=== PATIENT | male | born 1955 | race American Indian/Alaskan Native ===

== ENCOUNTER 2016-10-28 12:21 | Emergency (ER) | payer MEDICAID ==
[2016-10-28] MEDS ORDERED: NORCO 5/325 PO ONE (16:34)
--- NOTE | 2016-10-28 18:00 | XRay Report ---
FINAL REPORT EXAM: XR WRIST 2V RT HISTORY: pain and swelling TECHNIQUE: 2 views of the right wrist PRIORS: None. FINDINGS: Multifocal degenerative articular surface irregularity. Small ossicles adjacent to the scaphoid may be from prior trauma or degenerative change. There is no acute fracture or dislocation. No evidence of osseous lesion. IMPRESSION: No acute skeletal pathology
--- NOTE | 2016-10-28 18:24 | Emergency Department Report ---
ED Extremity Problem HPI - General Chief complaint: Extremity Injury, Upper Stated complaint: RT HAND/WRIST PAIN Time Seen by Provider: 10/28/16 16:17 Source: patient Mode of arrival: Ambulatory Limitations: No Limitations - History of Present Illness Initial comments: PT c/o R wrist pain x 1 week. PT states he noticed the pain after he was cutting the grass. PT states he has had pain like this before and he thought the pain would go away, but it has not. 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 PT has elevated rheumotoid factor on previous admission. MD Complaint: extremity pain, extremity swelling Onset/Timin -: Gradual, week(s) Location: right, upper extremity -: Yes arthralgia, No fever Severity scale (0 -10): 9 Quality: aching Consistency: constant Improves with: medication (motrin ) Worsens with: palpation Associated Symptoms: denies other symptoms - Related Data Home Medications Medication Instructions Recorded Confirmed Last Taken Albuterol Sulfate [Proventil HFA] 2 puff INHALATION PRN PRN 08/30/13 08/04/15 05:00 Diltiazem HCl [Diltiazem ER] 120 mg PO BID 08/30/13 08/04/15 10/19/14 05:00 Hydrochlorothiazide 25 mg PO DAILY 08/30/13 08/04/15 10/04/14 08:00 cloNIDine [Catapres] 0.2 mg PO QHS 05/29/14 08/04/15 10/18/14 21:00 Fluticasone/Salmeterol [Advair 1 puff INHALATION BID 06/29/14 08/04/15 10/19/14 05:00 Diskus 250-50 mcg] Ibuprofen [Motrin 800 MG tab] 1 tab PO Q6HR PRN 10/19/14 08/04/15 10/18/14 08:00 Previous Rx's Medication Instructions Recorded Last Taken Type Acetaminophen/Codeine 1 tab PO Q6H PRN #10 tab 08/04/15 Unknown Rx [Acetaminophen-Codeine #3 TAB] Sulfamethoxazole/Trimethoprim 1 each PO BID #14 tablet 01/20/16 Unknown Rx [Bactrim DS TAB] Allergies Allergy/AdvReac Type Severity Reaction Status Date / Time No Known Allergies Allergy Verified 10/28/16 12:38 ED Review of Systems ROS: Stated complaint: RT HAND/WRIST PAIN Other details as noted in HPI Constitutional: denies: chills, fever Cardiovascular: denies: chest pain Musculoskeletal: as per HPI, joint swelling Skin: denies: rash, change in color ED Past Medical Hx - Past Medical History Hx Hypertension: Yes Hx Arthritis: Yes Hx Seizures: No Hx Asthma: Yes Hx COPD: Yes Additional medical history: "BACK PROBLEMS" - Surgical History Additional Surgical History: LEFT TIB / FIB FX. Patient states had to have hardware removed 1 week after placement due to infection. This was done at [facility] 2011 - Social History Smoking Status: Current Every Day Smoker Substance Use Type: Alcohol - Medications Home Medications: Home Medications Medication Instructions Recorded Confirmed Last Taken Type Albuterol Sulfate [Proventil HFA] 2 puff INHALATION PRN PRN 08/30/13 08/04/15 05:00 History Diltiazem HCl [Diltiazem ER] 120 mg PO BID 08/30/13 08/04/15 10/19/14 05:00 History Hydrochlorothiazide 25 mg PO DAILY 08/30/13 08/04/15 10/04/14 08:00 History cloNIDine [Catapres] 0.2 mg PO QHS 05/29/14 08/04/15 10/18/14 21:00 History Fluticasone/Salmeterol [Advair 1 puff INHALATION BID 06/29/14 08/04/15 10/19/14 05:00 History Diskus 250-50 mcg] Ibuprofen [Motrin 800 MG tab] 1 tab PO Q6HR PRN 10/19/14 08/04/15 10/18/14 08: 00 History Acetaminophen/Codeine 1 tab PO Q6H PRN #10 tab 08/04/15 Unknown Rx [Acetaminophen-Codeine #3 TAB] Sulfamethoxazole/Trimethoprim 1 each PO BID #14 tablet 01/20/16 Unknown Rx [Bactrim DS TAB] ED Physical Exam - General Limitations: No Limitations General appearance: alert, in no apparent distress - Head Head exam: Present: atraumatic, normocephalic - Eye Eye exam: Present: normal appearance, EOMI - Neck Neck exam: Present: normal inspection, full ROM. Absent: tenderness - Respiratory Respiratory exam: Present: normal lung sounds bilaterally. Absent: respiratory distress - Cardiovascular Cardiovascular Exam: Present: regular rate, normal rhythm, normal heart sounds - GI/Abdominal GI/Abdominal exam: Present: soft. Absent: tenderness - Extremities Exam Extremities exam: Present: normal capillary refill, joint swelling (R wrist ) - Expanded Upper Extremity Exam Right Upper Arm exam: Present: normal inspection Elbow exam: Present: normal inspection. Absent: tenderness, swelling Forearm Wrist exam: Present: tenderness, swelling. Absent: ecchymosis, deformity, crepidus, dislocation Hand Wrist exam: Present: full ROM, other (arthritic joints to Arsh hands ) Vascular: Present: normal capillary refill, radial pulse - Back Exam Back exam: Present: normal inspection, full ROM - Neurological Exam Neurological exam: Present: alert, oriented X3 - Psychiatric Psychiatric exam: Present: normal affect, normal mood - Skin Skin exam: Present: warm, dry, intact, normal color. Absent: rash, erythema ED Course Vital Signs 10/28/16 10/28/16 12:34 16:48 Temperature 98.2 F Pulse Rate 80 Respiratory 19 16 Rate Blood Pressure 97/66 O2 Sat by Pulse 95 Oximetry - Reevaluation(s) Reevaluation #1: 10/28/16 18:33 PT states pain decreased sp [place]. PT aware of XR result. PT has no questions regarding plan of care. - Pulse Oximetry Interpretation Digit-Finger Initial Pulse Oximetry Readin Actions Taken: none ED Medical Decision Making - Radiology Data Radiology results: report reviewed, image reviewed R wrist - Multifocal degenerative articular surface irregularity - Differential Diagnosis RA, OA, stress fracture Critical care attestation.: If time is entered above; I have spent that time in minutes in the direct care of this critically ill patient, excluding procedure time. ED Disposition Clinical Impression: Primary osteoarthritis, right wrist Disposition: DISCHARGED TO HOME OR SELFCARE Is pt being admited?: No Does the pt Need Aspirin: No Condition: Stable Instructions: Osteoarthritis (ED) Additional Instructions: No driving or ETOH after taking Tylenol #3 Referrals: PRIMARY CARE, [Primary Care Provider] - 3-5 Days Time of Disposition: 18:37
[2016-10-28 19:12] VITALS: BP 102/72
== END 2016-10-28 19:11 | disposition home or self-care (01) ==
LOC: ED 12:21
DX: M19.031 Primary osteoarthritis, right wrist (principal); I10 Essential (primary) hypertension; M19.90 Unspecified osteoarthritis, unspecified site; J45.909 Unspecified asthma, uncomplicated; J44.9 Chronic obstructive pulmonary disease, unspecified; F17.200 Nicotine dependence, unspecified, uncomplicated

== ENCOUNTER 2016-12-12 08:30 | Day surgery (SDC) | payer MEDICAID ==
[~2016-12-12 08:30] MED LIST: ANCEF/STERILE WATER 2 GM/20 ML 2 GM/20 ML SYRINGE IV NR
[2016-12-12] MEDS ORDERED: NACL BACTERIOSTATIC INFILTRATI ONE (09:07)
[2016-12-12] MEDS ORDERED: SUBLIMAZE IV ONE (09:36)
[2016-12-12] MEDS ORDERED: MORPHINE IV PRN (09:37)
[2016-12-12] MEDS ORDERED: ZOFRAN IV PRN (09:37)
--- NOTE | 2016-12-12 09:38 | Anesthesia Day of Surgery ---
Anesthesia Day of Surgery - Day of Surgery Patient Examined: Yes Patient H&P Reviewed: Yes Patient is NPO: Yes
--- NOTE | 2016-12-12 09:38 | Anesthesia Consultation ---
Anesthesia Consult and Med Hx Date of service: 12/12/16 - Airway Anesthetic Teeth Evaluation: Dentures ROM Head & Neck: Adequate Mental/Hyoid Distance: Adequate Mallampati Class: Class II Intubation Access Assessment: Probably Good - Pulmonary Exam CTA: Yes - Cardiac Exam Cardiac Exam: RRR - Pre-Operative Health Status ASA Pre-Surgery Classification: ASA3 Proposed Anesthetic Plan: General Nerve Block: supraclav - Pulmonary Hx Smoking: Yes (5 cigs/ day) Hx Asthma: Yes COPD: Yes Hx Pneumonia: No Hx Sleep Apnea: No - Cardiovascular System Hx Hypertension: Yes - Central Nervous System Hx Neuromuscular Disorder: No Hx Seizures: No CVA: No Hx Back Pain: Yes Hx Psychiatric Problems: No - Gastrointestinal Hx Gastroesophageal Reflux Disease: No - Endocrine Hx Non-Insulin Dependent Diabetes: No Hx Thyroid Disease: No - Other Systems Hx Alcohol Use: Yes (SOCIAL) Hx Cancer: No
[2016-12-12 09:39] LABS: Basophils % (Auto) 0.6 % (0.0-1.8); Eosinophils % (Auto) 0.9 % (0.0-4.3); Mean Corpuscular HGB Conc 32 % (32-34); Mean Corpuscular Hemoglobin 28 pg (28-32); Mean Corpuscular Volume 85 fl (84-94); Platelet Count 285 K/mm3 (140-440); Red Blood Count 4.35 M/mm3 (3.65-5.03); Red Cell Distribution Width 15.9 % (13.2-15.2); White Blood Count 9.3 K/mm3 (4.5-11.0)
[2016-12-12] MEDS ORDERED: MARCAINE-EPI 0.5%-1:200,000 INFILTRATI ONE (09:42)
[2016-12-12] MEDS ORDERED: DECADRON ONE ×2 (09:42→12:42)
[2016-12-12] MEDS ORDERED: XYLOCAINE 1% 20 mL ONE (09:43)
[2016-12-12] MEDS ORDERED: PROVENTIL IH NR (09:45)
--- NOTE | 2016-12-12 09:51 | Admit Criteria Form ---
Admission Criteria Documentation: AMBULATORY SURGERY EXCEPTION CRITERIA Ambulatory Surgery Exception Criteria ( Place 'X' for any and all applicable criteria): Surgery or procedure performed on ambulatory basis may require inpatient stay for[A] ANY ONE of the following(1)(2)(3)(4)(5)(6)(7)(8)(9): [X] I. A preoperative situation, condition, or finding that warrants inpatient stay as indicated by ANY ONE of the following: [] a) Inpatient care needed because of severity of a disease or condition rather than the surgery (eg, severe cardiac or respiratory disease, severe infection) (15) (16 ) (17) (18) [] b) Emergent procedure (eg, angioplasty for acute ischemia)(19) [] c) Complex surgical approach or situation as indicated by ANY ONE of the following(3): [] i) Open approach needed instead of usual endoscopic, transcatheter, or other less invasive procedure [] ii) Difficult approach because of previous operation [] iii) Airway monitoring required after open neck procedures(20)(21) [] iv) Large mass requiring unusually extensive dissection [] v) Additional complicating feature requiring inpatient care (eg, drain management)(22(23): [X] d) Major surgery in a pt with high anesthetic risk as indicated by ANY ONE of the following (2)(3)(5)(7)(8): [X] i) ASA risk class III or higher (severe systemic disease impairing function) [D] [] ii) Advanced age (eg, older than 85 years)(14)(24) [] iii) Symptomatic heart failure(25) [] iv) Symptomatic asthma or COPD(8)(21) [] v) Morbid obesity with hemodynamic or respiratory problems(20)( 21)(26)(27) [] vi) Obstructive sleep apnea(20)(21) [] vii) Former premature infants who are younger than 60 weeks [] viii) High risk for severe postoperative abnormalities (eg, severe postoperative hypocalcemia after parathyroidectomy for severe hyperparathyroidism)(27)( 28) [] ix) Unstable angina(25) [] e) Drug-related risk requiring inpatient stay as indicated by ANY ONE of the following(5)(10)(14)(32)(33) [] i) Procedure requires discontinuing drugs or other therapy (eg , antiarrhythmic medication, antiseizure medication), which necessitates inpatient observation or treatment.(18)(31) [] ii) Major surgery and high risk drug use as indicated by ANY ONE of the following: [] 1) Active abuse of cocaine or similar drug [] 2) Monoamine oxidase inhibitor use [] 3) Other drug identified as posing risk [] f) Inadequate outpatient care situation as indicated by ANY ONE of the following(5)(10)(14)(32)(33) [] i) Patient lives remote from medical facility and procedure has urgent complication potential, and temporary nearby residence cannot be arranged [] ii) Patient will have postprocedure incapacitation and inadequate assistance at home, or alternative level of care cannot be arranged. [] iii) Patient will have long general anesthesia or procedure side effect resolution time, and competent person to stay with patient on first postoperative night at home or alternative level of care cannot be arranged. []iv) Other inadequate outpatient situation that cannot be handled by other means [] II. A perioperative event, condition, or finding that warrants inpatient stay as indicated by ANY ONE of the following (1)(2)(3): [] a) Inadequate physiologic recovery: cardiovascular, respiratory, or hemodynamic status not normal or near preoperative baseline(18) [] b) Hemodynamic instability [] c) Patient not alert with near normal or baseline mental status [] d) Temperature not normal or as expected and not appropriate for outpatient treatment of condition [] e) Ambulatory or appropriate activity level status not yet achieved post procedure [E](34)(35)(36) [] f) Operative site not appropriate (eg, unexpected or excessive drainage or bleeding) [] g) Postoperative effects not resolved or adequately managed (eg, significant pain or vomiting not appropriate for outpatient or next level of care)(10)(12) [] h) Complicating features requiring inpatient care as indicated by ANY ONE of the following(37): [] i) Severe complications of procedure (eg, bowel injury, airway compromise, vascular injury,severe hemorrhage) [] ii) Extensive (eg, dissection far beyond usual scope of procedure ) or prolonged (eg, 120 minutes beyond usual) surgery needed requiring inpatient postoperative care [] iii) Conversion to an open or complex procedure that requires inpatient care (eg, open vs laparoscopic cholecystectomy, abdominal vs vaginal hysterectomy)(38) [] iv) Comorbid condition or test result identified during or post procedure that requires inpatient care (7) [] v) Malignant hyperthermia(30) [] vi) Other complicating feature requiring inpatient care(22)(23) Inpatient stay may be needed until ALL of the following are present (1)(2)(3)(4) (5)(6)(10)(14)(33)(40): []a) Physiologic recovery: cardiovascular, respiratory, and hemodynamic status normal or near preoperative baseline []b) Hemodynamic stability []c) Patient alert, with near normal or baseline mental status []d) Temperature appropriate: patient afebrile or temperature appropriate for outpt treatment of condition []e) Activity level appropriate: ambulatory or appropriate activity level post procedure []f) Operative site appropriate as indicated by ALL of the following: []i) Site dry or with expected drainage []ii) Any blood noted is as expected for procedure. []g) Postoperative effects resolved or managed as indicated by ALL of the following: []i) Pain management appropriate for outpatient (or next level of) care(10) []ii) Minimal nausea and vomiting: if present, successfully treated with oral medication(12) []iii) Headache, dizziness, or drowsiness (if present) are mild. []h) Voiding status acceptable as indicated by ANY ONE of the following: []i) Voiding spontaneously []ii) No voiding but instructions given for follow-up in 6 to 8 hours []iii) Urinary catheter in place, and instructions given for follow-up []i) Complicating features requiring inpatient care manageable at a lower level of care(37) []j) Comorbid conditions manageable at a lower level of care(37) The original [employer] content created by [employer] has been revised. The portions of the content which have been revised are identified through the use of italic text or in bold, and [employer] has neither reviewed nor approved the modified material. All other unmodified content is copyright [employer]. Please see references footnoted in the original [employer] edition 2016 Admission Criteria Met: Yes
[2016-12-12] MEDS ORDERED: SUBLIMAZE ONE (09:57)
[2016-12-12] MEDS ORDERED: DIPRIVAN 10 MG/ML IV ONE (09:57)
[2016-12-12] MEDS ORDERED: XYLOCAINE MPF 2% ONE (09:59)
[2016-12-12] MEDS ORDERED: VERSED IV NR (10:00)
[2016-12-12] MEDS ORDERED: NACL 0.9% 1000 ML 1,000 ML IV SCH (10:00)
[2016-12-12] MEDS ORDERED: PEPCID PO NR (10:00)
[2016-12-12] MEDS ORDERED: MARCAINE 0.5% INFILTRATI ONE (12:13)
[2016-12-12] MEDS ORDERED: ZOFRAN ONE (12:42)
[2016-12-12] MEDS ORDERED: ePHEDrine SULFATE ONE (12:46)
[2016-12-12] MEDS ORDERED: NACL 0.9% 100 ML ONE (13:07)
[2016-12-12] MEDS ORDERED: NEO SYNEPHRINE ONE (13:07)
--- NOTE | 2016-12-12 13:39 | Short Stay Summary ---
Short Stay Documentation Date of service: 12/12/16 - History H&P: obtained from office - Allergies and Medications Current Medications: Allergies No Known Allergies Allergy (Verified 10/28/16 12:38) Home Medications Medication Instructions Recorded Confirmed Last Taken Type Albuterol Sulfate [Proventil HFA] 2 puff INHALATION PRN PRN 08/30/13 12/12/16 History Diltiazem HCl [Diltiazem ER] 120 mg PO BID 08/30/13 12/12/16 12/12/16 07:00 History Hydrochlorothiazide 25 mg PO DAILY 08/30/13 12/12/16 12/12/16 07:00 History cloNIDine [Catapres] 0.2 mg PO QHS 05/29/14 12/06/16 09/26/16 History Fluticasone/Salmeterol [Advair 1 puff INHALATION BID 06/29/14 12/12/16 12/12/16 07:00 History Diskus 250-50 mcg] Acetaminophen/Codeine [Tylenol #3] 1 tab PO Q6H PRN #12 tab 10/28/16 12/12/16 Rx Active Medications Albuterol (Proventil) 2.5 mg IH PREOP NR Stop: 12/12/16 23:59 Last Admin: 12/12/16 10:20 Dose: 2.5 mg Famotidine (Pepcid) 20 mg PO PREOP NR Stop: 12/12/16 23:59 Last Admin: 12/12/16 09:56 Dose: 20 mg Cefazolin Sodium (Ancef/Sterile Water 2 Gm/20 Ml) 2 gm in 20 mls @ 80 mls/hr IV PREOP NR PRN Reason: Protocol Stop: 12/12/16 23:59 Sodium Chloride (Nacl 0.9% 1000 Ml) 1,000 mls @ 75 mls/hr IV DIRECT DEJA Last Admin: 12/12/16 09:55 Dose: 75 mls/hr Midazolam HCl (Versed) 2 mg IV PREOP NR Stop: 12/12/16 23:59 Last Admin: 12/12/16 10:01 Dose: 2 mg Morphine Sulfate (Morphine) 2 mg IV Q10MIN PRN PRN Reason: Pain, Moderate (4-6) Stop: 12/15/16 09:38 - Brief post op/procedure progress note Date of procedure: 12/12/16 Pre-op diagnosis: 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 Post-op diagnosis: same Procedure: Arthrodesis MP left thumb; Radial styleidectomy left Anesthesia: GETA Surgeon: VINCENT MCADAMS Estimated blood loss: minimal Pathology: none - Disposition Condition at discharge: Stable Disposition: DISCHARGED TO HOME OR SELFCARE Short Stay Discharge Plan Follow up with: MAXWELL SNYDER MD [Primary Care Provider] - 7 Days
--- NOTE | 2016-12-12 13:47 | Post Anesthesia Evaluation ---
- Post Anesthesia Evaluation Patient Participated: Yes Airway Patent: Yes Stable Respiratory Function: Yes Nausea/Vomiting: No Temp > 96.8F: Yes Pain Manageable: Yes Adequeate Hydration: Yes Anesthesia Complications: No Block Receding Appropriately: Not Applicable Patient on Ventilator: No
[2016-12-12 14:03] VITALS: BP 135/78
--- NOTE | 2016-12-12 15:02 | XRay Report ---
RIGHT FINGERS, 2 VIEWS History: Right thumb dislocation, osteoarthritis, pain. Findings: Fluoroscopic images of the right fingers were obtained during surgery. Arthrodesis at the first metacarpophalangeal joint is noted. The hardware appears well applied. No acute fracture is demonstrated. Please correlate with the procedural report by Dr. Emery. Impression: Right thumb arthrodesis as described.
--- NOTE | 2016-12-15 20:43 | Operative Report ---
PREOPERATIVE DIAGNOSIS: Arthritis and dislocation of the MP joint of the right thumb, and arthritis of the carpal radial joint. PROCEDURE: Arthrodesis of the MP joint of the right thumb, and radial styloid ostectomy. SURGEON: Mickey Emery M.D. SUPERINTENDENT PRODUCTION: Johnson Barlow M.D. ANESTHESIA: Local block. COMPLICATIONS: None. DESCRIPTION OF THE PROCEDURE: Once the patient was in the surgical room, a time-out was carried out to identify the patient and procedure. Once this was done, the procedure was carried out by making an incision over the dorsum of the MP joints of the thumb. The tendon at ulnar border retracted radially, exposing the joint. Once this was carried out the joint was found to be degenerative and distal phalanx dislocated volarly. At this point cleaning out of the was carried out with a small hand chisel. Once this was done, using fluoroscopy a guidewire was inserted into the central position of the metacarpal. This allowed for the reaming of the area. The insertion was followed by intramedullary locking screw. Once the screw was inserted, using rasp, rasping of the surface of the metacarpal was carried out to the level of the joint. This allowed for the angle of the 30 degrees for the arthrodesis. A second K-wire was then passed from the proximal metacarpal through the screw into the proximal phalanx. Again, these were checked with fluoroscopy. Once this was done, a measurement of the area was done and a compression screw was inserted into the area. The screw was used to tighten up and compress the arthrodesis site. Once this was done, the procedure was then terminated. X-rays demonstrated good position of the surfaces and compression. Using Vicryl suture the tendon was repaired and closure of the joint was done and subcutaneous tissue. The skin was closed with a running nylon suture. Once this was done, the attention was carried down to the wrist. An incision was carried out for distal radius in the volar surface and dissection was carried down to the subcutaneous tissues was dissected and perfected. This was in the radial styloid and the styloid with scaphoid joints. About 0.5 cm of the distal styloid was then resected using malletted chisel and rongeur. Once the prominences of bone were removed and irrigated, the procedure was then terminated. The wound was irrigated by closing the subcutaneous tissues with Vicryl and skin with a running nylon suture. Once this was done a compression bandage was applied. The patient tolerated the procedure well. There were no complications. JOB# [id number] RONNELL/LALI DUDLEY
== END 2016-12-12 08:31 | disposition home or self-care (01) ==
LOC: OR 08:30
DX: S63.114A Dislocation of metacarpophalangeal joint of right thumb, initial encounter (principal); M19.031 Primary osteoarthritis, right wrist; I10 Essential (primary) hypertension; J43.9 Emphysema, unspecified; J45.909 Unspecified asthma, uncomplicated; F17.210 Nicotine dependence, cigarettes, uncomplicated; Z79.899 Other long term (current) drug therapy; Z72.89 Other problems related to lifestyle; Z83.3 Family history of diabetes mellitus; Z82.49 Family history of ischemic heart disease and other diseases of the circulatory system; Z80.9 Family history of malignant neoplasm, unspecified; Z82.3 Family history of stroke; X58.XXXA Exposure to other specified factors, initial encounter
CPT/HCPCS: 25151; 26850; 36415; 64450; 73140; 84132; 85025; 88304; 88311; C1713; J0690; J1100; J2250; J2370; J2405; J2704; J3010; J7030; 88305

== ENCOUNTER 2017-01-26 14:43 | Emergency (ER) | payer MEDICAID ==
--- NOTE | 2017-01-26 16:25 | XRay Report ---
Right ankle 3 views. History: Pain and swelling. Findings: There are no fractures or other acute findings. Mild soft tissue swelling is noted medially. There are no other significant findings.
[2017-01-26] MEDS ORDERED: PERCOCET 5/325 PO ONE (18:34)
--- NOTE | 2017-01-26 18:34 | Emergency Department Report ---
ED Extremity Problem HPI - General Chief complaint: Extremity Injury, Lower Stated complaint: R FOOT PAIN Time Seen by Provider: 01/26/17 17:19 Source: patient Mode of arrival: Ambulatory Limitations: No Limitations - History of Present Illness Initial comments: PT c/o R ankle pain and swelling. PT sates he woke up yesterday with the pain. PT denies known injury but states he has a lot of joint problems, previous work up for RA negative. PT states he had R thumb surgery 12-12-16 after he fell. PT states at that time, his knees gave out on him. PT states his knees did not recently give out but he could have twisted his ankle on Sun. PT states he walked a lot on Sun. MD Complaint: joint swelling, joint paint Onset/Timin -: days(s) Location: right, lower extremity (ankle ) Severity scale (0 -10): 9 Quality: constant Consistency: constant Improves with: nothing Worsens with: weight bearing, walking Associated Symptoms: denies other symptoms. denies: chest pain, shortness of breath, fever - Related Data Home Medications Medication Instructions Recorded Confirmed Last Taken Albuterol Sulfate [Proventil HFA] 2 puff INHALATION PRN PRN 08/30/13 12/12/16 Diltiazem HCl [Diltiazem ER] 120 mg PO BID 08/30/13 12/12/16 12/12/16 07:00 Hydrochlorothiazide 25 mg PO DAILY 08/30/13 12/12/16 12/12/16 07:00 cloNIDine [Catapres] 0.2 mg PO QHS 05/29/14 12/06/16 09/26/16 Fluticasone/Salmeterol [Advair 1 puff INHALATION BID 06/29/14 12/12/16 12/12/16 07:00 Diskus 250-50 mcg] Previous Rx's Medication Instructions Recorded Last Taken Type Acetaminophen/Codeine [Tylenol #3] 1 tab PO Q6H PRN #7 tab 01/26/17 Unknown Rx Ibuprofen [Motrin] 400 mg PO Q8H PRN #14 tablet 01/26/17 Unknown Rx Allergies Allergy/AdvReac Type Severity Reaction Status Date / Time No Known Allergies Allergy Verified 10/28/16 12:38 ED Review of Systems ROS: Stated complaint: R FOOT PAIN Other details as noted in HPI Comment: All other systems reviewed and negative Constitutional: denies: chills, fever Respiratory: other (pt states he has a hx of COPD but denies being SOB ). denies: shortness of breath Cardiovascular: denies: chest pain Gastrointestinal: denies: abdominal pain, nausea, vomiting Musculoskeletal: joint swelling, other (pt in RUE velcro splint) Skin: denies: rash, change in color ED Past Medical Hx - Past Medical History Hx Hypertension: Yes Hx Arthritis: Yes Hx Seizures: No Hx Asthma: Yes Hx COPD: Yes Hx Tuberculosis: No Hx HIV: No Additional medical history: "BACK PROBLEMS" - Surgical History Additional Surgical History: LEFT TIB / FIB FX. Patient states had to have hardware removed 1 week after placement due to infection. This was done at [facility] 2011 - Social History Smoking Status: Current Every Day Smoker Substance Use Type: None - Medications Home Medications: Home Medications Medication Instructions Recorded Confirmed Last Taken Type Albuterol Sulfate [Proventil HFA] 2 puff INHALATION PRN PRN 08/30/13 12/12/16 History Diltiazem HCl [Diltiazem ER] 120 mg PO BID 08/30/13 12/12/16 12/12/16 07:00 History Hydrochlorothiazide 25 mg PO DAILY 08/30/13 12/12/16 12/12/16 07:00 History cloNIDine [Catapres] 0.2 mg PO QHS 05/29/14 12/06/16 09/26/16 History Fluticasone/Salmeterol [Advair 1 puff INHALATION BID 06/29/14 12/12/16 12/12/16 07:00 History Diskus 250-50 mcg] Acetaminophen/Codeine [Tylenol #3] 1 tab PO Q6H PRN #7 tab 01/26/17 Unknown Rx Ibuprofen [Motrin] 400 mg PO Q8H PRN #14 tablet 01/26/17 Unknown Rx ED Physical Exam - General Limitations: No Limitations General appearance: alert, in no apparent distress - Head Head exam: Present: atraumatic, normocephalic, normal inspection - Eye Eye exam: Present: normal appearance. Absent: conjunctival injection - ENT ENT exam: Present: normal exam, normal external ear exam - Neck Neck exam: Present: normal inspection, full ROM - Respiratory Respiratory exam: Present: wheezes (ext wheeze chloé). Absent: respiratory distress, rhonchi, stridor, accessory muscle use, decreased breath sounds - Cardiovascular Cardiovascular Exam: Present: regular rate, normal rhythm, normal heart sounds - GI/Abdominal GI/Abdominal exam: Present: soft. Absent: tenderness - Extremities Exam Extremities exam: Absent: calf tenderness - Expanded Upper Extremity Exam Right Hand Wrist exam: Absent: normal inspection (surgical scar to R thumb base ), erythema Vascular: Absent: vascular compromise - Expanded Lower Extremity Exam Right Knee exam: Present: normal inspection. Absent: tenderness Lower Leg exam: Present: normal inspection, full ROM. Absent: tenderness, swelling, Sherry's sign Ankle exam: Present: tenderness (to the medial aspect ), swelling. Absent: full ROM (due to pain ), abrasion, ecchymosis, dislocation, erythema Foot/Toe exam: Present: normal inspection. Absent: tenderness, laceration, puncture wound, calcaneal tenderness, tenderness at base of 5th metatarsal Neuro vascular tendon exam: Absent: no vascular compromise Gait: Positive: observed and limited by pain - Back Exam Back exam: Present: normal inspection, full ROM - Neurological Exam Neurological exam: Present: alert, oriented X3 - Psychiatric Psychiatric exam: Present: normal affect, normal mood - Skin Skin exam: Present: warm, dry, intact, normal color ED Course Vital Signs 01/26/17 01/26/17 01/26/17 15:05 18:56 19:30 Temperature 98.5 F Pulse Rate 99 H Respiratory 17 18 18 Rate Blood Pressure 111/75 Blood Pressure [Left] O2 Sat by Pulse 99 Oximetry 01/26/17 19:50 Temperature Pulse Rate 90 Respiratory 18 Rate Blood Pressure Blood Pressure 136/66 [Left] O2 Sat by Pulse 96 Oximetry - Reevaluation(s) Reevaluation #1: 01/26/17 19:25 PT placed in Velcro stirrup splint by nursing. pt nvi. pt aware of need to follow up with ortho ED Medical Decision Making - Radiology Data Radiology results: report reviewed xr R ankle - no fx, mild soft tissue swelling noted medially - Medical Decision Making low risk for DVT due to Well's criteria, negative Sherry's - Differential Diagnosis strain, ra, oa, fx Critical Care Time: No Critical care attestation.: If time is entered above; I have spent that time in minutes in the direct care of this critically ill patient, excluding procedure time. ED Disposition Clinical Impression: Acute right ankle pain Disposition: TO HOME OR SELFCARE Is pt being admited?: No Does the pt Need Aspirin: No Condition: Stable Instructions: Ankle Sprain (ED), Ankle Stirrup Splint (ED), Arthralgia (ED), RICE Therapy (ED) Additional Instructions: follow up with Ortho in 3-5 days No driving or alcohol after taking Tylenol #3 return to ED if worsening or concerns Prescriptions: Acetaminophen/Codeine [Tylenol #3] 1 tab PO Q6H PRN #7 tab PRN Reason: Pain , Severe (7-10) Ibuprofen [Motrin] 400 mg PO Q8H PRN #14 tablet PRN Reason: Pain Referrals: PRIMARY CARE, [Primary Care Provider] - 3-5 Days DELFINO MOJICA MD [Staff Physician] - 3-5 Days ATUL BERNAL MD [Staff Physician] - 3-5 Days Time of Disposition: 19:31
[2017-01-26 21:03] VITALS: BP 136/66
== END 2017-01-26 19:50 | disposition home or self-care (01) ==
LOC: ED 14:43
DX: M25.571 Pain in right ankle and joints of right foot (principal); F17.200 Nicotine dependence, unspecified, uncomplicated; M19.90 Unspecified osteoarthritis, unspecified site; J44.9 Chronic obstructive pulmonary disease, unspecified; J45.909 Unspecified asthma, uncomplicated; X58.XXXA Exposure to other specified factors, initial encounter; Y93.89 Activity, other specified; Y99.8 Other external cause status; Y92.89 Other specified places as the place of occurrence of the external cause

== ENCOUNTER 2017-06-26 09:36 | Emergency (ER) | payer MEDICAID ==
--- NOTE | 2017-06-26 10:27 | Emergency Department Report ---
- General Chief Complaint: Skin/Abscess/Foreign Body Stated Complaint: NECK PAIN Time Seen by Provider: 06/26/17 10:23 Source: patient Mode of arrival: Ambulatory Limitations: No Limitations - History of Present Illness Initial Comments: Patient reports an abscess on his neck that started one week ago, however he attempted to squeezed the abscess which has resulted in an infective rash Onset/Timin -: week(s) Location: neck Place: home Associated Symptoms: pain Treatments Prior to Arrival: bandage - Related Data Home Medications Medication Instructions Recorded Confirmed Last Taken Albuterol Sulfate [Proventil HFA] 2 puff INHALATION PRN PRN 08/30/13 12/12/16 Diltiazem HCl [Diltiazem 24Hr ER] 120 mg PO BID 08/30/13 12/12/16 12/12/16 07:00 Hydrochlorothiazide 25 mg PO DAILY 08/30/13 12/12/16 12/12/16 07:00 cloNIDine [Catapres] 0.2 mg PO QHS 05/29/14 12/06/16 09/26/16 Fluticasone/Salmeterol [Advair 1 puff INHALATION BID 06/29/14 12/12/16 12/12/16 07:00 Diskus 250-50 mcg] Previous Rx's Medication Instructions Recorded Last Taken Type Acetaminophen/Codeine [Tylenol #3] 1 tab PO Q6H PRN #7 tab 01/26/17 Unknown Rx Ibuprofen [Motrin] 400 mg PO Q8H PRN #14 tablet 01/26/17 Unknown Rx Acetaminophen [Tylenol Extra 500 mg PO Q6HRT #30 tablet 06/26/17 Unknown Rx Strength] Clindamycin [Clindamycin CAP] 300 mg PO Q8H #30 cap 06/26/17 Unknown Rx Allergies Allergy/AdvReac Type Severity Reaction Status Date / Time No Known Allergies Allergy Verified 06/26/17 09:58 ED Review of Systems ROS: Stated complaint: NECK PAIN Other details as noted in HPI Constitutional: denies: chills, diaphoresis, fever, malaise, weakness Eyes: denies: eye pain, eye discharge, vision change ENT: denies: ear pain, throat pain, dental pain, hearing loss Respiratory: denies: cough, orthopnea, shortness of breath, SOB with exertion, SOB at rest, stridor, wheezing Cardiovascular: denies: chest pain, palpitations, dyspnea on exertion, orthopnea Gastrointestinal: denies: abdominal pain, nausea, vomiting, diarrhea, constipation Musculoskeletal: denies: back pain, joint swelling, arthralgia Skin: rash (anterior neck), change in color (anterior neck). denies: lesions, change in hair/nails, pruritus Neurological: denies: headache, weakness, numbness, paresthesias, confusion Psychiatric: denies: anxiety, depression Hematological/Lymphatic: denies: easy bleeding, easy bruising, swollen glands ED Past Medical Hx - Past Medical History Previous Medical History?: Yes Hx Hypertension: Yes Hx Arthritis: Yes Hx Seizures: No Hx Asthma: Yes Hx COPD: Yes Hx Tuberculosis: No Hx HIV: No Additional medical history: "BACK PROBLEMS" - Surgical History Additional Surgical History: LEFT TIB / FIB FX. Patient states had to have hardware removed 1 week after placement due to infection. This was done at [facility] 2011. Thumb dislocation with reduction - Social History Smoking Status: Current Every Day Smoker Substance Use Type: None - Medications Home Medications: Home Medications Medication Instructions Recorded Confirmed Last Taken Type Albuterol Sulfate [Proventil HFA] 2 puff INHALATION PRN PRN 08/30/13 12/12/16 History Diltiazem HCl [Diltiazem 24Hr ER] 120 mg PO BID 08/30/13 12/12/16 12/12/16 07: 00 History Hydrochlorothiazide 25 mg PO DAILY 08/30/13 12/12/16 12/12/16 07:00 History cloNIDine [Catapres] 0.2 mg PO QHS 05/29/14 12/06/16 09/26/16 History Fluticasone/Salmeterol [Advair 1 puff INHALATION BID 06/29/14 12/12/16 12/12/16 07:00 History Diskus 250-50 mcg] Acetaminophen/Codeine [Tylenol #3] 1 tab PO Q6H PRN #7 tab 01/26/17 Unknown Rx Ibuprofen [Motrin] 400 mg PO Q8H PRN #14 tablet 01/26/17 Unknown Rx Acetaminophen [Tylenol Extra 500 mg PO Q6HRT #30 tablet 06/26/17 Unknown Rx Strength] Clindamycin [Clindamycin CAP] 300 mg PO Q8H #30 cap 06/26/17 Unknown Rx ED Physical Exam - General Limitations: No Limitations General appearance: alert, in no apparent distress - Head Head exam: Present: atraumatic, normocephalic, normal inspection - Eye Eye exam: Present: normal appearance, PERRL, EOMI - ENT ENT exam: Present: normal exam, normal orophraynx, mucous membranes moist. Absent: mucous membranes dry - Neck Neck exam: Present: tenderness, full ROM, other (2 cm lesion with erythema and induration, no fluctuance). Absent: meningismus, lymphadenopathy, thyromegaly - Respiratory Respiratory exam: Present: normal lung sounds bilaterally. Absent: respiratory distress, wheezes, rales, rhonchi, stridor, chest wall tenderness, accessory muscle use, decreased breath sounds, prolonged expiratory - Cardiovascular Cardiovascular Exam: Present: regular rate, normal rhythm, normal heart sounds. Absent: systolic murmur, diastolic murmur, rubs, gallop - Extremities Exam Extremities exam: Present: normal inspection, full ROM, normal capillary refill. Absent: tenderness, pedal edema, joint swelling - Back Exam Back exam: Present: normal inspection, full ROM. Absent: tenderness, CVA tenderness (R), CVA tenderness (L) - Neurological Exam Neurological exam: Present: alert, oriented X3, CN II-XII intact, normal gait, reflexes normal. Absent: motor sensory deficit - Psychiatric Psychiatric exam: Present: normal affect, normal mood. Absent: depressed, agitated - Skin Skin exam: Present: warm, dry, intact, normal color ED Course Vital Signs 06/26/17 06/26/17 09:58 10:41 Temperature 98 F 98.7 F Pulse Rate 79 75 Respiratory 18 16 Rate Blood Pressure 137/88 Blood Pressure 116/74 [Left] O2 Sat by Pulse 97 96 Oximetry ED Medical Decision Making - Lab Data Vital Signs 06/26/17 06/26/17 09:58 10:41 Temperature 98 F 98.7 F Pulse Rate 79 75 Respiratory 18 16 Rate Blood Pressure 137/88 Blood Pressure 116/74 [Left] O2 Sat by Pulse 97 96 Oximetry - Medical Decision Making During the course of ED, all other systems are unremarkable except for documentation in HPI. Patient was instructed to apply a warm compress to the area three times a day, prescribed Clindamycin and Tylenol ES, instructed to follow up with PCP this week. He verbalized understanding - Differential Diagnosis Cellulitis, Abscess Critical care attestation.: If time is entered above; I have spent that time in minutes in the direct care of this critically ill patient, excluding procedure time. ED Disposition Clinical Impression: Cellulitis Qualifiers: Site of cellulitis: neck Qualified Code(s): L03.221 - Cellulitis of neck Disposition: DC- TO HOME OR SELFCARE Is pt being admited?: No Does the pt Need Aspirin: No Condition: Stable Additional Instructions: Take medication as directed. Apply a warm compress to the area three times a day. Follow up with your PCP Prescriptions: Acetaminophen [Tylenol Extra Strength] 500 mg PO Q6HRT #30 tablet Clindamycin [Clindamycin CAP] 300 mg PO Q8H #30 cap Referrals: MAXWELL SNYDER MD [Primary Care Provider] - 3-5 Days Time of Disposition: 10:33
[2017-06-26 10:42] VITALS: BP 116/74
== END 2017-06-26 10:42 | disposition home or self-care (01) ==
LOC: ED 09:36
DX: L03.221 Cellulitis of neck (principal); I10 Essential (primary) hypertension; M19.90 Unspecified osteoarthritis, unspecified site; J45.909 Unspecified asthma, uncomplicated; J44.9 Chronic obstructive pulmonary disease, unspecified; F17.200 Nicotine dependence, unspecified, uncomplicated
CPT/HCPCS: 99282

== ENCOUNTER 2017-07-31 12:17 | Emergency (ER) | payer MEDICAID ==
[2017-07-31 14:08] VITALS: BP 97/62
== END 2017-07-31 22:39 | disposition left against medical advice (07) ==
LOC: ED 12:17
DX: J11.1 Influenza due to unidentified influenza virus with other respiratory manifestations (principal); Z53.21 Procedure and treatment not carried out due to patient leaving prior to being seen by health care provider
CPT/HCPCS: 87116; 87400; 87430

== ENCOUNTER 2019-01-24 17:29 | Outpatient (CLI) | payer MEDICAID | END 2019-01-24 17:30 | disposition home or self-care (01) | LOC: LAB 17:29 | PROVIDERS: ATTEND Internal Medicine Nephrology | DX: I12.9 Hypertensive chronic kidney disease with stage 1 through stage 4 chronic kidney disease, or unspecified chronic kidney disease (principal); N18.3 Chronic kidney disease, stage 3 (moderate); E83.42 Hypomagnesemia; N40.0 Benign prostatic hyperplasia without lower urinary tract symptoms; E87.5 Hyperkalemia | CPT/HCPCS: 36415; 80048 ==

== ENCOUNTER 2019-09-21 15:57 | Emergency (ER) | payer MEDICAID ==
--- NOTE | 2019-09-21 16:23 | Event Note ---
ED Screening Note Date of service: 09/21/19 Time: 16:21 ED Screening Note: c/o bilateral lower leg swelling and pain x 2 weeks and chronic right knee pain hx of arthritis denies hx of CHF This initial assessment/diagnostic orders/clinical plan/treatment(s) is/are subject to change based on patients health status, clinical progression and re- assessment by fellow clinical providers in the ED. Further treatment and workup at subsequent clinical providers discretion. Patient/guardian urged not to elope from the ED as their condition may be serious if not clinically assessed and managed. Initial orders include: labs
[2019-09-21 16:25] VITALS: BP 132/76
[2019-09-21 16:48] LABS: Basophils % (Auto) 0.7 % (0.0-1.8); Eosinophils # (Auto) 0.2 K/mm3 (0.0-0.4); Eosinophils % (Auto) 4.9 % (0.0-4.3); Hematocrit 27.4 % (35.5-45.6); Hemoglobin 8.4 gm/dl (11.8-15.2); Lymphocytes # (Auto) 0.8 K/mm3 (1.2-5.4); Lymphocytes % (Auto) 19.5 % (13.4-35.0); Mean Corpuscular HGB Conc 31 % (32-34); Mean Corpuscular Volume 72 fl (84-94); Monocytes # (Auto) 0.6 K/mm3 (0.0-0.8); Platelet Count 237 K/mm3 (140-440); Red Blood Count 3.79 M/mm3 (3.65-5.03); Red Cell Distribution Width 18.8 % (13.2-15.2)
[2019-09-21 17:04] LABS: Albumin 3.2 g/dL (3.9-5); Bilirubin,Direct 0.2 mg/dL (0-0.2); Calcium 9.1 mg/dL (8.4-10.2)
--- NOTE | 2019-09-21 17:41 | Emergency Department Report ---
ED Extremity Problem HPI - General Chief complaint: Extremity Problem,Nontraumatic Stated complaint: RT KNEE AND RT AND LT ANKLE PAIN Time Seen by Provider: 09/21/19 16:21 Source: patient, old records reviewed Mode of arrival: Ambulatory Limitations: No Limitations - History of Present Illness Initial comments: 64-year-old man e with a past medical history of osteoarthritis with chronic joint, COPD, asthma, hypertension, chronic joint pain presents to the hospital with complaints of progressive worsening lower extremity edema for the last 1 month. Patient presents with significant bilateral ankle edema. Patient has chronic shortness of breath due to COPD and has slept in a recliner since his hip replacement in June. Patient states he has been elevating his legs intermittently. He denies history of CHF in the past. Patient does see Dr. Patel high pressure cleaner and has labs ordered in January [address] Dejesus on record. Patient states that he was on Lasix however, they were discontinued at that time due to worsening renal function. Patient is not currently on any diuretics and takes Lokelma for his kidneys. Patient has a secondary complaint of right knee pain which is chronic with no reports of acute injury. PMD: Not affiliated - Related Data Home Medications Medication Instructions Recorded Confirmed Last Taken Albuterol Sulfate [Proventil HFA] 2 puff INHALATION PRN PRN 08/30/13 12/12/16 12/11/16 Diltiazem HCl [Diltiazem 24Hr ER] 120 mg PO BID 08/30/13 12/12/16 12/12/16 07:00 hydroCHLOROthiazide 25 mg PO DAILY 08/30/13 12/12/16 12/12/16 07:00 [Hydrochlorothiazide] cloNIDine [Catapres] 0.2 mg PO QHS 05/29/14 12/06/16 09/26/16 Fluticasone/Salmeterol [Advair 1 puff INHALATION BID 06/29/14 12/12/16 12/12/16 07:00 Diskus 250-50 mcg] Previous Rx's Medication Instructions Recorded Last Taken Type Acetaminophen/Codeine [Tylenol #3] 1 tab PO Q6H PRN #7 tab 01/26/17 Unknown Rx Ibuprofen [Motrin] 400 mg PO Q8H PRN #14 tablet 01/26/17 Unknown Rx Acetaminophen [Tylenol Extra 500 mg PO Q6HRT #30 tablet 06/26/17 Unknown Rx Strength] Clindamycin [Clindamycin CAP] 300 mg PO Q8H #30 cap 06/26/17 Unknown Rx Prednisone [predniSONE 5 mg (6-Day 5 mg PO .TAPER #1 tab.ds.pk 07/05/18 Unknown Rx Pack, 21 Tabs)] Sulfamethoxazole/Trimethoprim 2 each PO BID #28 tablet 07/05/18 Unknown Rx [Bactrim DS TAB] traMADoL [Ultram] 50 mg PO Q6HR PRN #20 tablet 07/05/18 Unknown Rx Furosemide [Lasix TAB] 20 mg PO BID #60 tablet 09/21/19 Unknown Rx Allergies Allergy/AdvReac Type Severity Reaction Status Date / Time No Known Allergies Allergy Verified 07/05/18 11:28 ED Review of Systems ROS: Stated complaint: RT KNEE AND RT AND LT ANKLE PAIN Other details as noted in HPI Comment: All other systems reviewed and negative ED Past Medical Hx - Past Medical History Previous Medical History?: Yes Hx Hypertension: Yes Hx Renal Disease: Yes Hx Arthritis: Yes (OA right hip) Hx Seizures: No Hx Asthma: Yes Hx COPD: Yes Hx Tuberculosis: No Hx HIV: No Additional medical history: "BACK PROBLEMS" - Surgical History Past Surgical History?: Yes Additional Surgical History: LEFT TIB / FIB FX/right hip 06/2019. Patient states had to have hardware removed 1 week after placement due to infection. This was done at [facility] 2011. Thumb dislocation with reduction - Social History Smoking Status: Former Smoker Substance Use Type: None - Medications Home Medications: Home Medications Medication Instructions Recorded Confirmed Last Taken Type Albuterol Sulfate [Proventil HFA] 2 puff INHALATION PRN PRN 08/30/13 12/12/16 12/11/16 History Diltiazem HCl [Diltiazem 24Hr ER] 120 mg PO BID 08/30/13 12/12/16 12/12/16 07:00 History hydroCHLOROthiazide 25 mg PO DAILY 08/30/13 12/12/16 12/12/16 07:00 History [Hydrochlorothiazide] cloNIDine [Catapres] 0.2 mg PO QHS 05/29/14 12/06/16 09/26/16 History Fluticasone/Salmeterol [Advair 1 puff INHALATION BID 06/29/14 12/12/16 12/12/16 07:00 History Diskus 250-50 mcg] Acetaminophen/Codeine [Tylenol #3] 1 tab PO Q6H PRN #7 tab 01/26/17 Unknown Rx Ibuprofen [Motrin] 400 mg PO Q8H PRN #14 tablet 01/26/17 Unknown Rx Acetaminophen [Tylenol Extra 500 mg PO Q6HRT #30 tablet 06/26/17 Unknown Rx Strength] Clindamycin [Clindamycin CAP] 300 mg PO Q8H #30 cap 06/26/17 Unknown Rx Prednisone [predniSONE 5 mg (6-Day 5 mg PO .TAPER #1 tab.ds.pk 07/05/18 Unknown Rx Pack, 21 Tabs)] Sulfamethoxazole/Trimethoprim 2 each PO BID #28 tablet 07/05/18 Unknown Rx [Bactrim DS TAB] traMADoL [Ultram] 50 mg PO Q6HR PRN #20 tablet 07/05/18 Unknown Rx Furosemide [Lasix TAB] 20 mg PO BID #60 tablet 09/21/19 Unknown Rx ED Physical Exam - General Limitations: No Limitations - Other Other exam information: General: No acute distress Head: Atraumatic Eyes: normal appearance, nonicteric sclera ENT: Moist mucous membranes Neck: Normal appearance, no midline tenderness Chest: Mild crackles at the right base, no tachypnea or accessory muscle use CV: Regular rate and rhythm Abdomen: Soft, normal bowel sounds, nontender, nondistended, no rebound or guard ing Back: Normal inspection Extremity: No gross abnormality to right knee with full range of motion. No warmth or erythema. No edema. Bilateral significant pitting ankle edema with swelling extending up to the distal leg. Bilateral 2+ DP pulses. No warmth, erythema, or tenderness. Full range of motion of ankles Neuro: Alert O x 3, no facial asymmetry, speech clear, no gross motor sensory deficit Psych: Appropriate behavior Skin: No rash ED Course Vital Signs 09/21/19 16:18 Temperature 98.2 F Pulse Rate 90 Respiratory 18 Rate Blood Pressure 132/76 O2 Sat by Pulse 93 Oximetry - Consultations Consultation #1: 09/21/19 18:28 Case discussed with on-call high pressure cleaner for Dr. Patel. Case discussed with Dr. Magaña. He suggested to start Lasix 20 mg twice daily with a one-month prescri ption. Recommends to continue Lokelma and to follow-up with Dr. Patel within 1 week. ED Medical Decision Making - Lab Data Result diagrams: 09/21/19 16:32 09/21/19 16:32 Lab Results 09/21/19 09/21/19 Range/Units 16:32 16:32 WBC 4.3 L (4.5-11.0) K/mm3 RBC 3.79 (3.65-5.03) M/mm3 Hgb 8.4 L (11.8-15.2) gm/dl Hct 27.4 L (35.5-45.6) % MCV 72 L (84-94) fl MCH 22 L (28-32) pg MCHC 31 L (32-34) % RDW 18.8 H (13.2-15.2) % Plt Count 237 (140-440) K/mm3 Lymph % (Auto) 19.5 (13.4-35.0) % [place] % (Auto) 13.0 H (0.0-7.3) % Eos % (Auto) 4.9 H (0.0-4.3) % Baso % (Auto) 0.7 (0.0-1.8) % Lymph # 0.8 L (1.2-5.4) K/mm3 [place] # 0.6 (0.0-0.8) K/mm3 Eos # 0.2 (0.0-0.4) K/mm3 Baso # 0.0 (0.0-0.1) K/mm3 Seg Neutrophils % 61.9 (40.0-70.0) % Seg Neutrophils # 2.7 (1.8-7.7) K/mm3 Sodium 139 (137-145) mmol/L Potassium 4.5 (3.6-5.0) mmol/L Chloride 99.5 (98-107) mmol/L Carbon Dioxide 26 (22-30) mmol/L Anion Gap 18 mmol/L BUN 25 H (9-20) mg/dL Creatinine 1.7 H (0.8-1.5) mg/dL Estimated GFR 50 ml/min BUN/Creatinine Ratio 15 % Glucose 116 H (75-100) mg/dL Calcium 9.1 (8.4-10.2) mg/dL Total Bilirubin 0.60 (0.1-1.2) mg/dL Direct Bilirubin 0.2 (0-0.2) mg/dL Indirect Bilirubin 0.4 mg/dL AST 18 (5-40) units/L ALT 9 (7-56) units/L Alkaline Phosphatase 191 H (35-129) units/L NT-Pro-B Natriuret Pep 9632 H (0-900) pg/mL Total Protein 7.3 (6.3-8.2) g/dL Albumin 3.2 L (3.9-5) g/dL Albumin/Globulin Ratio 0.8 % - Radiology Data Radiology results: report reviewed CHEST 2 VIEWS, 09/21/2019 5:45 PM INDICATION: Shortness of breath COMPARISON: None. Prior chest radiograph from 08/29/2012 was unable to be retrieved from the archives. FINDINGS: Support devices: None Heart: The heart is normal in size. Lungs/pleura: The lungs are clear of focal airspace disease or significant pleural effusion. Additional findings: No significant acute abnormality. IMPRESSION: 1. No evidence of acute cardiopulmonary process. - Medical Decision Making Patient presents with 1 month of progressively worsening ankle edema without any signs of pulmonary edema. Patient has chronic renal insufficiency and is follow ed by Dr. Patel. Case discussed with nephrology/Dr. Patel's partner who suggested Lasix 20 mg twice daily and to continue current medications. Follow- up within 1 week recommended. Patient will need close monitoring to ensure that his kidney function does not worsen while on Lasix. Patient also will be encouraged to elevate his legs. Patient provided 1 dose of Lasix 20 mg p.o. in the ED prior to discharge. - Differential Diagnosis Liver failure, kidney care failure, venous insufficiency Critical Care Time: No Critical care attestation.: If time is entered above; I have spent that time in minutes in the direct care of this critically ill patient, excluding procedure time. ED Disposition Clinical Impression: Bilateral lower extremity edema, Chronic renal insufficiency, Hypoalbuminemia Disposition: -01 TO HOME OR SELFCARE Is pt being admited?: No Does the pt Need Aspirin: No Condition: Stable Instructions: Leg Edema (ED), Chronic Kidney Disease (ED) Additional Instructions: Take the medication as prescribed. Follow-up with your doctor or doctor/clinic provided. Return if symptoms worsen as indicated by your discharge instructions. It is very important that you follow-up with the kidney specialist within 1 week to ensure that your kidney function is not worsening while you are on the Lasix. Continue to keep your legs elevated as much as possible to encourage improvement in swelling. Prescriptions: Furosemide [Lasix TAB] 20 mg PO BID #60 tablet Referrals: MARYSOL PATEL MD [Staff Physician] - 7-10 days (follow up within 1 week with your kidney doctor ) Time of Disposition: 18:34
--- NOTE | 2019-09-21 17:58 | XRay Report ---
CHEST 2 VIEWS, 09/21/2019 5:45 PM INDICATION: Shortness of breath COMPARISON: None. Prior chest radiograph from 08/29/2012 was unable to be retrieved from the archives. FINDINGS: Support devices: None Heart: The heart is normal in size. Lungs/pleura: The lungs are clear of focal airspace disease or significant pleural effusion. Additional findings: No significant acute abnormality. IMPRESSION: 1. No evidence of acute cardiopulmonary process. Signer Name: Sherrill Sage MD Signed: 09/21/2019 5:54 PM Workstation Name: [id number]
[2019-09-21] MEDS ORDERED: FUROSEMIDE 20 MG TAB PO ONE (18:27)
== END 2019-09-21 18:43 | disposition home or self-care (01) ==
LOC: ED 15:57
DX: R60.0 Localized edema (principal); E88.09 Other disorders of plasma-protein metabolism, not elsewhere classified; I12.9 Hypertensive chronic kidney disease with stage 1 through stage 4 chronic kidney disease, or unspecified chronic kidney disease; N18.9 Chronic kidney disease, unspecified; J44.9 Chronic obstructive pulmonary disease, unspecified; Z87.891 Personal history of nicotine dependence; M13.851 Other specified arthritis, right hip; Z79.899 Other long term (current) drug therapy
CPT/HCPCS: 36415; 71046; 80048; 80076; 83880; 85025

== ENCOUNTER 2019-09-29 14:59 | Outpatient (CLI) | payer MEDICAID ==
[2019-09-29 15:42] LABS: Calcium 9.6 mg/dL (8.4-10.2)
== END 2019-09-29 15:00 | disposition home or self-care (01) ==
LOC: LAB 14:59
PROVIDERS: ATTEND Internal Medicine Nephrology
DX: I12.9 Hypertensive chronic kidney disease with stage 1 through stage 4 chronic kidney disease, or unspecified chronic kidney disease (principal); N18.3 Chronic kidney disease, stage 3 (moderate)
CPT/HCPCS: 36415; 80048; 83735

== ENCOUNTER 2021-04-14 17:23 | Inpatient (IN) | payer MEDICARE ==
[2021-04-14 17:59] LABS: Hematocrit 38.8 % (35.5-45.6); Hemoglobin 12.2 gm/dl (11.8-15.2); Mean Corpuscular HGB Conc 32 % (32-34); Mean Corpuscular Volume 86 fl (84-94); Platelet Count 202 K/mm3 (140-440); Red Blood Count 4.52 M/mm3 (3.65-5.03)
[2021-04-14 18:11] LABS: Calcium 9.9 mg/dL (8.4-10.2); Red Cell Distribution Width 24.2 % (13.2-15.2)
--- NOTE | 2021-04-14 18:21 | XRay Report ---
Chest 2 views INDICATION: Dyspnea. Possible pneumothorax. IMPRESSION: There is hyperlucency identified involving the right lung base. It is unclear if this rep resents a bleb or a small right basilar pneumothorax. The lungs are otherwise well expanded. Emphysem a noted bilaterally. Signer Name: Alberto De Paz MD Signed: 04/14/2021 6:17 PM Workstation Name: [id number]
--- NOTE | 2021-04-14 18:29 | Emergency Department Report ---
ED Shortness of Breath HPI - General Chief Complaint: Dyspnea/Respdistress Stated Complaint: COLAPSE LUNG Time Seen by Provider: 04/14/21 17:38 Source: patient Mode of arrival: Ambulatory Limitations: No Limitations - History of Present Illness Initial Comments: Patient is a 65-year-old F Burmese male who has a past medical history of lung cancer who is oxygen dependent as well as end-stage renal disease who is presenting with a possible pneumothorax. Patient had a routine PET scan done today. That was ordered by his oncologist. He was called by home after the PET scan told he could return to the emergency department because he had a possible pneumothorax seen on PET scan. Patient states he feels at his baseline. States with his oxygen he is at his baseline level of breathing. Denies any additional cough shortness of breath. Denies any fevers chills. Patient has not missed any appointments with his dialysis. Patient has a port for his chemotherapy as well as a permacatheter for dialysis. Neither of the have been placed in the mt st 30 days - Related Data Home Medications Medication Instructions Recorded Confirmed Last Taken Albuterol Sulfate [Proventil HFA] 2 puff INHALATION PRN PRN 08/30/13 04/14/21 12/11/16 hydroCHLOROthiazide 25 mg PO DAILY 08/30/13 04/14/21 12/12/16 07:00 [Hydrochlorothiazide] cloNIDine [Catapres] 0.2 mg PO QHS 05/29/14 04/14/21 09/26/16 Fluticasone/Salmeterol [Advair 1 puff INHALATION BID 06/29/14 04/14/21 12/12/16 07:00 Diskus 250-50 mcg] Previous Rx's Medication Instructions Recorded Last Taken Type Acetaminophen/Codeine [Tylenol #3] 1 tab PO Q6H PRN #7 tab 01/26/17 Unknown Rx traMADoL [Ultram] 50 mg PO Q6HR PRN #20 tablet 07/05/18 Unknown Rx Furosemide [Lasix TAB] 20 mg PO BID #60 tablet 09/21/19 Unknown Rx Allergies Allergy/AdvReac Type Severity Reaction Status Date / Time No Known Allergies Allergy Verified 04/14/21 17:38 ED Review of Systems ROS: Stated complaint: COLAPSE LUNG Other details as noted in HPI Comment: All other systems reviewed and negative ED Past Medical Hx - Past Medical History Hx Hypertension: Yes Hx Renal Disease: Yes Hx Arthritis: Yes (OA right hip) Hx Seizures: No Hx Asthma: Yes Hx COPD: Yes Hx Tuberculosis: No Hx HIV: No Additional medical history: "BACK PROBLEMS" - Surgical History Additional Surgical History: LEFT TIB / FIB FX/right hip 06/2019. Patient states had to have hardware removed 1 week after placement due to infection. This was done at [facility] 2011. Thumb dislocation with reduction - Social History Smoking Status: Former Smoker Substance Use Type: None - Medications Home Medications: Home Medications Medication Instructions Recorded Confirmed Last Taken Type Albuterol Sulfate [Proventil HFA] 2 puff INHALATION PRN PRN 08/30/13 04/14/21 12/11/16 History hydroCHLOROthiazide 25 mg PO DAILY 08/30/13 04/14/21 12/12/16 07:00 History [Hydrochlorothiazide] cloNIDine [Catapres] 0.2 mg PO QHS 05/29/14 04/14/21 09/26/16 History Fluticasone/Salmeterol [Advair 1 puff INHALATION BID 06/29/14 04/14/21 12/12/16 07:00 History Diskus 250-50 mcg] Acetaminophen/Codeine [Tylenol #3] 1 tab PO Q6H PRN #7 tab 01/26/17 04/14/21 Unknown Rx traMADoL [Ultram] 50 mg PO Q6HR PRN #20 tablet 07/05/18 04/14/21 Unknown Rx Furosemide [Lasix TAB] 20 mg PO BID #60 tablet 09/21/19 04/14/21 Unknown Rx ED Physical Exam - General Limitations: No Limitations General appearance: alert, in no apparent distress - Head Head exam: Present: atraumatic, normocephalic - Eye Eye exam: Present: normal appearance, PERRL, EOMI - ENT ENT exam: Present: mucous membranes moist - Neck Neck exam: Present: normal inspection - Respiratory Respiratory exam: Present: rhonchi. Absent: normal lung sounds bilaterally, respiratory distress, wheezes, rales - Cardiovascular Cardiovascular Exam: Present: regular rate, normal rhythm, normal heart sounds. Absent: systolic murmur, diastolic murmur, rubs, gallop - GI/Abdominal GI/Abdominal exam: Present: soft, normal bowel sounds. Absent: distended, tenderness, guarding, rebound - Rectal Rectal exam: Present: deferred - Extremities Exam Extremities exam: Present: normal inspection - Back Exam Back exam: Present: normal inspection - Neurological Exam Neurological exam: Present: alert, oriented X3 - Psychiatric Psychiatric exam: Present: normal affect, normal mood - Skin Skin exam: Present: warm, dry, intact, normal color. Absent: rash ED Course Vital Signs 04/14/21 04/14/21 04/14/21 17:28 17:43 17:46 Temperature 98.0 F 97.8 F Pulse Rate 89 107 H 124 H Respiratory 20 24 21 Rate Blood Pressure 121/67 Blood Pressure 101/75 [Right] O2 Sat by Pulse 89 96 98 Oximetry 04/14/21 04/14/21 04/14/21 18:05 18:31 18:37 Temperature Pulse Rate 107 H Respiratory 20 Rate Blood Pressure 121/79 117/76 Blood Pressure [Right] O2 Sat by Pulse 99 100 Oximetry 04/14/21 04/14/21 04/14/21 19:01 19:31 20:00 Temperature Pulse Rate 107 H 102 H 98 H Respiratory 21 22 18 Rate Blood Pressure 127/88 127/88 127/88 Blood Pressure [Right] O2 Sat by Pulse 100 100 100 Oximetry 04/14/21 20:31 Temperature Pulse Rate 103 H Respiratory 21 Rate Blood Pressure Blood Pressure [Right] O2 Sat by Pulse 100 Oximetry - Reevaluation(s) Reevaluation #1: 04/14/21 18:29 X-ray is consistent with a right basilar pneumothorax versus a bleb. Will CT the patient to get more detail. Pt placed in NRN mask 04/14/21 18:29 ED Medical Decision Making - Lab Data Result diagrams: 04/14/21 17:42 04/14/21 17:42 - Radiology Data [facility] [address] [place] [address] XRay Report Signed Patient: ROWENA RESENDEZ JR MR#: [id number] : 1955 Acct:[id number] Age/Sex: 65 / M ADM Date: 04/14/21 Loc: ED Attending Dr: Ordering Physician: ANNA KIM MD Date of Service: 04/14/21 Procedure(s): XR chest routine 2V Accession Number(s): [id number] cc: ANNA KIM MD Fluoro Time In Minutes: Chest 2 views INDICATION: Dyspnea. Possible pneumothorax. IMPRESSION: There is hyperlucency identified involving the right lung base. It is unclear if this represents a bleb or a small right basilar pneumothorax. The lungs are otherwise well expanded. Emphysema noted bilaterally. Signer Name: Alberto De Paz MD Signed: 04/14/2021 6:17 PM Workstation Name: [email or web address] Ordering Physician: ANNA KIM MD Date of Service: 04/14/21 Procedure(s): CT chest wo con Accession Number(s): [id number] cc: ANNA KIM MD CT OF THE CHEST WITHOUT CONTRAST INDICATION / CLINICAL INFORMATION: Right basilar lucency on CXR. Pneumothorax versus bleb. TECHNIQUE: All CT scans at this location are performed using CT dose reduction for ALARA by means of automated exposure control. COMPARISON: CXR earlier today. FINDINGS: There is a moderately large right pneumothorax anteriorly and medially. No left pneumothorax is seen. There are extensive bullous changes in both lungs, especially the apices. There are patchy parenchymal opacities in both lower lobes posteromedially, predominantly related to peribronchial thickening and bronchiectasis. There is more focal mild patchy consolidation in the left lower lobe. No pleural effusion. No adenopathy. The heart size is normal. There is marked coronary artery calcification. There are mild atherosclerotic calcifications involving aorta without acute abnormality. The visualized upper abdomen is unremarkable. No acute osseous abnormality is seen. IMPRESSION: 1. Moderately large right pneumothorax. 2. Severe bullous emphysema. 3. Mild bronchiectasis and peribronchial thickening in both lower lobes. There is mild associated pneumonia, predominantly in the left lower lobe. Signer Name: Bryon Gutierrez MD Signed: 04/14/2021 8:37 PM Workstation Name: [email or web address] - Medical Decision Making Patient is 65-year-old F Burmese male with a past medical history of lung cancer. Tumors on the left base. Patient was called stating that he had to come to the emergency department because there was pneumothorax seen on PET scan . Upright x-ray shows a small bleb versus basilar pneumothorax on the right. CT was ordered to confirm which showed that he potentially had a moderate sized pneumothorax with bullous emphysematous changes as well. Looked at the patient's CT myself and I believe that the patient's CT changes are likely secondary to just the bullous emphysematous changes. Is difficult to determine whether there is actually a pneumothorax given the clinical picture that the patient feels fine and is at his baseline. Patient states at no time did he have any increase in his shortness of breath or any pain on the right side. Discussed the case with Dr. Ramirez with general surgery we have decided to place the patient on a nonrebreather overnight and the patient will have reimaging done. We both agree that there is a large discrepancy between the x- ray and CT reports. Dr. Ramirez states that if he believes that the patient does indeed have a pneumothorax after 100% NRB overnight we will place a chest tube. Patient will be admitted to the hospital service. We will keep the patient on a nonrebreather overnight. Critical care attestation.: If time is entered above; I have spent that time in minutes in the direct care of this critically ill patient, excluding procedure time. ED Disposition Clinical Impression: Bullous emphysema with collapse, ESRD (end stage renal disease) Disposition: ADMITTED INPATIENT Is pt being admited?: Yes Does the pt Need Aspirin: No Condition: Stable Instructions: Chronic Obstructive Pulmonary Disease (ED) Time of Disposition: 21:51
--- NOTE | 2021-04-14 20:41 | Cat Scan Report ---
CT OF THE CHEST WITHOUT CONTRAST INDICATION / CLINICAL INFORMATION: Right basilar lucency on CXR. Pneumothorax versus bleb. TECHNIQUE: All CT scans at this location are performed using CT dose reduction for ALARA by means of automated exposure control. COMPARISON: CXR earlier today. FINDINGS: There is a moderately large right pneumothorax anteriorly and medially. No left pneumothorax is seen. There are extensive bullous changes in both lungs, especially the apices. There are patchy parenchymal opacities in both lower lobes posteromedially, predominantly related to peribronchial thickening and bronchiectasis. There is more focal mild patchy consolidation in the lef t lower lobe. No pleural effusion. No adenopathy. The heart size is normal. There is marked coronary artery calcification. There are mild atherosclerot ic calcifications involving aorta without acute abnormality. The visualized upper abdomen is unremark able. No acute osseous abnormality is seen. IMPRESSION: 1. Moderately large right pneumothorax. 2. Severe bullous emphysema. 3. Mild bronchiectasis and peribronchial thickening in both lower lobes. There is mild associated pne umonia, predominantly in the left lower lobe. Signer Name: Bryon Gutierrez MD Signed: 04/14/2021 8:37 PM Workstation Name: [id number]
[2021-04-14] MEDS ORDERED: ONDANSETRON 4 MG/2 ML INJ IV PRN (22:01)
[2021-04-14] MEDS ORDERED: ALBUTEROL 2.5 MG/3 ML NEBU IH PRN (22:01)
[2021-04-14] MEDS ORDERED: ACETAMINOPHEN 325 MG TAB PO PRN (22:01)
[2021-04-14] MEDS ORDERED: HYDROmorphone 1 MG/1 ML INJ IV PRN (22:01)
[2021-04-14] MEDS ORDERED: ALBUTEROL 8.5 GM MDI INHALATION IH PRN (22:04)
--- NOTE | 2021-04-14 22:11 | History and Physical Report ---
History of Present Illness Date of examination: 04/14/21 Date of admission: 04/14/21 Chief complaint: Shortness of breath Possible pneumothorax History of present illness: 65-year-old male with history of lung cancer and end-stage renal disease on hemodialysis was brought to the emergency room because of possible pneumothorax. Patient had a routine PET scan done today. That was ordered by his oncologist. He was called by home after the PET scan told he could return to the emergency department because he had a possible pneumothorax seen on PET scan. Patient states he feels at his baseline. States with his oxygen he is at his baseline level of breathing. Denies any additional cough shortness of breath. Denies any fevers chills. Patient has not missed any appointments with his dialysis. Patient has a port for his chemotherapy as well as a permacatheter for dialysis. Neither of the have been placed in the last [address] scan of the chest in the emergency room showed: 1. Moderately large right pneumothorax. 2. Severe bullous emphysema. 3. Mild bronchiectasis and peribronchial thickening in both lower lobes. There is mild associated pneumonia, predominantly in the left lower lobe. Looked at the patient's CT by Dr. Espinal believe that the patient's CT changes are likely secondary to just the bullous emphysematous changes. Is difficult to determine whether there is actually a pneumothorax given the clinical picture that the patient feels fine and is at his baseline. Patient states at no time did he have any increase in his shortness of breath or any pain on the right side. Discussed the case with Dr. Ramirez with general surgery we have decided to place the patient on a nonrebreather overnight and the patient will have reimaging done. Dr. Espinal and Dr. Ramirez agree that there is a large discrepancy between the x-ray and CT reports. Dr. Ramirez states that if he believes that the patient does indeed have a pneumothorax after 100% NRB overnight we will place a chest tube. We will admit the patient to the [facility] overnight. We will repeat the CT scan in the morning. Dr. Ramirez will reevaluate the CT scan in the morning. We also consult pulmonary for evaluation Past History Past Medical History: arthritis, COPD, ESRD, hypertension, other (Lung cancer, asthma, back problem) Medications and Allergies Allergies Allergy/AdvReac Type Severity Reaction Status Date / Time No Known Allergies Allergy Verified 04/14/21 17:38 Home Medications Medication Instructions Recorded Confirmed Last Taken Type Albuterol Sulfate [Proventil HFA] 2 puff INHALATION PRN PRN 08/30/13 04/14/21 12/11/16 History hydroCHLOROthiazide 25 mg PO DAILY 08/30/13 04/14/21 12/12/16 07:00 History [Hydrochlorothiazide] cloNIDine [Catapres] 0.2 mg PO QHS 05/29/14 04/14/21 09/26/16 History Fluticasone/Salmeterol [Advair 1 puff INHALATION BID 06/29/14 04/14/21 12/12/16 07:00 History Diskus 250-50 mcg] Acetaminophen/Codeine [Tylenol #3] 1 tab PO Q6H PRN #7 tab 01/26/17 04/14/21 Un known Rx traMADoL [Ultram] 50 mg PO Q6HR PRN #20 tablet 07/05/18 04/14/21 Unknown Rx Furosemide [Lasix TAB] 20 mg PO BID #60 tablet 09/21/19 04/14/21 Unknown Rx Active Meds: Active Medications Acetaminophen (Acetaminophen 325 Mg Tab) 650 mg PO Q4H PRN PRN Reason: Pain MILD(1-3)/Fever >100.5/[place] Albuterol (Albuterol 2.5 Mg/3 Ml Nebu) 2.5 mg IH Q4HRT PRN PRN Reason: Shortness Of Breath Albuterol (Albuterol 8.5 Gm Mdi Inhalation) 2 puff IH PRN PRN PRN Reason: Dyspnea Albuterol/Ipratropium (Ipratropium/Albuterol Sulfate 3 Ml Ampul.Neb) 1 ampul IH Q6HRT DEJA Clonidine HCl (Clonidine 0.2 Mg Tab) 0.2 mg PO QHS DEJA Famotidine (Famotidine 20 Mg Tab) 20 mg PO BID DEJA Furosemide (Furosemide 20 Mg Tab) 20 mg PO BID DEJA Heparin Sodium (Porcine) (Heparin 5,000 Unit/1 Ml Vial) 5,000 unit SUB-Q Q12HR DEJA Hydrochlorothiazide (Hydrochlorothiazide 25 Mg Tab) 25 mg PO DAILY DEJA Hydromorphone HCl (Hydromorphone 1 Mg/1 Ml Inj) 0.5 mg IV Q3H PRN PRN Reason: Pain , Severe (7-10) Miscellaneous Medication (Fluticasone/Salmeterol [Advair Diskus 250-50 Mcg]) 1 puff INHALATION BID DEJA Ondansetron HCl (Ondansetron 4 Mg/2 Ml Inj) 4 mg IV Q8H PRN PRN Reason: Nausea And Vomiting Oxycodone/Acetaminophen (Oxycodone /Acetaminophen 5-325mg Tab) 1 tab PO Q6H PRN PRN Reason: Pain, Moderate (4-6) Sodium Chloride (Sodium Chloride 0.9% 10 Ml Flush Syringe) 10 ml IV BID DEJA Sodium Chloride (Sodium Chloride 0.9% 10 Ml Flush Syringe) 10 ml IV PRN PRN PRN Reason: LINE FLUSH Review of Systems All systems: negative Respiratory: other (Collapsed lung) Exam - Constitutional Vitals: Temp Pulse Resp BP Pulse Ox 97.8 F 103 H 21 127/88 100 04/14/21 17:46 04/14/21 20:31 04/14/21 20:31 04/14/21 20:00 04/14/21 20:31 General appearance: Present: no acute distress, well-nourished - EENT Eyes: Present: PERRL ENT: hearing intact, clear oral mucosa - Neck Neck: Present: supple, normal ROM - Respiratory Respiratory effort: normal Respiratory: bilateral: diminished - Cardiovascular Heart Sounds: Present: S1 & S2. Absent: rub, click - Extremities Extremities: pulses symmetrical, No edema Peripheral Pulses: within normal limits - Abdominal General gastrointestinal: Present: soft, non-tender, non-distended, normal bowel sounds Male genitourinary: Present: normal - Integumentary Integumentary: Present: clear, warm, dry - Musculoskeletal Musculoskeletal: gait normal, strength equal bilaterally - Psychiatric Psychiatric: appropriate mood/affect, intact judgment & insight - Neurologic Neurologic: CNII-XII intact, moves all extremities Results - Labs CBC & Chem 7: 04/14/21 17:42 04/14/21 17:42 Labs: Laboratory Last Values WBC 1.9 K/mm3 (4.5-11.0) L* 04/14/21 17:42 RBC 4.52 M/mm3 (3.65-5.03) 04/14/21 17:42 Hgb 12.2 gm/dl (11.8-15.2) 04/14/21 17:42 Hct 38.8 % (35.5-45.6) 04/14/21 17:42 MCV 86 fl (84-94) 04/14/21 17:42 MCH 27 pg (28-32) L 04/14/21 17:42 MCHC 32 % (32-34) 04/14/21 17:42 RDW 24.2 % (13.2-15.2) H 04/14/21 17:42 Plt Count 202 K/mm3 (140-440) 04/14/21 17:42 Sodium 133 mmol/L (137-145) L 04/14/21 17:42 Potassium 4.2 mmol/L (3.6-5.0) 04/14/21 17:42 Chloride 87.8 mmol/L (98-107) L 04/14/21 17:42 Carbon Dioxide 29 mmol/L (22-30) 04/14/21 17:42 Anion Gap 20 mmol/L 04/14/21 17:42 BUN 45 mg/dL (9-20) H 04/14/21 17:42 Creatinine 5.4 mg/dL (0.8-1.3) H 04/14/21 17:42 Estimated GFR 13 ml/min 04/14/21 17:42 BUN/Creatinine Ratio 8 % 04/14/21 17:42 Glucose 115 mg/dL (75-100) H 04/14/21 17:42 Calcium 9.9 mg/dL (8.4-10.2) 04/14/21 17:42 - Imaging and Cardiology CT scan - chest: report reviewed Assessment and Plan VTE prophylaxis?: Chemical Plan of care discussed with patient/family: Yes - Patient Problems (1) Bullous emphysema with collapse Current Visit: Yes Status: Acute Plan to address problem: Admit the patient to the IMCU overnight. We will put the patient on 100% nonrebreather. DuoNeb by nebulizer every 4 hours. Albuterol via nebulizer every 4 hours as needed. We will repeat the CT scan of the chest in the morning. Will consult surgery Dr. James Vega as well as pulmonary evaluation. We will monitor the patient closely (2) Pneumothorax Current Visit: Yes Status: Acute Plan to address problem: We will put the patient on 100% nonrebreather. DuoNeb by nebulizer every 4 hours. Albuterol via nebulizer every 4 hours as needed. We will repeat the CT scan of the chest in the morning. Will consult surgery Dr. James Vega as well as pulmonary evaluation. We will monitor the patient closely (3) ESRD (end stage renal disease) Current Visit: Yes Status: Acute Plan to address problem: Avoid nephrotoxic drug. Renally dose medication. Will consult nephrology for dialysis in the morning. Recheck BMP in the morning (4) COPD (chronic obstructive pulmonary disease) Current Visit: Yes Status: Acute Plan to address problem: . Oxygen 100% nonrebreather. DuoNeb by nebulizer every 4 hours. Albuterol via nebulizer every 4 hours as needed. We continue the home medication (5) Hypertension Current Visit: Yes Status: Acute Plan to address problem: Clonidine 0.2 mg p.o. nightly. Hydrochlorothiazide 25 mg p.o. daily. We will continue the home medication. We will monitor the blood pressure closely (6) DVT prophylaxis Current Visit: Yes Status: Acute Plan to address problem: Heparin 5000 units subcu every 8 hours for DVT prophylaxis. Pepcid 20 mg p.o. twice daily for GI prophylaxis. Patient is a full code
[2021-04-14 23:53] LABS: Total Cells Counted 100
[2021-04-14 23:54] LABS: Anisocytosis 2+
[2021-04-14 23:55] LABS: Platelet Estimate Consistent w Auto; Schistocytes Rare; Tear Drop Cells Rare
[2021-04-15] MEDS: IPRATROPIUM/ALBUTEROL SULFATE 3 ML AMPUL.NEB IH SCH ×4 (01:51→19:00)
[2021-04-15 04:58] LABS: Calcium 9.6 mg/dL (8.4-10.2)
[2021-04-15] MEDS ORDERED: SODIUM CHLORIDE 0.9% 100 ML IV PRN (07:50)
--- NOTE | 2021-04-15 08:04 | Progress Note ---
Assessment and Plan Assessment and plan: --Bullous emphysema with collapse Current Visit: Yes Status: Acute Patient is on supplemental oxygen supportive care Patient uses 2 L of nasal cannula oxygen as needed at home repeat chest x-ray and CT scan of the chest this morning Surgery following and pulmonary consulted --Right pneumothorax Current Visit: Yes Status: Acute Currently patient has no symptoms , no shortness of breath or chest pain Dr. Ramirez surgeon and pulmonary critical Dr. Reddy evaluated the patient As patient is stable ,no intervention needed, advised closely monitor overnight Repeat chest x-ray in the morning and patient is Stable to be transferred out of [facility] to telemetry --History of lung cancer; Current Visit: Yes Status: Chronic Patient follows with his oncologist upon discharge --ESRD (end stage renal disease) Current Visit: Yes Status: Acute Hemodialysis per schedule, nephrology evaluated the patient HD per schedule -- History of COPD (chronic obstructive pulmonary disease) Current Visit: Yes Status: Acute With bullous emphysema, home oxygen dependent 2 L nasal cannula DuoNeb by nebulizer steroids supportive care -- Hypertension/moderate control Current Visit: Yes Status: Acute Continue current antihypertensives , clonidine and hydrochlorothiazide As needed hydralazine, closely monitor blood pressures --DVT prophylaxis Current Visit: Yes Status: Acute Heparin 5000 units subcu renal dose. 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 The aggregate critical care time was [60] minutes. This time is in addition to time spent performing reported procedures but includes the following: [x] Data Review and interpretation [x] Patient assessment and monitoring of vital signs [x] Documentation [x] Medication orders and management History Interval history: I have seen and examined the patient at the bedside in [facility] 65 yo male patient with past medical history of lung cancer had a PET scan as a follow-up visit which revealed possible right pneumothorax Patient was sent to emergency room for further evaluation and management, Patient is clinically and hemodynamically stable without shortness of breath or chest pain. Alert awake oriented x3 responding appropriately No new complaints Hospitalist Physical - Constitutional Vitals: Temp Pulse Resp BP Pulse Ox 97.6 F 90 15 150/87 97 04/15/21 04:00 04/15/21 06:00 04/15/21 06:00 04/15/21 06:00 04/15/21 06:00 General appearance: Present: no acute distress, well-nourished - EENT Eyes: Present: PERRL, EOM intact - Neck Neck: Present: supple, normal ROM - Respiratory Respiratory effort: normal Respiratory: bilateral: diminished, negative: rales, rhonchi, wheezing - Cardiovascular Rhythm: regular Heart Sounds: Present: S1 & S2 - Extremities Extremities: no ischemia, No edema - Abdominal General gastrointestinal: soft, non-tender, non-distended, normal bowel sounds - Integumentary Integumentary: Present: clear, warm - Psychiatric Psychiatric: appropriate mood/affect, cooperative - Neurologic Neurologic: no focal deficits, moves all extremities Results - Labs CBC & Chem 7: 04/14/21 17:42 04/15/21 04:13 Labs: Laboratory Last Values WBC 1.9 K/mm3 (4.5-11.0) L* 04/14/21 17:42 RBC 4.52 M/mm3 (3.65-5.03) 04/14/21 17:42 Hgb 12.2 gm/dl (11.8-15.2) 04/14/21 17:42 Hct 38.8 % (35.5-45.6) 04/14/21 17:42 MCV 86 fl (84-94) 04/14/21 17:42 MCH 27 pg (28-32) L 04/14/21 17:42 MCHC 32 % (32-34) 04/14/21 17:42 RDW 24.2 % (13.2-15.2) H 04/14/21 17:42 Plt Count 202 K/mm3 (140-440) 04/14/21 17:42 Add Manual Diff Complete 04/14/21 17:42 Total Counted 100 04/14/21 17:42 Seg Neuts % (Manual) 38.0 % (40.0-70.0) L 04/14/21 17:42 Lymphocytes % (Manual) 56.0 % (13.4-35.0) H 04/14/21 17:42 Monocytes % (Manual) 3.0 % (0.0-7.3) 04/14/21 17:42 Eosinophils % (Manual) 2.0 % (0.0-4.3) 04/14/21 17:42 Basophils % (Manual) 1.0 % (0.0-1.8) 04/14/21 17:42 Nucleated RBC % Not Reportable 04/14/21 17:42 Seg Neutrophils # Man 0.7 K/mm3 (1.8-7.7) L 04/14/21 17:42 Band Neutrophils # 0.0 K/mm3 04/14/21 17:42 Lymphocytes # (Manual) 1.1 K/mm3 (1.2-5.4) L 04/14/21 17:42 Abs React Lymphs (Man) 0.0 K/mm3 04/14/21 17:42 Monocytes # (Manual) 0.1 K/mm3 (0.0-0.8) 04/14/21 17:42 Eosinophils # (Manual) 0.0 K/mm3 (0.0-0.4) 04/14/21 17:42 Basophils # (Manual) 0.0 K/mm3 (0.0-0.1) 04/14/21 17:42 Metamyelocytes # 0.0 K/mm3 04/14/21 17:42 Myelocytes # 0.0 K/mm3 04/14/21 17:42 Promyelocytes # 0.0 K/mm3 04/14/21 17:42 Blast Cells # 0.0 K/mm3 04/14/21 17:42 WBC Morphology Not Reportable 04/14/21 17:42 Hypersegmented Neuts Not Reportable 04/14/21 17:42 Hyposegmented Neuts Not Reportable 04/14/21 17:42 Hypogranular Neuts Not Reportable 04/14/21 17:42 Smudge Cells Not Reportable 04/14/21 17:42 Toxic Granulation Not Reportable 04/14/21 17:42 Toxic Vacuolation Not Reportable 04/14/21 17:42 Dohle Bodies Not Reportable 04/14/21 17:42 Pelger-Huet Anomaly Not Reportable 04/14/21 17:42 Greg Rods Not Reportable 04/14/21 17:42 Platelet Estimate Consistent w auto 04/14/21 17:42 Clumped Platelets Not Reportable 04/14/21 17:42 Plt Clumps, EDTA Not Reportable 04/14/21 17:42 Large Platelets Not Reportable 04/14/21 17:42 Giant Platelets Not Reportable 04/14/21 17:42 Platelet Satelliting Not Reportable 04/14/21 17:42 Plt Morphology Comment Not Reportable 04/14/21 17:42 RBC Morphology Not Reportable 04/14/21 17:42 Dimorphic RBCs Not Reportable 04/14/21 17:42 Polychromasia Not Reportable 04/14/21 17:42 Hypochromasia Not Reportable 04/14/21 17:42 Poikilocytosis Not Reportable 04/14/21 17:42 Anisocytosis 2+ 04/14/21 17:42 Microcytosis Not Reportable 04/14/21 17:42 Macrocytosis Not Reportable 04/14/21 17:42 Spherocytes Not Reportable 04/14/21 17:42 Pappenheimer Bodies Not Reportable 04/14/21 17:42 Sickle Cells Not Reportable 04/14/21 17:42 Target Cells Not Reportable 04/14/21 17:42 Tear Drop Cells Rare 04/14/21 17:42 Ovalocytes Not Reportable 04/14/21 17:42 Helmet Cells Not Reportable 04/14/21 17:42 Oliver-Hawthorn Bodies Not Reportable 04/14/21 17:42 Phelan Rings Not Reportable 04/14/21 17:42 Isabelle Cells Not Reportable 04/14/21 17:42 Bite Cells Not Reportable 04/14/21 17:42 Crenated Cell Not Reportable 04/14/21 17:42 Elliptocytes Not Reportable 04/14/21 17:42 Acanthocytes (Spur) Not Reportable 04/14/21 17:42 Rouleaux Not Reportable 04/14/21 17:42 Hemoglobin C Crystals Not Reportable 04/14/21 17:42 Schistocytes Rare 04/14/21 17:42 Malaria parasites Not Reportable 04/14/21 17:42 Mio Bodies Not Reportable 04/14/21 17:42 Hem Pathologist Commnt No 04/14/21 17:42 Sodium 132 mmol/L (137-145) L 04/15/21 04:13 Potassium 4.2 mmol/L (3.6-5.0) 04/15/21 04:13 Chloride 90.2 mmol/L (98-107) L 04/15/21 04:13 Carbon Dioxide 29 mmol/L (22-30) 04/15/21 04:13 Anion Gap 17 mmol/L 04/15/21 04:13 BUN 51 mg/dL (9-20) H 04/15/21 04:13 Creatinine 5.8 mg/dL (0.8-1.3) H 04/15/21 04:13 Estimated GFR 12 ml/min 04/15/21 04:13 BUN/Creatinine Ratio 9 % 04/15/21 04:13 Glucose 102 mg/dL (75-100) H 04/15/21 04:13 Calcium 9.6 mg/dL (8.4-10.2) 04/15/21 04:13 Hammond/IV: Voiding Method Urinal Active Medications - Current Medications Current Medications: Generic Name Dose Route Start Last Admin Trade Name Freq PRN Reason Stop Dose Admin Acetaminophen 650 mg 04/14/21 22:01 Acetaminophen 325 Mg Tab PO Q4H PRN Pain MILD(1-3)/Fever >100.5/[place] Albuterol 2.5 mg 04/14/21 22:01 Albuterol 2.5 Mg/3 Ml Nebu IH Q4HRT PRN Shortness Of Breath Albuterol/Ipratropium 1 ampul 04/15/21 02:00 04/15/21 01:51 Ipratropium/Albuterol Sulfate 3 Ml Ampul.Neb IH 1 ampul Q6HRT ON LICENSE OF [facility] Administration Arformoterol Tartrate 15 mcg 04/15/21 08:00 Arformoterol 15 Mcg/2 Ml Nebu IH Q12HRT DEJA Budesonide 0.5 mg 04/15/21 08:00 Budesonide 0.5 Mg/2 Ml Nebu IH Q12HRT DEJA Clonidine HCl 0.2 mg 04/15/21 22:00 Clonidine 0.2 Mg Tab PO QHS DEJA Famotidine 10 mg 04/15/21 10:00 Famotidine 10 Mg Tab PO BID DEJA Furosemide 20 mg 04/15/21 10:00 Furosemide 20 Mg Tab PO BID ON LICENSE OF [facility] Heparin Sodium (Porcine) 5,000 unit 04/15/21 10:00 Heparin 5,000 Unit/1 Ml Vial SUB-Q Q12HR DEJA Hydrochlorothiazide 25 mg 04/15/21 10:00 Hydrochlorothiazide 25 Mg Tab PO DAILY DEJA Hydromorphone HCl 0.5 mg 04/14/21 22:01 Hydromorphone 1 Mg/1 Ml Inj IV Q3H PRN Pain , Severe (7-10) Sodium Chloride 100 mls @ 999 mls/hr 04/15/21 07:50 Nacl 0.9% IV TIFFANIE PRN Hypotension Ondansetron HCl 4 mg 04/14/21 22:01 Ondansetron 4 Mg/2 Ml Inj IV Q8H PRN Nausea And Vomiting Oxycodone/Acetaminophen 1 tab 04/14/21 22:01 Oxycodone /Acetaminophen 5-325mg Tab PO Q6H PRN Pain, Moderate (4-6) Sodium Chloride 10 ml 04/15/21 10:00 Sodium Chloride 0.9% 10 Ml Flush Syringe IV BID DEJA Sodium Chloride 10 ml 04/14/21 22:01 Sodium Chloride 0.9% 10 Ml Flush Syringe IV PRN PRN LINE FLUSH
--- NOTE | 2021-04-15 08:51 | XRay Report ---
CHEST - 2 VIEWS INDICATION: f/u Rt.Pneumothorax COMPARISON: Yesterday FINDINGS: SUPPORT DEVICES: Stable support device positioning. HEART: Stable cardiomediastinal silhouette. LUNGS/PLEURA: Extensive bullous disease again seen in the right greater than left lungs with no appr eciable pneumothorax identified. Streaky airspace disease versus scarring again seen in the right mid lung and there is persistent patchy left greater than right basilar airspace disease. ADDITIONAL FINDINGS: None. IMPRESSION: Unchanged exam. No appreciable pneumothorax identified. Signer Name: Dario Clement MD Signed: 04/15/2021 8:46 AM Workstation Name: [id number]
--- NOTE | 2021-04-15 09:30 | Cat Scan Report ---
CT CHEST WITH AND WITHOUT CONTRAST INDICATION / CLINICAL INFORMATION: Pneumothorax OMNI 300 100 ML. TECHNIQUE: Axial CT images were obtained through the chest before and after 100 cc IV contrast. All CT scans at this location are performed using CT dose reduction for ALARA by means of automated exposure control. COMPARISON: CT chest 04/14/2021 FINDINGS: HEART: No significant abnormality. THORACIC AORTA: No significant abnormality. MEDIASTINUM and MONA: No significant abnormality. LUNGS: Extensive bullous emphysema both upper lobes. Bilateral lower lobe bronchiectasis and dependen t atelectasis, unchanged PLEURA: No significant pleural effusion. Stable moderate sized right pneumothorax measuring 2.7 cm im age 84, previously measuring 2.6 cm image 46 ADDITIONAL FINDINGS: Right internal jugular Port-A-Cath and left internal jugular dialysis catheters again have tips in SVC UPPER ABDOMEN: No significant abnormality. SKELETAL SYSTEM: No significant abnormality. IMPRESSION: 1. Stable moderate right pneumothorax without chest tube 2. Bronchiectasis and dependent atelectasis both lower lobes, unchanged 3. Severe bullous emphysema, unchanged Signer Name: Newton Hernandes MD Signed: 04/15/2021 9:26 AM Workstation Name: [id number]
[2021-04-15] MEDS ORDERED: FAMOTIDINE 20 MG TAB PO SCH (10:00)
[2021-04-15] MEDS ORDERED: NON-FORMULARY EACH (Fluticasone/Salmeterol [Advair Diskus 250-50 Mcg] 1 EACH Disk.W.Dev) INHALATION SCH (10:00)
[2021-04-15 11:10] LABS: Hepatitis C Virus Antibody Non-Reactive (NonReactive)
[2021-04-15 11:14] LABS: Hepatitis B Surface Antigen Nonreactive (Negative)
[2021-04-15] MEDS: BUDESONIDE 0.5 MG/2 ML NEBU IH SCH ×3 (11:20→19:00)
[2021-04-15] MEDS: ARFORMOTEROL 15 MCG/2 ML NEBU IH SCH ×3 (11:20→19:00)
--- NOTE | 2021-04-15 13:51 | Consultation ---
History of Present Illness Consult date: 04/15/21 Requesting physician: CAROL OLSON Reason for consult: pneumothorax History of present illness: PULMONARY/CCM CONSULT NOTE (Full dictation # [id number]) Please see dictated notes for full details Past History Past Medical History: arthritis, COPD, ESRD, hypertension, other (Lung cancer, asthma, back problem) Medications and Allergies Allergies Allergy/AdvReac Type Severity Reaction Status Date / Time No Known Allergies Allergy Verified 04/14/21 17:38 Home Medications Medication Instructions Recorded Confirmed Last Taken Type Albuterol Sulfate [Proventil HFA] 2 puff INHALATION PRN PRN 08/30/13 04/14/21 12/11/16 History hydroCHLOROthiazide 25 mg PO DAILY 08/30/13 04/14/21 12/12/16 07:00 History [Hydrochlorothiazide] cloNIDine [Catapres] 0.2 mg PO QHS 05/29/14 04/14/21 09/26/16 History Fluticasone/Salmeterol [Advair 1 puff INHALATION BID 06/29/14 04/14/21 12/12/16 07:00 History Diskus 250-50 mcg] Acetaminophen/Codeine [Tylenol #3] 1 tab PO Q6H PRN #7 tab 01/26/17 04/14/21 Unknown Rx traMADoL [Ultram] 50 mg PO Q6HR PRN #20 tablet 07/05/18 04/14/21 Unknown Rx Furosemide [Lasix TAB] 20 mg PO BID #60 tablet 09/21/19 04/14/21 Unknown Rx Active Meds: Active Medications Acetaminophen (Acetaminophen 325 Mg Tab) 650 mg PO Q4H PRN PRN Reason: Pain MILD(1-3)/Fever >100.5/[place] Albuterol (Albuterol 2.5 Mg/3 Ml Nebu) 2.5 mg IH Q4HRT PRN PRN Reason: Shortness Of Breath Albuterol/Ipratropium (Ipratropium/Albuterol Sulfate 3 Ml Ampul.Neb) 1 ampul IH Q6HRT [facility] Last Admin: 04/15/21 13:27 Dose: Not Given Documented by: Arformoterol Tartrate (Arformoterol 15 Mcg/2 Ml Nebu) 15 mcg IH Q12HRT DEJA Last Admin: 04/15/21 13:02 Dose: 15 mcg Documented by: Budesonide (Budesonide 0.5 Mg/2 Ml Nebu) 0.5 mg IH Q12HRT DEJA Last Admin: 04/15/21 13:02 Dose: 0.5 mg Documented by: Clonidine HCl (Clonidine 0.2 Mg Tab) 0.2 mg PO QHS DEJA Famotidine (Famotidine 10 Mg Tab) 10 mg PO BID DEJA Furosemide (Furosemide 20 Mg Tab) 20 mg PO BID DEJA Heparin Sodium (Porcine) (Heparin 5,000 Unit/1 Ml Vial) 5,000 unit SUB-Q Q12HR DEJA Hydrochlorothiazide (Hydrochlorothiazide 25 Mg Tab) 25 mg PO DAILY DEJA Hydromorphone HCl (Hydromorphone 1 Mg/1 Ml Inj) 0.5 mg IV Q3H PRN PRN Reason: Pain , Severe (7-10) Sodium Chloride (Nacl 0.9%) 100 mls @ 999 mls/hr IV TIFFANIE PRN PRN Reason: Hypotension Ondansetron HCl (Ondansetron 4 Mg/2 Ml Inj) 4 mg IV Q8H PRN PRN Reason: Nausea And Vomiting Oxycodone/Acetaminophen (Oxycodone /Acetaminophen 5-325mg Tab) 1 tab PO Q6H PRN PRN Reason: Pain, Moderate (4-6) Sodium Chloride (Sodium Chloride 0.9% 10 Ml Flush Syringe) 10 ml IV BID DEJA Sodium Chloride (Sodium Chloride 0.9% 10 Ml Flush Syringe) 10 ml IV PRN PRN PRN Reason: LINE FLUSH Physical Examination Vital signs: Vital Signs Temp Pulse Resp BP Pulse Ox 98.0 F 89 20 121/67 89 04/14/21 17:28 04/14/21 17:28 04/14/21 17:28 04/14/21 17:28 04/14/21 17:28 Results - Laboratory Findings CBC and BMP: 04/16/21 06:28 04/16/21 06:28 Abnormal lab findings: Abnormal Labs 04/14/21 04/14/21 04/15/21 17:42 17:42 04:13 WBC 1.9 L* MCH 27 L RDW 24.2 H Seg Neuts % (Manual) 38.0 L Lymphocytes % (Manual) 56.0 H Seg Neutrophils # Man 0.7 L Lymphocytes # (Manual) 1.1 L Sodium 133 L 132 L Chloride 87.8 L 90.2 L BUN 45 H 51 H Creatinine 5.4 H 5.8 H Glucose 115 H 102 H
--- NOTE | 2021-04-15 14:20 | Consultation ---
History of Present Illness Consult date: 04/15/21 Chief complaint: Right PTX - History of present illness History of present illness: 65 yo male s/p PET scan yesterday for f/u of his lung ca. This revealed a right PTX and pt was told to report to report to the ED for further evaluation. He denies any new CP or SOB. Past History Past Medical History: arthritis, COPD, ESRD, hypertension, other (Lung cancer, asthma, back problem) Medications and Allergies Allergies Allergy/AdvReac Type Severity Reaction Status Date / Time No Known Allergies Allergy Verified 04/14/21 17:38 Home Medications Medication Instructions Recorded Confirmed Last Taken Type Albuterol Sulfate [Proventil HFA] 2 puff INHALATION PRN PRN 08/30/13 04/14/21 12/11/16 History hydroCHLOROthiazide 25 mg PO DAILY 08/30/13 04/14/21 12/12/16 07:00 History [Hydrochlorothiazide] cloNIDine [Catapres] 0.2 mg PO QHS 05/29/14 04/14/21 09/26/16 History Fluticasone/Salmeterol [Advair 1 puff INHALATION BID 06/29/14 04/14/21 12/12/16 07:00 History Diskus 250-50 mcg] Acetaminophen/Codeine [Tylenol #3] 1 tab PO Q6H PRN #7 tab 01/26/17 04/14/21 Unknown Rx traMADoL [Ultram] 50 mg PO Q6HR PRN #20 tablet 07/05/18 04/14/21 Unknown Rx Furosemide [Lasix TAB] 20 mg PO BID #60 tablet 09/21/19 04/14/21 Unknown Rx Active Meds: Active Medications Acetaminophen (Acetaminophen 325 Mg Tab) 650 mg PO Q4H PRN PRN Reason: Pain MILD(1-3)/Fever >100.5/[place] Albuterol (Albuterol 2.5 Mg/3 Ml Nebu) 2.5 mg IH Q4HRT PRN PRN Reason: Shortness Of Breath Albuterol/Ipratropium (Ipratropium/Albuterol Sulfate 3 Ml Ampul.Neb) 1 ampul IH Q6HRT [facility] Last Admin: 04/15/21 13:27 Dose: Not Given Documented by: Arformoterol Tartrate (Arformoterol 15 Mcg/2 Ml Nebu) 15 mcg IH Q12HRT [facility] Last Admin: 04/15/21 13:02 Dose: 15 mcg Documented by: Budesonide (Budesonide 0.5 Mg/2 Ml Nebu) 0.5 mg IH Q12HRT [facility] Last Admin: 04/15/21 13:02 Dose: 0.5 mg Documented by: Clonidine HCl (Clonidine 0.2 Mg Tab) 0.2 mg PO QHS [facility] Famotidine (Famotidine 10 Mg Tab) 10 mg PO BID [facility] Furosemide (Furosemide 20 Mg Tab) 20 mg PO BID [facility] Heparin Sodium (Porcine) (Heparin 5,000 Unit/1 Ml Vial) 5,000 unit SUB-Q Q12HR [facility] Hydrochlorothiazide (Hydrochlorothiazide 25 Mg Tab) 25 mg PO DAILY [facility] Hydromorphone HCl (Hydromorphone 1 Mg/1 Ml Inj) 0.5 mg IV Q3H PRN PRN Reason: Pain , Severe (7-10) Sodium Chloride (Nacl 0.9%) 100 mls @ 999 mls/hr IV TIFFANIE PRN PRN Reason: Hypotension Ondansetron HCl (Ondansetron 4 Mg/2 Ml Inj) 4 mg IV Q8H PRN PRN Reason: Nausea And Vomiting Oxycodone/Acetaminophen (Oxycodone /Acetaminophen 5-325mg Tab) 1 tab PO Q6H PRN PRN Reason: Pain, Moderate (4-6) Sodium Chloride (Sodium Chloride 0.9% 10 Ml Flush Syringe) 10 ml IV BID [facility] Sodium Chloride (Sodium Chloride 0.9% 10 Ml Flush Syringe) 10 ml IV PRN PRN PRN Reason: LINE FLUSH Review of Systems All systems: negative (none) Exam Vital Signs Temp Pulse Resp BP Pulse Ox 98.0 F 89 20 121/67 89 04/14/21 17:28 04/14/21 17:28 04/14/21 17:28 04/14/21 17:28 04/14/21 17:28 - General physical appearance Positive: well developed, well nourished, no distress - Eyes Positive: PERRL, normal occular movement - ENT Positive: normal pinna, normal nares, normal mucosa, no hearing loss, no congestion - Neck Positive: no masses, no bruits, trachea midline, no venous distension - Respiratory Positive: normal expansion, normal respiratory effort, clear to auscultation - Cardiovascular Rhythm: regular Heart Sounds: Present: S1 & S2. Absent: rub, click - Extremities Extremities: no ischemia, pulses symmetrical, No edema - Breasts Breasts: normal, no mass, no skin changes - Abdomen Abdomen: Present: soft, bowel sounds normal. Absent: tender, distended Hernia: none - Genitourinary Male Genitourinary: normal Female Genitourinary: normal - Integumentary no rash, no growths, no abnormal pigmentation - Neurologic Neurologic: alert and oriented to time, place and person, motor strength and sensation are grossly intact - Musculoskeletal normal gait, normal posture - Psychiatric Psychiatric: appropriate mood/affect, intact judgment & insight Results - Labs 04/14/21 17:42 04/15/21 04:13 Abnormal lab results 04/14/21 04/14/21 04/15/21 Range/Units 17:42 17:42 04:13 WBC 1.9 L* (4.5-11.0) K/mm3 MCH 27 L (28-32) pg RDW 24.2 H (13.2-15.2) % Seg Neuts % (Manual) 38.0 L (40.0-70.0) % Lymphocytes % (Manual) 56.0 H (13.4-35.0) % Seg Neutrophils # Man 0.7 L (1.8-7.7) K/mm3 Lymphocytes # (Manual) 1.1 L (1.2-5.4) K/mm3 Sodium 133 L 132 L (137-145) mmol/L Chloride 87.8 L 90.2 L (98-107) mmol/L BUN 45 H 51 H (9-20) mg/dL Creatinine 5.4 H 5.8 H (0.8-1.3) mg/dL Glucose 115 H 102 H (75-100) mg/dL Diabetes panel 04/14/21 04/15/21 Range/Units 17:42 04:13 Sodium 133 L 132 L (137-145) mmol/L Potassium 4.2 4.2 (3.6-5.0) mmol/L Chloride 87.8 L 90.2 L (98-107) mmol/L Carbon Dioxide 29 29 (22-30) mmol/L BUN 45 H 51 H (9-20) mg/dL Creatinine 5.4 H 5.8 H (0.8-1.3) mg/dL Glucose 115 H 102 H (75-100) mg/dL Calcium 9.9 9.6 (8.4-10.2) mg/dL Calcium panel 04/14/21 04/15/21 Range/Units 17:42 04:13 Calcium 9.9 9.6 (8.4-10.2) mg/dL Pituitary panel 04/14/21 04/15/21 Range/Units 17:42 04:13 Sodium 133 L 132 L (137-145) mmol/L Potassium 4.2 4.2 (3.6-5.0) mmol/L Chloride 87.8 L 90.2 L (98-107) mmol/L Carbon Dioxide 29 29 (22-30) mmol/L BUN 45 H 51 H (9-20) mg/dL Creatinine 5.4 H 5.8 H (0.8-1.3) mg/dL Glucose 115 H 102 H (75-100) mg/dL Calcium 9.9 9.6 (8.4-10.2) mg/dL Adrenal panel 04/14/21 04/15/21 Range/Units 17:42 04:13 Sodium 133 L 132 L (137-145) mmol/L Potassium 4.2 4.2 (3.6-5.0) mmol/L Chloride 87.8 L 90.2 L (98-107) mmol/L Carbon Dioxide 29 29 (22-30) mmol/L BUN 45 H 51 H (9-20) mg/dL Creatinine 5.4 H 5.8 H (0.8-1.3) mg/dL Glucose 115 H 102 H (75-100) mg/dL Calcium 9.9 9.6 (8.4-10.2) mg/dL - Imaging Chest x-ray: report reviewed, image reviewed CT scan - chest: report reviewed Assessment and Plan - Patient Problems (1) Pneumothorax Current Visit: Yes Status: Acute Plan to address problem: 1) Observation since the pt is stable. 2) CXR in the am
[2021-04-15] MEDS: FAMOTIDINE 10 MG TAB PO SCH ×2 (14:36→21:40)
[2021-04-15] MEDS: HEPARIN 5,000 UNIT/1 ML VIAL SUB-Q SCH ×2 (14:36→21:41)
[2021-04-15] MEDS: hydroCHLOROthiazide 25 MG TAB PO SCH (14:40)
[2021-04-15] MEDS: FUROSEMIDE 20 MG TAB PO SCH ×2 (15:22→21:40)
--- NOTE | 2021-04-15 17:07 | Consultation ---
History of Present Illness - Reason for Consult Consult date: 04/15/21 end stage renal disease - History of Present Illness This is a 65-year-old man with end-stage renal disease on hemodialysis and lung cancer who was told to present to the emergency department by his oncologist due to concerns for pneumothorax noted on PET CT scan obtained yesterday. He was subsequently admitted for further workup and nephrology was consulted for ESRD management. Patient denies chest pain, shortness of breath and syncope. Past History Past Medical History: arthritis, COPD, ESRD, hypertension, other (Lung cancer, asthma, back problem) Medications and Allergies Allergies Allergy/AdvReac Type Severity Reaction Status Date / Time No Known Allergies Allergy Verified 04/14/21 17:38 Home Medications Medication Instructions Recorded Confirmed Last Taken Type Albuterol Sulfate [Proventil HFA] 2 puff INHALATION PRN PRN 08/30/13 04/14/21 12/11/16 History hydroCHLOROthiazide 25 mg PO DAILY 08/30/13 04/14/21 12/12/16 07:00 History [Hydrochlorothiazide] cloNIDine [Catapres] 0.2 mg PO QHS 05/29/14 04/14/21 09/26/16 History Fluticasone/Salmeterol [Advair 1 puff INHALATION BID 06/29/14 04/14/21 12/12/16 07:00 History Diskus 250-50 mcg] Acetaminophen/Codeine [Tylenol #3] 1 tab PO Q6H PRN #7 tab 01/26/17 04/14/21 Unknown Rx traMADoL [Ultram] 50 mg PO Q6HR PRN #20 tablet 07/05/18 04/14/21 Unknown Rx Furosemide [Lasix TAB] 20 mg PO BID #60 tablet 09/21/19 04/14/21 Unknown Rx Active Meds: Active Medications Acetaminophen (Acetaminophen 325 Mg Tab) 650 mg PO Q4H PRN PRN Reason: Pain MILD(1-3)/Fever >100.5/[place] Albuterol (Albuterol 2.5 Mg/3 Ml Nebu) 2.5 mg IH Q4HRT PRN PRN Reason: Shortness Of Breath Albuterol/Ipratropium (Ipratropium/Albuterol Sulfate 3 Ml Ampul.Neb) 1 ampul IH Q6HRT [facility] Last Admin: 04/15/21 13:27 Dose: Not Given Documented by: Arformoterol Tartrate (Arformoterol 15 Mcg/2 Ml Nebu) 15 mcg IH Q12HRT [facility] Last Admin: 04/15/21 13:02 Dose: 15 mcg Documented by: Budesonide (Budesonide 0.5 Mg/2 Ml Nebu) 0.5 mg IH Q12HRT [facility] Last Admin: 04/15/21 13:02 Dose: 0.5 mg Documented by: Clonidine HCl (Clonidine 0.2 Mg Tab) 0.2 mg PO QHS [facility] Famotidine (Famotidine 10 Mg Tab) 10 mg PO BID [facility] Last Admin: 04/15/21 14:36 Dose: 10 mg Documented by: Furosemide (Furosemide 20 Mg Tab) 20 mg PO BID [facility] Last Admin: 04/15/21 15:22 Dose: 20 mg Documented by: Heparin Sodium (Porcine) (Heparin 5,000 Unit/1 Ml Vial) 5,000 unit SUB-Q Q12HR [facility] Last Admin: 04/15/21 14:36 Dose: 5,000 unit Documented by: Hydrochlorothiazide (Hydrochlorothiazide 25 Mg Tab) 25 mg PO DAILY [facility] Last Admin: 04/15/21 14:40 Dose: Not Given Documented by: Hydromorphone HCl (Hydromorphone 1 Mg/1 Ml Inj) 0.5 mg IV Q3H PRN PRN Reason: Pain , Severe (7-10) Sodium Chloride (Nacl 0.9%) 100 mls @ 999 mls/hr IV TIFFANIE PRN PRN Reason: Hypotension Ondansetron HCl (Ondansetron 4 Mg/2 Ml Inj) 4 mg IV Q8H PRN PRN Reason: Nausea And Vomiting Oxycodone/Acetaminophen (Oxycodone /Acetaminophen 5-325mg Tab) 1 tab PO Q6H PRN PRN Reason: Pain, Moderate (4-6) Sodium Chloride (Sodium Chloride 0.9% 10 Ml Flush Syringe) 10 ml IV BID [facility] Last Admin: 04/15/21 14:40 Dose: 10 ml Documented by: Sodium Chloride (Sodium Chloride 0.9% 10 Ml Flush Syringe) 10 ml IV PRN PRN PRN Reason: LINE FLUSH Review of Systems Constitutional: no fever Ears, nose, mouth and throat: no nasal congestion, no nasal discharge Cardiovascular: no chest pain, no orthopnea Respiratory: no cough, no shortness of breath Gastrointestinal: no vomiting, no diarrhea Musculoskeletal: no muscle weakness, no muscle cramps Integumentary: no rash, no pruritis Neurological: no seizures, no syncope Endocrine: no cold intolerance Hematologic/Lymphatic: no easy bruising, no easy bleeding Exam - Vital Signs Vital signs: Vital Signs Temp Pulse Resp BP Pulse Ox 98.0 F 89 20 121/67 89 04/14/21 17:28 04/14/21 17:28 04/14/21 17:28 04/14/21 17:28 04/14/21 17:28 - Physical Exam Narrative exam: General: No acute distress HEENT: Oral mucosa moist Neck: Supple, no JVD Chest: Clear to auscultation bilaterally Heart: RRR, S1 and S2, no pericardial rub Abdomen: Soft, nontender, no renal bruit Extremity: No peripheral cyanosis, edema Neurological: Alert, awake, no asterixis Dermatology: No skin rash Psych: No agitation Musculoskeletal: No joint effusion Results - Lab Results 04/14/21 17:42 04/15/21 04:13 Most recent lab results Calcium 9.6 mg/dL (8.4-10.2) 04/15/21 04:13 Assessment and Plan Assessment - End-stage renal disease on hemodialysis - Hypertension - Pneumothorax - Hyperparathyroidism - Hyperphosphatemia Recommendations - Continue HD MWF - Monitor labs and volume status daily and assess need for additional dialysis session - Continue home antihypertensives - Hold antihypertensives on hemodialysis days for systolics less than 160 - Continue phosphorus binders - ESRD diet with 1.4 g/kg per day protein - Renally dose medication for creatinine clearance less than 15 cc/min - PTX management per pulmonology
[2021-04-15] MEDS: oxyCODONE /ACETAMINOPHEN 5-325MG TAB PO PRN (21:39)
[2021-04-15] MEDS: cloNIDine 0.2 MG TAB PO SCH (21:40)
[2021-04-16] MEDS: IPRATROPIUM/ALBUTEROL SULFATE 3 ML AMPUL.NEB IH SCH ×4 (03:46→22:33)
[2021-04-16 07:16] LABS: Calcium 9.6 mg/dL (8.4-10.2)
--- NOTE | 2021-04-16 08:41 | XRay Report ---
CHEST 1 VIEW INDICATION / CLINICAL INFORMATION: right PTX. COMPARISON: One day prior FINDINGS: SUPPORT DEVICES: Unchanged. HEART / MEDIASTINUM: No significant abnormality. LUNGS / PLEURA: Since the bullous disease, most notable the right lung apex, unchanged. No definite p neumothorax. No focal airspace consolidation. No pneumothorax. ADDITIONAL FINDINGS: No significant additional findings. IMPRESSION: 1. No significant change. Signer Name: Eddie Tim MD Signed: 04/16/2021 8:37 AM Workstation Name: [id number]
[2021-04-16 08:44] LABS: Hematocrit 34.9 % (35.5-45.6); Hemoglobin 11.1 gm/dl (11.8-15.2); Mean Corpuscular HGB Conc 32 % (32-34); Mean Corpuscular Volume 85 fl (84-94); Platelet Count 178 K/mm3 (140-440); Red Blood Count 4.12 M/mm3 (3.65-5.03)
[2021-04-16] MEDS: HEPARIN 5,000 UNIT/1 ML VIAL SUB-Q SCH ×2 (10:47→21:44)
[2021-04-16] MEDS: FAMOTIDINE 10 MG TAB PO SCH ×2 (10:47→21:43)
[2021-04-16] MEDS: FUROSEMIDE 20 MG TAB PO SCH ×2 (10:47→21:43)
[2021-04-16] MEDS: oxyCODONE /ACETAMINOPHEN 5-325MG TAB PO PRN ×2 (10:47→21:47)
[2021-04-16] MEDS: hydroCHLOROthiazide 25 MG TAB PO SCH (10:47)
[2021-04-16 11:22] LABS: Total Cells Counted 100
[2021-04-16 11:24] LABS: Anisocytosis 2+; Poikilocytosis 1+
[2021-04-16 11:25] LABS: Ovalocytes Rare; Schistocytes Rare
--- NOTE | 2021-04-16 13:42 | Progress Note ---
Assessment and Plan - Patient Problems (1) Pneumothorax Current Visit: Yes Status: Acute Plan to address problem: 1) Pt can probably be discharged with close f/u from my perspective. I would obtain a CXR in the am if he is still in house. Subjective Date of service: 04/16/21 Patient Reports: Positive: no new complaints (Denies SOB.) Narrative: Pt is now on the floor. Objective Vital Signs - 12hr 04/16/21 04/16/21 04/16/21 03:46 07:34 08:30 Temperature 98.0 F 98.2 F Pulse Rate 96 H 95 H 96 H Respiratory 18 18 Rate Blood Pressure 116/77 121/71 O2 Sat by Pulse 95 98 100 Oximetry - Respiratory normal expansion, normal respiratory effort, clear to percussion, clear to auscultation - Abdomen [id number] 4, [id number]_[id number] 6, [id number]_[id number] 8 Hernia: none - Labs 04/16/21 06:28 04/16/21 06:28 Diabetes panel 04/16/21 Range/Units 06:28 Sodium 134 L (137-145) mmol/L Potassium 4.1 (3.6-5.0) mmol/L Chloride 93.6 L (98-107) mmol/L Carbon Dioxide 28 (22-30) mmol/L BUN 32 H (9-20) mg/dL Creatinine 4.7 H (0.8-1.3) mg/dL Glucose 98 (75-100) mg/dL Calcium 9.6 (8.4-10.2) mg/dL AST 21 (5-40) units/L ALT 14 (7-56) units/L Alkaline Phosphatase 127 (35-129) units/L Total Protein 7.7 (6.3-8.2) g/dL Albumin 4.0 (3.9-5) g/dL Calcium panel 04/16/21 Range/Units 06:28 Calcium 9.6 (8.4-10.2) mg/dL Albumin 4.0 (3.9-5) g/dL Pituitary panel 04/16/21 Range/Units 06:28 Sodium 134 L (137-145) mmol/L Potassium 4.1 (3.6-5.0) mmol/L Chloride 93.6 L (98-107) mmol/L Carbon Dioxide 28 (22-30) mmol/L BUN 32 H (9-20) mg/dL Creatinine 4.7 H (0.8-1.3) mg/dL Glucose 98 (75-100) mg/dL Calcium 9.6 (8.4-10.2) mg/dL Adrenal panel 04/16/21 Range/Units 06:28 Sodium 134 L (137-145) mmol/L Potassium 4.1 (3.6-5.0) mmol/L Chloride 93.6 L (98-107) mmol/L Carbon Dioxide 28 (22-30) mmol/L BUN 32 H (9-20) mg/dL Creatinine 4.7 H (0.8-1.3) mg/dL Glucose 98 (75-100) mg/dL Calcium 9.6 (8.4-10.2) mg/dL Total Bilirubin 0.30 (0.1-1.2) mg/dL AST 21 (5-40) units/L ALT 14 (7-56) units/L Alkaline Phosphatase 127 (35-129) units/L Total Protein 7.7 (6.3-8.2) g/dL Albumin 4.0 (3.9-5) g/dL - Imaging Chest x-ray: report reviewed
[2021-04-16] MEDS: BUDESONIDE 0.5 MG/2 ML NEBU IH SCH ×2 (13:56→22:33)
[2021-04-16] MEDS: ARFORMOTEROL 15 MCG/2 ML NEBU IH SCH ×2 (13:57→22:33)
--- NOTE | 2021-04-16 14:25 | Progress Note ---
Assessment and Plan Assessment and plan: --Leukopenia; 1.4K Current Visit: Yes Status: Acute Cancer patient, on chemotherapy, leukopenia Give subcu Neupogen one dose and closely monitor Neutropenia precautions --Bullous emphysema with collapse Current Visit: Yes Status: Acute Patient is on supplemental oxygen supportive care Patient uses 2 L of nasal cannula oxygen as needed at home repeat chest x-ray and CT scan of the chest this morning Surgery following and pulmonary consulted --Right pneumothorax Current Visit: Yes Status: Acute Currently patient has no symptoms , no shortness of breath or chest pain Dr. Ramirez surgeon and pulmonary critical Dr. Reddy evaluated the patient no intervention needed, advised closely monitor overnight Repeat chest x-ray 04/16/2021; no significant change, bullous disease most notable on the right lung apex unchanged no definite pneumothorax no focal airspace consolidation --History of lung cancer; Current Visit: Yes Status: Chronic Patient follows with his oncologist upon discharge --ESRD (end stage renal disease) Current Visit: Yes Status: Acute Hemodialysis per schedule, nephrology evaluated the patient HD per schedule -- History of COPD (chronic obstructive pulmonary disease) Current Visit: Yes Status: Acute With bullous emphysema, home oxygen dependent 2 L nasal cannula DuoNeb by nebulizer steroids supportive care -- Hypertension/moderate control Current Visit: Yes Status: Acute Continue current antihypertensives , clonidine and hydrochlorothiazide As needed hydralazine, closely monitor blood pressures --DVT prophylaxis Current Visit: Yes Status: Acute Heparin 5000 units subcu renal dose. --full CODE STATUS We will closely monitor the patient and adjust management as needed Surgery and pulmonary critical evaluation noted and appreciated Plan of care reviewed with the patient and his nurse I also discussed with stain remover [] Patient is stable to be transferred out of [facility] to telemetry floor 04/16/2021; Follow-up chest x-ray no evidence of pneumothorax Patient has severe leukopenia 1.4K Lung cancer patient on chemotherapy Will managed with filgrastim 300 micrograms subcu now And daily for 3 days Neutropenia precautions History Interval history: I have seen and examined the patient at the bedside Patient's chart and medications reviewed Repeat chest x-ray no pneumothorax Hospitalist Physical - Constitutional Vitals: Temp Pulse Resp BP Pulse Ox 98.2 F 96 H 18 121/71 100 04/16/21 07:34 04/16/21 08:30 04/16/21 07:34 04/16/21 07:34 04/16/21 08:30 General appearance: Present: no acute distress, well-nourished - EENT Eyes: Present: PERRL, EOM intact - Neck Neck: Present: supple, normal ROM - Respiratory Respiratory effort: normal Respiratory: bilateral: diminished, rhonchi, negative: rales, wheezing - Cardiovascular Rhythm: regular Heart Sounds: Present: S1 & S2 - Extremities Extremities: no ischemia, No edema - Abdominal General gastrointestinal: soft, non-tender, non-distended, normal bowel sounds - Integumentary Integumentary: Present: clear, warm - Psychiatric Psychiatric: appropriate mood/affect, cooperative - Neurologic Neurologic: CNII-XII intact, moves all extremities Results - Labs CBC & Chem 7: 04/16/21 06:28 04/16/21 06:28 Labs: Laboratory Last Values WBC 1.4 K/mm3 (4.5-11.0) L* 04/16/21 06:28 RBC 4.12 M/mm3 (3.65-5.03) 04/16/21 06:28 Hgb 11.1 gm/dl (11.8-15.2) L 04/16/21 06:28 Hct 34.9 % (35.5-45.6) L 04/16/21 06:28 MCV 85 fl (84-94) 04/16/21 06:28 MCH 27 pg (28-32) L 04/16/21 06:28 MCHC 32 % (32-34) 04/16/21 06:28 RDW 24.0 % (13.2-15.2) H 04/16/21 06:28 Plt Count 178 K/mm3 (140-440) 04/16/21 06:28 Add Manual Diff Complete 04/16/21 06:28 Total Counted 100 04/16/21 06:28 Seg Neuts % (Manual) 18.0 % (40.0-70.0) L 04/16/21 06:28 Lymphocytes % (Manual) 64.0 % (13.4-35.0) H 04/16/21 06:28 Monocytes % (Manual) 17.0 % (0.0-7.3) H 04/16/21 06:28 Eosinophils % (Manual) 1.0 % (0.0-4.3) 04/16/21 06:28 Basophils % (Manual) 1.0 % (0.0-1.8) 04/14/21 17:42 Nucleated RBC % Not Reportable 04/16/21 06:28 Seg Neutrophils # Man 0.3 K/mm3 (1.8-7.7) L 04/16/21 06:28 Band Neutrophils # 0.0 K/mm3 04/16/21 06:28 Lymphocytes # (Manual) 0.9 K/mm3 (1.2-5.4) L 04/16/21 06:28 Abs React Lymphs (Man) 0.0 K/mm3 04/16/21 06:28 Monocytes # (Manual) 0.2 K/mm3 (0.0-0.8) 04/16/21 06:28 Eosinophils # (Manual) 0.0 K/mm3 (0.0-0.4) 04/16/21 06:28 Basophils # (Manual) 0.0 K/mm3 (0.0-0.1) 04/16/21 06:28 Metamyelocytes # 0.0 K/mm3 04/16/21 06:28 Myelocytes # 0.0 K/mm3 04/16/21 06:28 Promyelocytes # 0.0 K/mm3 04/16/21 06:28 Blast Cells # 0.0 K/mm3 04/16/21 06:28 WBC Morphology Not Reportable 04/16/21 06:28 WBC Morphology TNR 04/16/21 06:28 Hypersegmented Neuts Not Reportable 04/16/21 06:28 Hyposegmented Neuts Not Reportable 04/16/21 06:28 Hypogranular Neuts Not Reportable 04/16/21 06:28 Smudge Cells Not Reportable 04/16/21 06:28 Toxic Granulation Not Reportable 04/16/21 06:28 Toxic Vacuolation Not Reportable 04/16/21 06:28 Dohle Bodies Not Reportable 04/16/21 06:28 Pelger-Huet Anomaly Not Reportable 04/16/21 06:28 Greg Rods Not Reportable 04/16/21 06:28 Platelet Estimate Not Reportable 04/16/21 06:28 Clumped Platelets Not Reportable 04/16/21 06:28 Plt Clumps, EDTA Not Reportable 04/16/21 06:28 Large Platelets Not Reportable 04/16/21 06:28 Giant Platelets Not Reportable 04/16/21 06:28 Platelet Satelliting Not Reportable 04/16/21 06:28 Plt Morphology Comment Not Reportable 04/16/21 06:28 RBC Morphology Not Reportable 04/16/21 06:28 Dimorphic RBCs Not Reportable 04/16/21 06:28 Polychromasia Not Reportable 04/16/21 06:28 Hypochromasia Not Reportable 04/16/21 06:28 Poikilocytosis 1+ 04/16/21 06:28 Anisocytosis 2+ 04/16/21 06:28 Microcytosis Not Reportable 04/16/21 06:28 Macrocytosis Not Reportable 04/16/21 06:28 Spherocytes Not Reportable 04/16/21 06:28 Pappenheimer Bodies Not Reportable 04/16/21 06:28 Sickle Cells Not Reportable 04/16/21 06:28 Target Cells Not Reportable 04/16/21 06:28 Tear Drop Cells Not Reportable 04/16/21 06:28 Ovalocytes Rare 04/16/21 06:28 Helmet Cells Not Reportable 04/16/21 06:28 Oliver-Lamoure Bodies Not Reportable 04/16/21 06:28 [place]lin Rings Not Reportable 04/16/21 06:28 Isabelle Cells Not Reportable 04/16/21 06:28 Bite Cells Not Reportable 04/16/21 06:28 Crenated Cell Not Reportable 04/16/21 06:28 Elliptocytes Not Reportable 04/16/21 06:28 Acanthocytes (Spur) Not Reportable 04/16/21 06:28 Rouleaux Not Reportable 04/16/21 06:28 Hemoglobin C Crystals Not Reportable 04/16/21 06:28 Schistocytes Rare 04/16/21 06:28 Malaria parasites Not Reportable 04/16/21 06:28 Mio Bodies Not Reportable 04/16/21 06:28 Hem Pathologist Commnt No 04/16/21 06:28 Sodium 134 mmol/L (137-145) L 04/16/21 06:28 Potassium 4.1 mmol/L (3.6-5.0) 04/16/21 06:28 Chloride 93.6 mmol/L (98-107) L 04/16/21 06:28 Carbon Dioxide 28 mmol/L (22-30) 04/16/21 06:28 Anion Gap 17 mmol/L 04/16/21 06:28 BUN 32 mg/dL (9-20) H 04/16/21 06:28 Creatinine 4.7 mg/dL (0.8-1.3) H 04/16/21 06:28 Estimated GFR 15 ml/min 04/16/21 06:28 BUN/Creatinine Ratio 7 % 04/16/21 06:28 Glucose 98 mg/dL (75-100) 04/16/21 06:28 Calcium 9.6 mg/dL (8.4-10.2) 04/16/21 06:28 Total Bilirubin 0.30 mg/dL (0.1-1.2) 04/16/21 06:28 AST 21 units/L (5-40) 04/16/21 06:28 ALT 14 units/L (7-56) 04/16/21 06:28 Alkaline Phosphatase 127 units/L (35-129) 04/16/21 06:28 Total Protein 7.7 g/dL (6.3-8.2) 04/16/21 06:28 Albumin 4.0 g/dL (3.9-5) 04/16/21 06:28 Albumin/Globulin Ratio 1.1 % 04/16/21 06:28 Hepatitis A IgM Ab Non-reactive (NonReactive) 04/15/21 09:30 Hep Bs Antigen Nonreactive (Negative) 04/15/21 09:30 Hep B Core IgM Ab Non-reactive (NonReactive) 04/15/21 09:30 Hepatitis C Antibody Non-reactive (NonReactive) 04/15/21 09:30 [place]/IV: Voiding Method Urinal Active Medications - Current Medications Current Medications: Generic Name Dose Route Start Last Admin Trade Name Freq PRN Reason Stop Dose Admin Acetaminophen 650 mg 04/14/21 22:01 Acetaminophen 325 Mg Tab PO Q4H PRN Pain MILD(1-3)/Fever >100.5/[place] Albuterol 2.5 mg 04/14/21 22:01 Albuterol 2.5 Mg/3 Ml Nebu IH Q4HRT PRN Shortness Of Breath Albuterol/Ipratropium 1 ampul 04/15/21 02:00 04/16/21 13:57 Ipratropium/Albuterol Sulfate 3 Ml Ampul.Neb IH 1 ampul Q6HRT DEJA Administration Arformoterol Tartrate 15 mcg 04/15/21 08:00 04/16/21 13:57 Arformoterol 15 Mcg/2 Ml Nebu IH 15 mcg Q12HRT DEJA Administration Budesonide 0.5 mg 04/15/21 08:00 04/16/21 13:56 Budesonide 0.5 Mg/2 Ml Nebu IH 0.5 mg Q12HRT DEJA Administration Clonidine HCl 0.2 mg 04/15/21 22:00 04/15/21 21:40 Clonidine 0.2 Mg Tab PO 0.2 mg QHS DEJA Administration Famotidine 10 mg 04/15/21 10:00 04/16/21 10:47 Famotidine 10 Mg Tab PO 10 mg BID DEJA Administration Furosemide 20 mg 04/15/21 10:00 04/16/21 10:47 Furosemide 20 Mg Tab PO 20 mg BID DEJA Administration Heparin Sodium (Porcine) 5,000 unit 04/15/21 10:00 04/16/21 10:47 Heparin 5,000 Unit/1 Ml Vial SUB-Q 5,000 unit Q12HR DEJA Administration Hydrochlorothiazide 25 mg 04/15/21 10:00 04/16/21 10:47 Hydrochlorothiazide 25 Mg Tab PO 25 mg DAILY DEJA Administration Hydromorphone HCl 0.5 mg 04/14/21 22:01 Hydromorphone 1 Mg/1 Ml Inj IV Q3H PRN Pain , Severe (7-10) Sodium Chloride 100 mls @ 999 mls/hr 04/15/21 07:50 Nacl 0.9% IV TIFFANIE PRN Hypotension Ondansetron HCl 4 mg 04/14/21 22:01 Ondansetron 4 Mg/2 Ml Inj IV Q8H PRN Nausea And Vomiting Oxycodone/Acetaminophen 1 tab 04/14/21 22:01 04/16/21 10:47 Oxycodone /Acetaminophen 5-325mg Tab PO 1 tab Q6H PRN Administration Pain, Moderate (4-6) Sodium Chloride 10 ml 04/15/21 10:00 04/16/21 10:47 Sodium Chloride 0.9% 10 Ml Flush Syringe IV 10 ml BID DEJA Administration Sodium Chloride 10 ml 04/14/21 22:01 Sodium Chloride 0.9% 10 Ml Flush Syringe IV PRN PRN LINE FLUSH Tbo-Filgrastim 300 mcg 04/16/21 14:19 Tbo-Filgrastim 300 Mcg/0.5 Ml SUB-Q 04/16/21 14:20 ONCE ONE Nutrition/Malnutrition Assess - Dietary Evaluation Nutrition/Malnutrition Findings: Nutrition Notes Start: 04/15/21 13:12 Freq: Status: Active Protocol: Document 04/15/21 13:12 [facility] (Rec: 04/15/21 13:20 [facility] [id number]) Nutrition Notes Need for Assessment generated from: housecleaner floor,MST Initial or Follow up Brief Note Current Diagnosis CKD (stage V CKD),COPD, Hypertension Other Pertinent Diagnosis LLL pneu, severe bullous emphysema, r/o (R) pneumothorax Current Diet Renal + Nepro daily Labs/Tests Na 132 BUN 51 Cr 5.8 Pertinent Medications Lasix Height 6 ft Weight 73.7 kg [place] Body Weight (kg) 80.90 BMI 22.0 Weight Status Appropriate Subjective/Other Information Pt screened for malnutrition risk. Pt not in room at time of visit (11:26); he is at HD. Pt with hx of lung CA. Burn Absent Trauma Absent Is patient on ventilator? No Is Patient Ambulatory and/or Out of Bed Yes REE-([facility]-ambulatory/OOB) [ 2040.000 [id number]] Calculation Used for Recommendations [facility] Additional Notes Pro needs >1.2g/kg: >88g/day Fluid needs 1-1.5L/day Nutrition Intervention Follow-Up By: 04/19/21 Additional Comments F/U: MST assessment, intakes ( meals/ONS)
[2021-04-16] MEDS ORDERED: TBO-FILGRASTIM 300 MCG/0.5 ML SUB-Q NR (15:00)
--- NOTE | 2021-04-16 16:56 | Progress Note ---
Assessment and Plan 65-year-old male with history of lung cancer and end-stage renal disease on hemodialysis was brought to the emergency room because of possible pneumothorax. Patient had a routine PET scan done today. That was ordered by his oncologist. He was called by home after the PET scan told he could return to the emergency department because he had a possible pneumothorax seen on PET scan. Patient states he feels at his baseline. States with his oxygen he is at his baseline level of breathing. Denies any additional cough shortness of breath. Denies any fevers chills. Patient has not missed any appointments with his dialysis. Patient has a port for his chemotherapy as well as a permacatheter for dialysis. Neither of the have been placed in the last [address] scan of the chest in the emergency room showed: 1. Moderately large right pneumothorax. 2. Severe bullous emphysema. 3. Mild bronchiectasis and peribronchial thickening in both lower lobes. There is mild associated pneumonia, predominantly in the left lower lobe. Past Medical History: arthritis, COPD, ESRD, hypertension, other (Lung cancer, asthma, back problem. Patient awake, Resting on 2 litres O2. Patient denies chest pain or shortness of breath. Coughing up yellow sputum. Patient diagnosed with stage !V lung cancer. Patient received chemotherapy. Patient has heavy history of smoking. Smoked 1 pack a day x 45 years. Stopped smoking 3 years ago. Denies alcohol or drug abuse. 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 Has children 1. Patient afebrile. Has Leukopenia. Blood pressure 108/67. Pulse 97. CT of chest with out contrast 04/14/21 reported Moderately large right pne umothorax. Severe bullous emphysema. Mild bronchiectasis and peribronchial thickening in both lower lobes. There is mild associated pneumonia, predominantly in the left lower lobe. Chest xray done 04/16/21 reported Since the bullous disease, most notable the right lung apex, unchanged. No definite pneumothorax. No focal airspace consolidation. No pneumothorax. Patient denies any chest pain or shortness of breath. Patient presently on Brovanna/Budesonide, Albuterol/atrovent aerosol treatments, S/C heparin and famotidine. I spent critical care time of 35 minutes obtaining history, review the chart, examine the patient, talking to respiratory therapy and nursing staff and work out plan of treatment in this patient with multiple medical problems. - Patient Problems (1) Bullous emphysema with collapse Current Visit: Yes Status: Acute Plan to address problem: Continue bronchodilators. Continue watch bullous disease with repeat chest xray and CAT scan of chest. (2) COPD (chronic obstructive pulmonary disease) Current Visit: Yes Status: Acute Qualifiers: Qualified Code(s): J43.0 - Unilateral pulmonary emphysema [MacLeod's syndrome] Plan to address problem: O2 2 litres via nasal canula. Brovanna/Budesonide aerosol treatments.q 12 hours. Albuterol/atrovent aerosol treatments as needed. Continue S/C Heparin Continue famotidine. (3) ESRD (end stage renal disease) Current Visit: Yes Status: Acute Plan to address problem: Management as per nephrology. (4) Hypertension Current Visit: Yes Status: Acute Plan to address problem: Management as per primary care. (5) Lung cancer Current Visit: Yes Status: Acute Plan to address problem: Stage 1V. Recommend to consult Oncology. Subjective Date of service: 04/16/21 Interval history: 65-year-old male with history of lung cancer and end-stage renal disease on hemodialysis was brought to the emergency room because of possible pneumothorax. Patient had a routine PET scan done today. That was ordered by his oncologist. He was called by home after the PET scan told he could return to the emergency department because he had a possible pneumothorax seen on PET scan. Patient states he feels at his baseline. States with his oxygen he is at his baseline level of breathing. Denies any additional cough shortness of breath. Denies any fevers chills. Patient has not missed any appointments with his dialysis. Patient has a port for his chemotherapy as well as a permacatheter for dialysis. Neither of the have been placed in the last [address] scan of the chest in the emergency room showed: 1. Moderately large right pneumothorax. 2. Severe bullous emphysema. 3. Mild bronchiectasis and peribronchial thickening in both lower lobes. There is mild associated pneumonia, predominantly in the left lower lobe. Past Medical History: arthritis, COPD, ESRD, hypertension, other (Lung cancer, a sthma, back problem. Patient awake, Resting on 2 litres O2. Patient denies chest pain or shortness of breath. Coughing up yellow sputum. Patient diagnosed with stage !V lung cancer. Patient received chemotherapy. Patient has heavy history of smoking. Smoked 1 pack a day x 45 years. Stopped smoking 3 years ago. Denies alcohol or drug abuse. 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 Has children 1. Patient afebrile. Has Leukopenia. Blood pressure 108/67. Pulse 97. CT of chest with out contrast 04/14/21 reported Moderately large right pneumothorax. Severe bullous emphysema. Mild bronchiectasis and peribronchial thickening in both lower lobes. There is mild associated pneumonia, predominantly in the left lower lobe. Chest xray done 04/16/21 reported Since the bullous disease, most notable the right lung apex, unchanged. No definite pneumothorax. No focal airspace consolidation. No pneumothorax. Patient denies any chest pain or shortness of breath. Patient presently on Brovanna/Budesonide, Albuterol/atrovent aerosol treatments, S/C heparin and famotidine. Objective Vital Signs - 12hr 04/16/21 04/16/21 04/16/21 07:34 08:30 11:30 Temperature 98.2 F 98.4 F Pulse Rate 95 H 96 H 94 H Respiratory 18 18 Rate Blood Pressure 121/71 114/75 O2 Sat by Pulse 98 100 96 Oximetry Constitutional: no acute distress, alert Eyes: non-icteric ENT: oropharynx moist Neck: supple, no lymphadenopathy Ascultation: Bilateral: rhonchi (on left side.), other (Prolonged expiratory phase.) Cardiovascular: regular rate and rhythm Gastrointestinal: normoactive bowel sounds, soft, non-tender Integumentary: normal Extremities: no cyanosis, no edema Neurologic: normal mental status, non-focal exam, pupils equal and round Psychiatric: mood appropriate, affect normal CBC and BMP: 04/16/21 06:28 04/16/21 06:28 Abnormal lab findings: Abnormal Labs 04/14/21 04/14/21 04/15/21 17:42 17:42 04:13 WBC 1.9 L* Hgb Hct MCH 27 L RDW 24.2 H Seg Neuts % (Manual) 38.0 L Lymphocytes % (Manual) 56.0 H Monocytes % (Manual) Seg Neutrophils # Man 0.7 L Lymphocytes # (Manual) 1.1 L Sodium 133 L 132 L Chloride 87.8 L 90.2 L BUN 45 H 51 H Creatinine 5.4 H 5.8 H Glucose 115 H 102 H 04/16/21 04/16/21 06:28 06:28 WBC 1.4 L* Hgb 11.1 L Hct 34.9 L MCH 27 L RDW 24.0 H Seg Neuts % (Manual) 18.0 L Lymphocytes % (Manual) 64.0 H Monocytes % (Manual) 17.0 H Seg Neutrophils # Man 0.3 L Lymphocytes # (Manual) 0.9 L Sodium 134 L Chloride 93.6 L BUN 32 H Creatinine 4.7 H Glucose Chest x-ray: report reviewed, image reviewed CT scan - chest: report reviewed, image reviewed Additional Studies: CT OF THE CHEST WITHOUT CONTRAST 04/14/21 INDICATION / CLINICAL INFORMATION: Right basilar lucency on CXR. Pneumothorax versus bleb. TECHNIQUE: All CT scans at this location are performed using CT dose reduction for ALARA by means of automated exposure control. COMPARISON: CXR earlier today. FINDINGS: There is a moderately large right pneumothorax anteriorly and medially. No left pneumothorax is seen. There are extensive bullous changes in both lungs, especially the apices. There are patchy parenchymal opacities in both lower lobes posteromedially, predominantly related to peribronchial thickening and bronchiectasis. There is more focal mild patchy consolidation in the left lower lobe. No pleural effusion. No adenopathy. The heart size is normal. There is marked coronary artery calcification. There are mild atherosclerotic calcifications involving aorta without acute abnormality. The visualized upper abdomen is unremarkable. No acute osseous abnormality is seen. IMPRESSION: 1. Moderately large right pneumothorax. 2. Severe bullous emphysema. 3. Mild bronchiectasis and peribronchial thickening in both lower lobes. There is mild associated pneumonia, predominantly in the left lower lobe. CHEST 1 VIEW 04/16/21 INDICATION / CLINICAL INFORMATION: right PTX. COMPARISON: One day prior FINDINGS: SUPPORT DEVICES: Unchanged. HEART / MEDIASTINUM: No significant abnormality. LUNGS / PLEURA: Since the bullous disease, most notable the right lung apex, unchanged. No definite pneumothorax. No focal airspace consolidation. No pneumothorax. ADDITIONAL FINDINGS: No significant additional findings. IMPRESSION: 1. No significant change.
--- NOTE | 2021-04-16 18:42 | Progress Note ---
Assessment and Plan Assessment - End-stage renal disease on hemodialysis - Hypertension - Pneumothorax - Hyperparathyroidism - Hyperphosphatemia Recommendations - Continue HD MWF - Monitor labs and volume status daily and assess need for additional dialysis session - Continue home antihypertensives - Hold antihypertensives on hemodialysis days for systolics less than 160 - Continue phosphorus binders - ESRD diet with 1.4 g/kg per day protein - Renally dose medication for creatinine clearance less than 15 cc/min - PTX management per pulmonology Subjective Date of service: 04/16/21 Principal diagnosis: Pneumothorax Interval history: Patient was seen for his renal issues Nursing, interdisciplinary and consult notes were reviewed Vitals, input and output, medications and labs were reviewed On room air Objective - Exam Narrative Exam: General: No acute distress HEENT: Oral mucosa moist Neck: Supple, no JVD Chest: Clear to auscultation bilaterally Heart: RRR, S1 and S2, no pericardial rub Abdomen: Soft, nontender, no renal bruit Extremity: No peripheral cyanosis, edema Neurological: Alert, awake, no asterixis Dermatology: No skin rash Psych: No agitation Musculoskeletal: No joint effusion - Vital Signs Vital signs: Vital Signs - 12hr 04/16/21 04/16/21 04/16/21 07:34 08:30 11:30 Temperature 98.2 F 98.4 F Pulse Rate 95 H 96 H 94 H Respiratory 18 18 Rate Blood Pressure 121/71 114/75 O2 Sat by Pulse 98 100 96 Oximetry - Lab 04/16/21 06:28 04/16/21 06:28 Most recent lab results Calcium 9.6 mg/dL (8.4-10.2) 04/16/21 06:28 Medications & Allergies - Medications Allergies/Adverse Reactions: Allergies No Known Allergies Allergy (Verified 04/14/21 17:38) Home Medications: Home Medications Medication Instructions Recorded Confirmed Last Taken Type Albuterol Sulfate [Proventil HFA] 2 puff INHALATION PRN PRN 08/30/13 04/14/21 12/11/16 History hydroCHLOROthiazide 25 mg PO DAILY 08/30/13 04/14/21 12/12/16 07:00 History [Hydrochlorothiazide] cloNIDine [Catapres] 0.2 mg PO QHS 05/29/14 04/14/21 09/26/16 History Fluticasone/Salmeterol [Advair 1 puff INHALATION BID 06/29/14 04/14/21 12/12/16 07:00 History Diskus 250-50 mcg] Acetaminophen/Codeine [Tylenol #3] 1 tab PO Q6H PRN #7 tab 01/26/17 04/14/21 Unknown Rx traMADoL [Ultram] 50 mg PO Q6HR PRN #20 tablet 07/05/18 04/14/21 Unknown Rx Furosemide [Lasix TAB] 20 mg PO BID #60 tablet 09/21/19 04/14/21 Unknown Rx Active Medications: Generic Name Dose Route Start Last Admin Trade Name Freq PRN Reason Stop Dose Admin Acetaminophen 650 mg 04/14/21 22:01 Acetaminophen 325 Mg Tab PO Q4H PRN Pain MILD(1-3)/Fever >100.5/[place] Albuterol 2.5 mg 04/14/21 22:01 Albuterol 2.5 Mg/3 Ml Nebu IH Q4HRT PRN Shortness Of Breath Albuterol/Ipratropium 1 ampul 04/15/21 02:00 04/16/21 13:57 Ipratropium/Albuterol Sulfate 3 Ml Ampul.Neb IH 1 ampul Q6HRT DEJA Administration Arformoterol Tartrate 15 mcg 04/15/21 08:00 04/16/21 13:57 Arformoterol 15 Mcg/2 Ml Nebu IH 15 mcg Q12HRT DEJA Administration Budesonide 0.5 mg 04/15/21 08:00 04/16/21 13:56 Budesonide 0.5 Mg/2 Ml Nebu IH 0.5 mg Q12HRT DEJA Administration Clonidine HCl 0.2 mg 04/15/21 22:00 04/15/21 21:40 Clonidine 0.2 Mg Tab PO 0.2 mg QHS DEJA Administration Famotidine 10 mg 04/15/21 10:00 04/16/21 10:47 Famotidine 10 Mg Tab PO 10 mg BID DEJA Administration Furosemide 20 mg 04/15/21 10:00 04/16/21 10:47 Furosemide 20 Mg Tab PO 20 mg BID DEJA Administration Heparin Sodium (Porcine) 5,000 unit 04/15/21 10:00 04/16/21 10:47 Heparin 5,000 Unit/1 Ml Vial SUB-Q 5,000 unit Q12HR DEJA Administration Hydrochlorothiazide 25 mg 04/15/21 10:00 04/16/21 10:47 Hydrochlorothiazide 25 Mg Tab PO 25 mg DAILY DEJA Administration Hydromorphone HCl 0.5 mg 04/14/21 22:01 Hydromorphone 1 Mg/1 Ml Inj IV Q3H PRN Pain , Severe (7-10) Sodium Chloride 100 mls @ 999 mls/hr 04/15/21 07:50 Nacl 0.9% IV TIFFANIE PRN Hypotension Ondansetron HCl 4 mg 04/14/21 22:01 Ondansetron 4 Mg/2 Ml Inj IV Q8H PRN Nausea And Vomiting Oxycodone/Acetaminophen 1 tab 04/14/21 22:01 04/16/21 10:47 Oxycodone /Acetaminophen 5-325mg Tab PO 1 tab Q6H PRN Administration Pain, Moderate (4-6) Sodium Chloride 10 ml 04/15/21 10:00 04/16/21 10:47 Sodium Chloride 0.9% 10 Ml Flush Syringe IV 10 ml BID DEJA Administration Sodium Chloride 10 ml 04/14/21 22:01 Sodium Chloride 0.9% 10 Ml Flush Syringe IV PRN PRN LINE FLUSH Tbo-Filgrastim 300 mcg 04/16/21 15:00 Tbo-Filgrastim 300 Mcg/0.5 Ml SUB-Q 04/16/21 19:00 ONCE@1500 NR
--- NOTE | 2021-04-16 19:43 | Progress Note ---
Assessment and Plan Assessment and plan: --?Right pneumothorax Current Visit: Yes Status: Acute Currently patient has no symptoms , no shortness of breath or chest pain Dr. Ramirez surgeon and pulmonary critical Dr. Reddy evaluated the patient no intervention needed, advised closely monitor overnight Multiple chest x-rays did not reveal pneumothorax And patient has no symptoms, pulmonary and surgery evaluated daily Cleared for discharge Repeat chest x-ray 04/16/2021; no significant change, bullous disease most notable on the right lung apex unchanged no definite pneumothorax no focal airspace consolidation Chest x-ray; 04/17/2021; stable small right apical pneumothorax Patient is asymptomatic --Leukopenia; 1.4K Current Visit: Yes Status: Acute Cancer patient, on chemotherapy, leukopenia Give subcu Neupogen one dose and closely monitor Neutropenia precautions --Bullous emphysema with collapse Current Visit: Yes Status: Acute Patient is on supplemental oxygen supportive care Patient uses 2 L of nasal cannula oxygen as needed at home repeat chest x-ray and CT scan of the chest this morning Surgery following and pulmonary consulted --History of lung cancer; Current Visit: Yes Status: Chronic Patient follows with his oncologist upon discharge --ESRD (end stage renal disease) Current Visit: Yes Status: Acute Hemodialysis per schedule, nephrology evaluated the patient HD per schedule -- History of COPD (chronic obstructive pulmonary disease) Current Visit: Yes Status: Acute With bullous emphysema, home oxygen dependent 2 L nasal cannula DuoNeb by nebulizer steroids supportive care -- Hypertension/moderate control Current Visit: Yes Status: Acute Continue current antihypertensives , clonidine and hydrochlorothiazide As needed hydralazine, closely monitor blood pressures --DVT prophylaxis Current Visit: Yes Status: Acute Heparin 5000 units subcu renal dose. 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 However patient is leukopenic with WBC of 1.4K Received 1 filgrastim yesterday, will recommend 1 more today Follow WBC, Possible discharge tomorrow if patient is stable History Interval history: I have seen and examined the patient at the bedside Patient's chart and medications reviewed Patient has severe leukopenia due to chemotherapy due to cancer Chest x-ray very small stable apical pneumothorax Surgery cleared for discharge and follow-up outpatient Hospitalist Physical - Constitutional Vitals: Temp Pulse Resp BP Pulse Ox 98.2 F 95 H 18 108/67 95 04/16/21 15:47 04/16/21 15:47 04/16/21 15:47 04/16/21 15:47 04/16/21 15:47 General appearance: Present: no acute distress, well-nourished - EENT Eyes: Present: PERRL, EOM intact - Neck Neck: Present: supple, normal ROM - Respiratory Respiratory effort: normal Respiratory: bilateral: diminished, negative: rales, rhonchi, wheezing - Cardiovascular Rhythm: regular Heart Sounds: Present: S1 & S2 - Extremities Extremities: no ischemia, No edema - Abdominal General gastrointestinal: tender, non-distended, normal bowel sounds - Integumentary Integumentary: Present: clear, warm - Psychiatric Psychiatric: appropriate mood/affect, cooperative - Neurologic Neurologic: CNII-XII intact, moves all extremities Results - Labs CBC & Chem 7: 04/16/21 06:28 04/16/21 06:28 Labs: Laboratory Last Values WBC 1.4 K/mm3 (4.5-11.0) L* 04/16/21 06:28 RBC 4.12 M/mm3 (3.65-5.03) 04/16/21 06:28 Hgb 11.1 gm/dl (11.8-15.2) L 04/16/21 06:28 Hct 34.9 % (35.5-45.6) L 04/16/21 06:28 MCV 85 fl (84-94) 04/16/21 06:28 MCH 27 pg (28-32) L 04/16/21 06:28 MCHC 32 % (32-34) 04/16/21 06:28 RDW 24.0 % (13.2-15.2) H 04/16/21 06:28 Plt Count 178 K/mm3 (140-440) 04/16/21 06:28 Add Manual Diff Complete 04/16/21 06:28 Total Counted 100 04/16/21 06:28 Seg Neuts % (Manual) 18.0 % (40.0-70.0) L 04/16/21 06:28 Lymphocytes % (Manual) 64.0 % (13.4-35.0) H 04/16/21 06:28 Monocytes % (Manual) 17.0 % (0.0-7.3) H 04/16/21 06:28 Eosinophils % (Manual) 1.0 % (0.0-4.3) 04/16/21 06:28 Basophils % (Manual) 1.0 % (0.0-1.8) 04/14/21 17:42 Nucleated RBC % Not Reportable 04/16/21 06:28 Seg Neutrophils # Man 0.3 K/mm3 (1.8-7.7) L 04/16/21 06:28 Band Neutrophils # 0.0 K/mm3 04/16/21 06:28 Lymphocytes # (Manual) 0.9 K/mm3 (1.2-5.4) L 04/16/21 06:28 Abs React Lymphs (Man) 0.0 K/mm3 04/16/21 06:28 Monocytes # (Manual) 0.2 K/mm3 (0.0-0.8) 04/16/21 06:28 Eosinophils # (Manual) 0.0 K/mm3 (0.0-0.4) 04/16/21 06:28 Basophils # (Manual) 0.0 K/mm3 (0.0-0.1) 04/16/21 06:28 Metamyelocytes # 0.0 K/mm3 04/16/21 06:28 Myelocytes # 0.0 K/mm3 04/16/21 06:28 Promyelocytes # 0.0 K/mm3 04/16/21 06:28 Blast Cells # 0.0 K/mm3 04/16/21 06:28 WBC Morphology Not Reportable 04/16/21 06:28 WBC Morphology TNR 04/16/21 06:28 Hypersegmented Neuts Not Reportable 04/16/21 06:28 Hyposegmented Neuts Not Reportable 04/16/21 06:28 Hypogranular Neuts Not Reportable 04/16/21 06:28 Smudge Cells Not Reportable 04/16/21 06:28 Toxic Granulation Not Reportable 04/16/21 06:28 Toxic Vacuolation Not Reportable 04/16/21 06:28 Dohle Bodies Not Reportable 04/16/21 06:28 Pelger-Huet Anomaly Not Reportable 04/16/21 06:28 Greg Rods Not Reportable 04/16/21 06:28 Platelet Estimate Not Reportable 04/16/21 06:28 Clumped Platelets Not Reportable 04/16/21 06:28 Plt Clumps, EDTA Not Reportable 04/16/21 06:28 Large Platelets Not Reportable 04/16/21 06:28 Giant Platelets Not Reportable 04/16/21 06:28 Platelet Satelliting Not Reportable 04/16/21 06:28 Plt Morphology Comment Not Reportable 04/16/21 06:28 RBC Morphology Not Reportable 04/16/21 06:28 Dimorphic RBCs Not Reportable 04/16/21 06:28 Polychromasia Not Reportable 04/16/21 06:28 Hypochromasia Not Reportable 04/16/21 06:28 Poikilocytosis 1+ 04/16/21 06:28 Anisocytosis 2+ 04/16/21 06:28 Microcytosis Not Reportable 04/16/21 06:28 Macrocytosis Not Reportable 04/16/21 06:28 Spherocytes Not Reportable 04/16/21 06:28 Pappenheimer Bodies Not Reportable 04/16/21 06:28 Sickle Cells Not Reportable 04/16/21 06:28 Target Cells Not Reportable 04/16/21 06:28 Tear Drop Cells Not Reportable 04/16/21 06:28 Ovalocytes Rare 04/16/21 06:28 Helmet Cells Not Reportable 04/16/21 06:28 Oliver-Sunray Bodies Not Reportable 04/16/21 06:28 [place] Rings Not Reportable 04/16/21 06:28 Isabelle Cells Not Reportable 04/16/21 06:28 Bite Cells Not Reportable 04/16/21 06:28 Crenated Cell Not Reportable 04/16/21 06:28 Elliptocytes Not Reportable 04/16/21 06:28 Acanthocytes (Spur) Not Reportable 04/16/21 06:28 Rouleaux Not Reportable 04/16/21 06:28 Hemoglobin C Crystals Not Reportable 04/16/21 06:28 Schistocytes Rare 04/16/21 06:28 Malaria parasites Not Reportable 04/16/21 06:28 Mio Bodies Not Reportable 04/16/21 06:28 Hem Pathologist Commnt No 04/16/21 06:28 Sodium 134 mmol/L (137-145) L 04/16/21 06:28 Potassium 4.1 mmol/L (3.6-5.0) 04/16/21 06:28 Chloride 93.6 mmol/L (98-107) L 04/16/21 06:28 Carbon Dioxide 28 mmol/L (22-30) 04/16/21 06:28 Anion Gap 17 mmol/L 04/16/21 06:28 BUN 32 mg/dL (9-20) H 04/16/21 06:28 Creatinine 4.7 mg/dL (0.8-1.3) H 04/16/21 06:28 Estimated GFR 15 ml/min 04/16/21 06:28 BUN/Creatinine Ratio 7 % 04/16/21 06:28 Glucose 98 mg/dL (75-100) 04/16/21 06:28 Calcium 9.6 mg/dL (8.4-10.2) 04/16/21 06:28 Total Bilirubin 0.30 mg/dL (0.1-1.2) 04/16/21 06:28 AST 21 units/L (5-40) 04/16/21 06:28 ALT 14 units/L (7-56) 04/16/21 06:28 Alkaline Phosphatase 127 units/L (35-129) 04/16/21 06:28 Total Protein 7.7 g/dL (6.3-8.2) 04/16/21 06:28 Albumin 4.0 g/dL (3.9-5) 04/16/21 06:28 Albumin/Globulin Ratio 1.1 % 04/16/21 06:28 Hepatitis A IgM Ab Non-reactive (NonReactive) 04/15/21 09:30 Hep Bs Antigen Nonreactive (Negative) 04/15/21 09: Hep B Core IgM Ab Non-reactive (NonReactive) 04/15/21 09:30 Hepatitis C Antibody Non-reactive (NonReactive) 04/15/21 09:30 [place]/IV: Voiding Method Urinal Active Medications - Current Medications Current Medications: Generic Name Dose Route Start Last Admin Trade Name Freq PRN Reason Stop Dose Admin Acetaminophen 650 mg 04/14/21 22:01 Acetaminophen 325 Mg Tab PO Q4H PRN Pain MILD(1-3)/Fever >100.5/[place] Albuterol 2.5 mg 04/14/21 22:01 Albuterol 2.5 Mg/3 Ml Nebu IH Q4HRT PRN Shortness Of Breath Albuterol/Ipratropium 1 ampul 04/15/21 02:00 04/16/21 13:57 Ipratropium/Albuterol Sulfate 3 Ml Ampul.Neb IH 1 ampul Q6HRT DEJA Administration Arformoterol Tartrate 15 mcg 04/15/21 08:00 04/16/21 13:57 Arformoterol 15 Mcg/2 Ml Nebu IH 15 mcg Q12HRT DEJA Administration Budesonide 0.5 mg 04/15/21 08:00 04/16/21 13:56 Budesonide 0.5 Mg/2 Ml Nebu IH 0.5 mg Q12HRT DEJA Administration Clonidine HCl 0.2 mg 04/15/21 22:00 04/15/21 21:40 Clonidine 0.2 Mg Tab PO 0.2 mg QHS DEJA Administration Famotidine 10 mg 04/15/21 10:00 04/16/21 10:47 Famotidine 10 Mg Tab PO 10 mg BID DEJA Administration Furosemide 20 mg 04/15/21 10:00 04/16/21 10:47 Furosemide 20 Mg Tab PO 20 mg BID DEJA Administration Heparin Sodium (Porcine) 5,000 unit 04/15/21 10:00 04/16/21 10:47 Heparin 5,000 Unit/1 Ml Vial SUB-Q 5,000 unit Q12HR DEJA Administration Hydrochlorothiazide 25 mg 04/15/21 10:00 04/16/21 10:47 Hydrochlorothiazide 25 Mg Tab PO 25 mg DAILY DEJA Administration Hydromorphone HCl 0.5 mg 04/14/21 22:01 Hydromorphone 1 Mg/1 Ml Inj IV Q3H PRN Pain , Severe (7-10) Sodium Chloride 100 mls @ 999 mls/hr 04/15/21 07:50 Nacl 0.9% IV TIFFANIE PRN Hypotension Ondansetron HCl 4 mg 04/14/21 22:01 Ondansetron 4 Mg/2 Ml Inj IV Q8H PRN Nausea And Vomiting Oxycodone/Acetaminophen 1 tab 04/14/21 22:01 04/16/21 10:47 Oxycodone /Acetaminophen 5-325mg Tab PO 1 tab Q6H PRN Administration Pain, Moderate (4-6) Sodium Chloride 10 ml 04/15/21 10:00 04/16/21 10:47 Sodium Chloride 0.9% 10 Ml Flush Syringe IV 10 ml BID DEJA Administration Sodium Chloride 10 ml 04/14/21 22:01 Sodium Chloride 0.9% 10 Ml Flush Syringe IV PRN PRN LINE FLUSH Nutrition/Malnutrition Assess - Dietary Evaluation Nutrition/Malnutrition Findings: Nutrition Notes Start: 04/15/21 1 3:12 Freq: Status: Active Protocol: Document 04/15/21 13:12 VALERIA (Rec: 04/15/21 13:20 [facility] [id number]) Nutrition Notes Need for Assessment 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 Pt not in room at time of visit (11:26); he is at HD. Pt with hx of lung CA. Burn Absent Trauma Absent Is patient on ventilator? No Is Patient Ambulatory and/or Out of Bed Yes REE-([facility]-ambulatory/OOB) [ 2040.000 [id number]] Calculation Used for Recommendations [facility] Additional Notes Pro needs >1.2g/kg: >88g/day Fluid needs 1-1.5L/day Nutrition Intervention Follow-Up By: 04/19/21 Additional Comments F/U: MST assessment, intakes ( meals/ONS)
[2021-04-16] MEDS: cloNIDine 0.2 MG TAB PO SCH (21:43)
[2021-04-17] MEDS: IPRATROPIUM/ALBUTEROL SULFATE 3 ML AMPUL.NEB IH SCH ×4 (03:57→21:02)
--- NOTE | 2021-04-17 08:32 | XRay Report ---
CHEST 1 VIEW 04/17/2021 7:15 AM INDICATION / CLINICAL INFORMATION: f/u right pneumothorax. COMPARISON: 04/16/21 8:03 AM FINDINGS: SUPPORT DEVICES: Unchanged. HEART / MEDIASTINUM: Stable. LUNGS / PLEURA: Bilateral parenchymal scarring is unchanged. Biapical pulmonary blebs, right greater than left, are unchanged. Small right apical pneumothorax is stable. ADDITIONAL FINDINGS: No significant additional findings. IMPRESSION: 1. Stable right apical pneumothorax. Signer Name: Ly Dewitt MD Signed: 04/17/2021 8:28 AM Workstation Name: [id number]
[2021-04-17] MEDS: FAMOTIDINE 10 MG TAB PO SCH ×2 (10:12→23:10)
[2021-04-17] MEDS: HEPARIN 5,000 UNIT/1 ML VIAL SUB-Q SCH ×2 (10:13→23:11)
[2021-04-17] MEDS: FUROSEMIDE 20 MG TAB PO SCH ×2 (10:13→23:10)
[2021-04-17] MEDS: hydroCHLOROthiazide 25 MG TAB PO SCH (10:13)
[2021-04-17] MEDS: oxyCODONE /ACETAMINOPHEN 5-325MG TAB PO PRN ×2 (10:13→17:55)
[2021-04-17] MEDS: ARFORMOTEROL 15 MCG/2 ML NEBU IH SCH ×2 (10:14→21:02)
[2021-04-17] MEDS: BUDESONIDE 0.5 MG/2 ML NEBU IH SCH ×2 (10:15→21:02)
--- NOTE | 2021-04-17 10:47 | Progress Note ---
Assessment and Plan - Patient Problems (1) Pneumothorax Current Visit: Yes Status: Acute Plan to address problem: 1) Okay for discharge from my perspective. Pt can f/u in my office in one week. Subjective Date of service: 04/17/21 Patient Reports: Positive: no new complaints Objective Vital Signs - 12hr 04/16/21 04/17/21 04/17/21 23:52 05:55 08:05 Temperature 97.9 F 98.0 F Pulse Rate 96 H 111 H 111 H Respiratory 20 20 Rate Blood Pressure 102/67 107/69 O2 Sat by Pulse 98 96 100 Oximetry - Respiratory normal expansion, normal respiratory effort, clear to percussion, clear to auscultation - Labs 04/16/21 06:28 04/16/21 06:28 - Imaging Chest x-ray: report reviewed
[2021-04-17] MEDS ORDERED: TBO-FILGRASTIM 480 MCG/0.8 ML SUB-Q NR (15:00)
[2021-04-17 15:18] LABS: Hematocrit 34.3 % (35.5-45.6); Hemoglobin 10.9 gm/dl (11.8-15.2); Mean Corpuscular HGB Conc 32 % (32-34); Mean Corpuscular Volume 85 fl (84-94); Platelet Count 166 K/mm3 (140-440); Red Blood Count 4.04 M/mm3 (3.65-5.03)
[2021-04-17 15:31] LABS: Red Cell Distribution Width 23.3 % (13.2-15.2)
--- NOTE | 2021-04-17 15:40 | Consultation ---
DATE OF CONSULTATION: 04/15/2021 PULMONARY CONSULTATION NOTE CONSULTING PHYSICIAN: Dr. Whittington. REASON FOR CONSULTATION: Pneumothorax. CHIEF COMPLAINT AND HISTORY OF PRESENT ILLNESS: The patient is a 65-year-old male with history of metastatic lung cancer as well as end-stage renal disease, on dialysis, was brought into the Emergency Room because of a possible pneumothorax. He reportedly had a routine PET scan done; this had been ordered by his oncologist. He was told to then come to the Emergency Room because he had a possible pneumothorax on PET scan and he denies any new interventions. He does have a Port-A-Cath, but none of those procedures were done acutely. The patient also denied any symptoms whatsoever, felt like his breathing was the same. Denied any chest pain. He was evaluated in the Emergency Room and CT scan did confirm pneumothorax. We are asked to assist with management. The patient being clinically stable, no immediate chest tube was placed. When I stopped by to see him this morning, he was resting in bed on 3 liters nasal cannula, which he says is close to his home baseline therapy. He denied any chest pain. Denied any gross or streaky hemoptysis. Denied any chest wall trauma. This really is as much of the history of presentation as I have. PAST MEDICAL HISTORY: Arthritis; COPD; end-stage renal disease, on dialysis; hypertension; lung cancer and history of back pain. PAST SURGICAL HISTORY: He has vascular catheter and I believe a Port-A-Cath in place. MEDICATIONS: He was on at the time I stopped by to see him, according to the medication administration record included the following: Tylenol 650 mg p.o. q.4 hours p.r.n. mild pain or fevers, albuterol 2.5 mg nebulized q.4 hours p.r.n. shortness of breath, DuoNeb nebulizer treatments scheduled q.6 hours, Brovana 15 mcg nebulized q.12 hours, Pulmicort 0.5 mg nebulized q.12 hours, Pepcid 10 mg p.o. b.i.d., Lasix 20 mg p.o. b.i.d., heparin 5000 units subQ q.8 hours, hydrochlorothiazide 25 mg p.o. daily, Dilaudid 0.5 mg IV q.3 hours p.r.n. severe pain, Zofran 4 mg IV q.8 hours p.r.n. nausea and vomiting, and p.r.n. Percocet. ALLERGIES: No known drug allergies. DIET: Thin gentleman. Denies acute weight loss or gain in the preceding few weeks to months. SOCIAL HISTORY: Lives in the community. He does have a remote tobacco smoking history. Denies current alcohol, tobacco or illicit drug use or abuse. FAMILY HISTORY: Otherwise, noncontributory. REVIEW OF SYSTEMS: No loss of consciousness. No new onset seizures. No new onset focal weakness. Denies gross hematochezia or melena. Denies gross hematuria or dysuria. No hematemesis, no hemoptysis. Denies polydipsia, polyuria. Complete 13-system review of system was obtained. Pertinent positives and/or negatives as in body of history above, otherwise they are noncontributory. PHYSICAL EXAMINATION: VITAL SIGNS: At presentation and since he was afebrile, temperature was 98.0 degrees Fahrenheit, pulse of 89, respiratory rate of 20, blood pressure 121/67, O2 sats were 89% initially, he is now 98% on 3 liters nasal cannula. GENERAL: He is an elderly, thin, chronically-ill looking . Normocephalic, atraumatic, resting in bed with mildly increased respiratory effort at rest, but without accessory muscle use. HEAD, EYES, EARS, NOSE, AND THROAT: Anicteric. No conjunctival erythema. Oropharynx was moist. No gross jugular venous distention, no thyromegaly. Grossly, there were no palpable lymph nodes in the supraclavicular or submandibular lymph node chains. LUNGS: Auscultation of both lung alford significant for diminished bilateral breath sounds, prolonged expiratory phase. No active wheezing. HEART: Sounds 1 and 2 are heard at the time of my evaluation, regular rate and rhythm without overt rubs or murmurs. He did have an implanted Port-A-Cath in the right upper anterior chest wall and he had a Vas-Cath in the left subclavian/IJ position. ABDOMEN: Soft, flat, bowel sounds are positive, nontender, no palpable hepatosplenomegaly. EXTREMITIES: Without overt digital clubbing or cyanosis, no pedal edema. Pedal pulses are 2+ bilaterally. NEUROLOGIC: Pupils are equal, round, about 4 mm, reactive to light. Extraocular muscle movements are intact. He moves all 4 extremities spontaneously. SKIN: Normal turgor in the areas examined without overt cellulitis or rash. Please see the wound care nurses' notes for full description of his skin. PSYCHIATRIC: Mood was normal. Affect was a little bit anxious/annoyed. He did have intact judgment and insight. LABORATORY DATA: From my review are as follows: Admission white cell count 1900, hemoglobin 12.2, hematocrit 38.8, platelet count 202. No band forms on the manual differential. Serum sodium 133, potassium 4.2, chloride 88, bicarbonate 29, BUN 45, creatinine 5.4, glucose 115. Liver function test within normal limits. Hepatitis screen within normal limits. No microbiology culture. I have looked at the chest x-ray. I have looked at the CT scans as well as the repeat one this morning. I do agree he has pneumothorax involving the lungs with collapse around really the periphery of the apex. He does have severe bullous disease that has actually been present since 2019, at least on my evaluation, but there is definitely a new pneumothorax. ASSESSMENT: 1. Acute pneumothorax, possibly spontaneous. 2. Lung cancer, advanced. 3. Chronic obstructive lung disease. 4. Chronic hypoxemic respiratory failure. 5. End-stage renal disease, on dialysis. 6. Arthritis. 7. Hypertension. 8. History of back pain. PLAN: The patient is clinically stable. I have discussed the options with him. Placement of a small bore chest tube connected to suction may be an option as well as just a small bore chest tube with connection to a Heimlich valve and watchful waiting is another option. I have told him that if the leak is persistent, he most likely will develop symptoms down the line, how soon that will happen, however, cannot be predicted. He could also have a spontaneous acute decompensation that could lead to a tension pneumothorax. Nonetheless, he remains very stable. This could be just progression of his disease and rupture of a bleb. I will defer to the surgeon for determination for placement of chest tube, especially in terms of watchful waiting. In the meantime, we should keep him on high dose oxygen therapy to try and aid resumption of pneumothorax and continued tobacco abstinence has been counseled. He is appropriately on GI and DVT prophylaxis. Flu and pneumonia vaccination will be addressed per protocol. Thank you very much for the consult. We will follow along and make further recommendations as picture progresses/becomes clearer. He will also certainly be seen in followup in the clinic. Certainly, repeat chest x-ray in the morning will be of benefit. TID: [id number] RECEIPT: [id number] ADELINE/FABIENNE/DONAVON
[2021-04-17 16:21] LABS: Total Cells Counted 100
[2021-04-17 16:22] LABS: Giant Platelets Few; Platelet Estimate Consistent w Auto; Target Cells 1+
--- NOTE | 2021-04-17 17:23 | Progress Note ---
Assessment and Plan Assessment - End-stage renal disease on hemodialysis - Hypertension - Pneumothorax - Hyperparathyroidism - Hyperphosphatemia - Neutropenia - History of lung Cancer Recommendations - Continue HD MWF - Monitor labs and volume status daily and assess need for additional dialysis session - Continue home antihypertensives - Hold antihypertensives on hemodialysis days for systolics less than 160 - Continue phosphorus binders - ESRD diet with 1.4 g/kg per day protein - Renally dose medication for creatinine clearance less than 15 cc/min - PTX management per pulmonology - Neutropenic precautions Subjective Date of service: 04/17/21 Principal diagnosis: Pneumothorax Interval history: Patient was seen for his renal issues Nursing, interdisciplinary and consult notes were reviewed Vitals, input and output, medications and labs were reviewed No complications with HD Objective - Exam Narrative Exam: General: No acute distress HEENT: Oral mucosa moist Neck: Supple, no JVD Chest: Clear to auscultation bilaterally Heart: RRR, S1 and S2, no pericardial rub Abdomen: Soft, nontender, no renal bruit Extremity: No peripheral cyanosis, edema Neurological: Alert, awake, no asterixis Dermatology: No skin rash Psych: No agitation Musculoskeletal: No joint effusion - Vital Signs Vital signs: Vital Signs - 12hr 04/17/21 04/17/21 05:55 08:05 Temperature 98.0 F Pulse Rate 111 H 111 H Respiratory 20 Rate Blood Pressure 107/69 O2 Sat by Pulse 96 100 Oximetry - Lab 04/17/21 15:09 04/16/21 06:28 Most recent lab results Calcium 9.6 mg/dL (8.4-10.2) 04/16/21 06:28 Medications & Allergies - Medications Allergies/Adverse Reactions: Allergies No Known Allergies Allergy (Verified 04/14/21 17:38) Home Medications: Home Medications Medication Instructions Recorded Confirmed Last Taken Type Albuterol Sulfate [Proventil HFA] 2 puff INHALATION PRN PRN 08/30/13 04/14/21 12/11/16 History hydroCHLOROthiazide 25 mg PO DAILY 08/30/13 04/14/21 12/12/16 07:00 History [Hydrochlorothiazide] cloNIDine [Catapres] 0.2 mg PO QHS 05/29/14 04/14/21 09/26/16 History Fluticasone/Salmeterol [Advair 1 puff INHALATION BID 06/29/14 04/14/21 12/12/16 07:00 History Diskus 250-50 mcg] Acetaminophen/Codeine [Tylenol #3] 1 tab PO Q6H PRN #7 tab 01/26/17 04/14/21 Unknown Rx traMADoL [Ultram] 50 mg PO Q6HR PRN #20 tablet 07/05/18 04/14/21 Unknown Rx Furosemide [Lasix TAB] 20 mg PO BID #60 tablet 09/21/19 04/14/21 Unknown Rx Active Medications: Generic Name Dose Route Start Last Admin Trade Name Freq PRN Reason Stop Dose Admin Acetaminophen 650 mg 04/14/21 22:01 Acetaminophen 325 Mg Tab PO Q4H PRN Pain MILD(1-3)/Fever >100.5/[place] Albuterol 2.5 mg 04/14/21 22:01 Albuterol 2.5 Mg/3 Ml Nebu IH Q4HRT PRN Shortness Of Breath Albuterol/Ipratropium 1 ampul 04/15/21 02:00 04/17/21 15:59 Ipratropium/Albuterol Sulfate 3 Ml Ampul.Neb IH Not Given Q6HRT DEJA Arformoterol Tartrate 15 mcg 04/15/21 08:00 04/17/21 10:14 Arformoterol 15 Mcg/2 Ml Nebu IH Not Given Q12HRT DEJA Budesonide 0.5 mg 04/15/21 08:00 04/17/21 10:15 Budesonide 0.5 Mg/2 Ml Nebu IH Not Given Q12HRT DEJA Clonidine HCl 0.2 mg 04/15/21 22:00 04/16/21 21:43 Clonidine 0.2 Mg Tab PO 0.2 mg QHS DEJA Administration Famotidine 10 mg 04/15/21 10:00 04/17/21 10:12 Famotidine 10 Mg Tab PO 10 mg BID DEJA Administration Furosemide 20 mg 04/15/21 10:00 04/17/21 10:13 Furosemide 20 Mg Tab PO 20 mg BID DEJA Administration Heparin Sodium (Porcine) 5,000 unit 04/15/21 10:00 04/17/21 10:13 Heparin 5,000 Unit/1 Ml Vial SUB-Q 5,000 unit Q12HR DEJA Administration Hydrochlorothiazide 25 mg 04/15/21 10:00 04/17/21 10:13 Hydrochlorothiazide 25 Mg Tab PO 25 mg DAILY DEJA Administration Hydromorphone HCl 0.5 mg 04/14/21 22:01 Hydromorphone 1 Mg/1 Ml Inj IV Q3H PRN Pain , Severe (7-10) Sodium Chloride 100 mls @ 999 mls/hr 04/15/21 07:50 Nacl 0.9% IV TIFFANIE PRN Hypotension Ondansetron HCl 4 mg 04/14/21 22:01 Ondansetron 4 Mg/2 Ml Inj IV Q8H PRN Nausea And Vomiting Oxycodone/Acetaminophen 1 tab 04/14/21 22:01 04/17/21 10:13 Oxycodone /Acetaminophen 5-325mg Tab PO 1 tab Q6H PRN Administration Pain, Moderate (4-6) Sodium Chloride 10 ml 04/15/21 10:00 04/17/21 10:13 Sodium Chloride 0.9% 10 Ml Flush Syringe IV 10 ml BID DEJA Administration Sodium Chloride 10 ml 04/14/21 22:01 Sodium Chloride 0.9% 10 Ml Flush Syringe IV PRN PRN LINE FLUSH Tbo-Filgrastim 480 mcg 04/17/21 15:00 Tbo-Filgrastim 480 Mcg/0.8 Ml SUB-Q 04/17/21 20:00 ONCE@1500 NR
--- NOTE | 2021-04-17 19:47 | Progress Note ---
Assessment and Plan 65-year-old male with history of lung cancer and end-stage renal disease on hemodialysis was brought to the emergency room because of possible pneumothorax. Patient had a routine PET scan done today. That was ordered by his oncologist. He was called by home after the PET scan told he could return to the emergency department because he had a possible pneumothorax seen on PET scan. Patient states he feels at his baseline. States with his oxygen he is at his baseline level of breathing. Denies any additional cough shortness of breath. Denies any fevers chills. Patient has not missed any appointments with his dialysis. Patient has a port for his chemotherapy as well as a permacatheter for dialysis. Neither of the have been placed in the last [address] scan of the chest in the emergency room showed: 1. Moderately large right pneumothorax. 2. Severe bullous emphysema. 3. Mild bronchiectasis and peribronchial thickening in both lower lobes. There is mild associated pneumonia, predominantly in the left lower lobe. Past Medical History: arthritis, COPD, ESRD, hypertension, other (Lung cancer, asthma, back problem. Patient awake, Resting on 2 litres O2. O2 saturation 98%. Patient denies chest pain or shortness of breath or cough. Patient diagnosed with stage !V lung cancer. Patient received chemotherapy. Patient has heavy history of smoking. Smoked 1 pack a day x 45 years. Stopped smoking 3 years ago. Denies alcohol or drug abuse. 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 Has children 1. Patient afebrile. Has Leukopenia. Blood pressure 134/76. Pulse 99. CT of chest with out contrast 04/14/21 reported Moderately large right pn eumothorax. Severe bullous emphysema. Mild bronchiectasis and peribronchial thickening in both lower lobes. There is mild associated pneumonia, predominantly in the left lower lobe. Chest xray done 04/16/21 reported Since the bullous disease, most notable the right lung apex, unchanged. No definite pneumothorax. No focal airspace consolidation. No pneumothorax. Chest xray done 04/17/21 reported Stable right apical pneumothorax. Patient denies any chest pain or shortness of breath. Patient presently on Brovanna/Budesonide, Albuterol/atrovent aerosol treatments, S/C heparin and famotidine. I - Patient Problems (1) Bullous emphysema with collapse Current Visit: Yes Status: Acute Plan to address problem: Continue bronchodilators. Continue watch bullous disease with repeat chest xray and CAT scan of chest. (2) COPD (chronic obstructive pulmonary disease) Current Visit: Yes Status: Acute Qualifiers: Qualified Code(s): J43.0 - Unilateral pulmonary emphysema [MacLeod's synd josette] Plan to address problem: O2 2 litres via nasal canula. Brovanna/Budesonide aerosol treatments.q 12 hours. Albuterol/atrovent aerosol treatments as needed. Continue S/C Heparin Continue famotidine. (3) ESRD (end stage renal disease) Current Visit: Yes Status: Acute Plan to address problem: Management as per nephrology. (4) Hypertension Current Visit: Yes Status: Acute Plan to address problem: Management as per primary care. (5) Lung cancer Current Visit: Yes Status: Acute Plan to address problem: Stage 1V. Recommend to consult Oncology. Subjective Date of service: 04/17/21 Principal diagnosis: Pneumothorax Interval history: 65-year-old male with history of lung cancer and end-stage renal disease on hemodialysis was brought to the emergency room because of possible pneumothorax. Patient had a routine PET scan done today. That was ordered by his oncologist. He was called by home after the PET scan told he could return to the emergency department because he had a possible pneumothorax seen on PET scan. Patient states he feels at his baseline. States with his oxygen he is at his baseline level of breathing. Denies any additional cough shortness of breath. Denies any fevers chills. Patient has not missed any appointments with his dialysis. Patient has a port for his chemotherapy as well as a permacatheter for dialysis. Neither of the have been placed in the last [address] scan of the chest in the emergency room showed: 1. Moderately large right pneumothorax. 2. Severe bullous emphysema. 3. Mild bronchiectasis and peribronchial thickening in both lower lobes. There is mild associated pneumonia, predominantly in the left lower lobe. Patient has history of arthritis, COPD, ESRD, hypertension, other (Lung cancer, asthma, back problem. Patient awake, Resting on 2 litres O2. O2 saturation 98%. Patient denies chest pain or shortness of breath. Patient diagnosed with stage !V lung cancer. Patient received chemotherapy. Patient has heavy history of smoking. Smoked 1 pack a day x 45 years. Stopped smoking 3 years ago. Denies alcohol or drug abuse. 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 Has children 1. Patient afebrile. Has Leukopenia. Blood pressure 134/76. Pulse 99. CT of chest with out contrast 04/14/21 reported Moderately large right pneumothorax. Severe bullous emphysema. Mild bronchiectasis and peribronchial thickening in both lower lobes. There is mild associated pneumonia, predominantly in the left lower lobe. Chest xray done 04/16/21 reported Since the bullous disease, most notable the right lung apex, unchanged. No definite pneumothorax. No focal airspace consolidation. No pneumothorax. Chest xray done 04/17/21 reported Stable right apical pneumothorax. Patient denies any chest pain or shortness of breath or cough. Patient presently on Brovanna/Budesonide, Albuterol/atrovent aerosol treatments, S/C heparin and famotidine. Objective Vital Signs - 12hr 04/17/21 08:05 Pulse Rate 111 H O2 Sat by Pulse 100 Oximetry Constitutional: no acute distress, alert Eyes: non-icteric ENT: oropharynx moist Neck: supple, no lymphadenopathy Ascultation: Bilateral: rhonchi (on left side.), other (Prolonged expiratory phase.) Cardiovascular: regular rate and rhythm Gastrointestinal: normoactive bowel sounds, soft, non-tender Integumentary: normal Extremities: no cyanosis, no edema Neurologic: normal mental status, non-focal exam, pupils equal and round Psychiatric: mood appropriate, affect normal CBC and BMP: 04/17/21 15:09 04/16/21 06:28 Abnormal lab findings: Abnormal Labs 04/14/21 04/14/21 04/15/21 17:42 17:42 04:13 WBC 1.9 L* Hgb Hct MCH 27 L RDW 24.2 H Seg Neuts % (Manual) 38.0 L Lymphocytes % (Manual) 56.0 H Monocytes % (Manual) Seg Neutrophils # Man 0.7 L Lymphocytes # (Manual) 1.1 L Sodium 133 L 132 L Chloride 87.8 L 90.2 L BUN 45 H 51 H Creatinine 5.4 H 5.8 H Glucose 115 H 102 H 04/16/21 04/16/21 04/17/21 06:28 06:28 15:09 WBC 1.4 L* 1.8 L* Hgb 11.1 L 10.9 L Hct 34.9 L 34.3 L MCH 27 L 27 L RDW 24.0 H 23.3 H Seg Neuts % (Manual) 18.0 L 28.0 L Lymphocytes % (Manual) 64.0 H 45.0 H Monocytes % (Manual) 17.0 H 20.0 H Seg Neutrophils # Man 0.3 L 0.5 L Lymphocytes # (Manual) 0.9 L 0.8 L Sodium 134 L Chloride 93.6 L BUN 32 H Creatinine 4.7 H Glucose Chest x-ray: report reviewed, image reviewed Additional Studies: CHEST 1 VIEW 04/17/2021 7:15 AM INDICATION / CLINICAL INFORMATION: f/u right pneumothorax. COMPARISON: 04/16/21 8:03 AM FINDINGS: SUPPORT DEVICES: Unchanged. HEART / MEDIASTINUM: Stable. LUNGS / PLEURA: Bilateral parenchymal scarring is unchanged. Biapical pulmonary blebs, right greater than left, are unchanged. Small right apical pneumothorax is stable. ADDITIONAL FINDINGS: No significant additional findings. IMPRESSION: 1. Stable right apical pneumothorax.
[2021-04-17] MEDS: cloNIDine 0.2 MG TAB PO SCH (23:10)
[2021-04-18] MEDS: oxyCODONE /ACETAMINOPHEN 5-325MG TAB PO PRN (00:07)
[2021-04-18 06:35] LABS: Calcium 9.3 mg/dL (8.4-10.2)
[2021-04-18 06:36] LABS: Hematocrit 32.5 % (35.5-45.6); Hemoglobin 10.3 gm/dl (11.8-15.2); Mean Corpuscular HGB Conc 32 % (32-34); Mean Corpuscular Volume 85 fl (84-94); Platelet Count 169 K/mm3 (140-440); Red Blood Count 3.81 M/mm3 (3.65-5.03)
[2021-04-18 06:43] LABS: Red Cell Distribution Width 23.5 % (13.2-15.2)
--- NOTE | 2021-04-18 07:22 | Discharge Summary ---
Providers - Providers Date of Admission: 04/15/21 13:12 Date of discharge: 04/18/21 Attending physician: JERARDO CASTRO 04/14/21 22:01 Consult to Physician [CONS] Routine Comment: frannie spoke with dr. byrd/ kishore Consulting Provider: EDDIE BYRD Physician Instructions: Reason For Exam: Pneumothorax 04/14/21 22:05 Consult to Physician [CONS] Routine Comment: Consulting Provider: BHARGAVI GODDARD Physician Instructions: Reason For Exam: esrd 04/14/21 22:16 Consult to Physician [CONS] Routine Comment: dr. magallon is aware/ kishore Consulting Provider: TANG MERCADO Physician Instructions: Reason For Exam: Pneumothorax 04/15/21 13:29 Consult to Physician [CONS] Routine Comment: dr. romero is aware/ kishore Consulting Provider: EMANUEL ARROYO Physician Instructions: Reason For Exam: Pneumothorax Primary care physician: MAXWELL SNYDER Hospitalization Reason for admission: Worsening shortness of breath/questionable pneumothorax Condition: Stable Pertinent studies: CT head without contrast Multiple chest x-rays CTA chest; x2 Repeat chest x-ray 04/16/2021; no significant change, bullous disease most notable on the right lung apex unchanged no definite pneumothorax no focal airspace consolidation Chest x-ray; 04/17/2021; stable small right apical pneumothorax Patient is asymptomatic Hospital course: 65-year-old male patient with significant past medical history of lung cancer, end-stage renal disease, on dialysis was admitted through emergency room with worsening shortness of breath and possible pneumothorax. Patient had a routine PET scan done today on the day of admission ordered by oncologist and initial evaluation findings consistent with possible right pneumothorax Patient did not have any respiratory distress or chest pain and no new complaints patient was evaluated by surgeon as well as pulmonary, they did multiple chest x-rays and a repeat CT scan, and patient is stable asymptomatic did not think it was,Right pneumothorax. Patient did not have any symptoms And surgery and pulmonary cleared for discharge Nephrology evaluated patient and patient received dialysis per schedule Patient has severe leukopenia/neutropenia,And received filgrastim 2 doses with significant improvement of WBC from 1.4-2.3 Today patient is comfortable no new complaints vital signs stable, received his scheduled dialysis today Physical examination prior to discharge no drainage new changes stable at discharge Discharge diagnosis: --Suspicion of right pneumothorax Current Visit: Yes Status: Acute Patient did not have any respiratory symptoms Multiple follow-up chest x-rays and CT scans did not reveal definitive pneumothorax Surgery and pulmonary rule out pneumothorax --Leukopenia; 1.4K Current Visit: Yes Status: Acute Cancer patient, on chemotherapy, leukopenia Received 2 doses of filgrastim during hospital stay WBC improved to 2.3 --Bullous emphysema with collapse Current Visit: Yes Status: Acute Stable continue home oxygen 2 L NC as before --History of lung cancer; Current Visit: Yes Status: Chronic Patient follows with his oncologist upon discharge --ESRD (end stage renal disease) Current Visit: Yes Status: Acute Hemodialysis per schedule, nephrology evaluated the patient HD per schedule -- History of COPD (chronic obstructive pulmonary disease) Current Visit: Yes Status: Acute With bullous emphysema, home oxygen dependent 2 L nasal cannula DuoNeb by nebulizer steroids supportive care -- Hypertension/moderate control Current Visit: Yes Status: Acute Continue current antihypertensives , clonidine and hydrochlorothiazide As needed hydralazine, closely monitor blood pressures --DVT prophylaxis Current Visit: Yes Status: Acute Heparin 5000 units subcu renal dose. Patient is hemodynamically and clinically stable at discharge Disposition: 01 HOME / SELF CARE / HOMELESS Final Discharge Diagnosis (Prints w/discharge instructions): Questionable right pneumothorax. Work-up negative no right pneumothorax. Bullous emphysema with collapse improved. History of lung cancer. ESRD on hemodialysis. History of COPD hypertension. Leukopenia Time spent for discharge: 35 min Core Measure Documentation - Palliative Care Palliative Care/ Comfort Measures: Not Applicable - Core Measures Any of the following diagnoses?: none Exam - Constitutional Vitals: Temp Pulse Resp BP Pulse Ox 97.4 F L 98 H 20 133/85 96 04/18/21 03:59 04/18/21 03:59 04/18/21 03:59 04/18/21 03:59 04/18/21 03:59 General appearance: Present: no acute distress, well-nourished - EENT Eyes: Present: EOM intact - Neck Neck: Present: supple, normal ROM - Respiratory Respiratory effort: normal Respiratory: bilateral: diminished, negative: rales, rhonchi, wheezing - Cardiovascular Rhythm: regular Heart Sounds: Present: S1 & S2 - Extremities Extremities: no ischemia, No edema - Abdominal General gastrointestinal: Present: soft, non-tender, non-distended, normal bowel sounds - Integumentary Integumentary: Present: clear, warm - Musculoskeletal Musculoskeletal: strength equal bilaterally, generalized weakness - Psychiatric Psychiatric: appropriate mood/affect, cooperative - Neurologic Neurologic: CNII-XII intact, moves all extremities Plan Activity: advance as tolerated Diet: renal Additional Instructions: Follow nephrology , HD per schedule. advised to comply with medications diet follow-up visits in hemodialysis per schedule. If you have worsening symptoms contact MD or go to the nearest emergency room as needed. Advised to follow-up with his private oncologist per schedule. Patient advised to continue all his home medications. No new prescriptions needed Follow up with: MAXWELL SNYDER MD [Primary Care Provider] - 3-5 Days EDDIE BYRD MD [Staff Physician] - 14 Days RODGER MATTHEWS MD [Staff Physician] - 7 Days EMANUEL ARROYO MD [Staff Physician] - 7 Days
[2021-04-18] MEDS: ARFORMOTEROL 15 MCG/2 ML NEBU IH SCH (09:00)
[2021-04-18] MEDS: IPRATROPIUM/ALBUTEROL SULFATE 3 ML AMPUL.NEB IH SCH ×2 (09:00→18:00)
[2021-04-18] MEDS: BUDESONIDE 0.5 MG/2 ML NEBU IH SCH (09:00)
[2021-04-18] MEDS ORDERED: SODIUM CHLORIDE 0.9% 100 ML IV PRN (10:00)
[2021-04-18 10:39] LABS: ABG Base Excess 2.1 mmol/L (-2.0-3.0); ABG HCO3 27.8 mmol/L (20.0-26.0); ABG Methemoglobin 0.5 % (0.0-1.5); ABG Oxygen Saturation 83.9 % (95.0-99.0); ABG PH 7.381 pH Units (7.350-7.450)
--- NOTE | 2021-04-18 10:51 | Progress Note ---
Subjective Date of service: 04/18/21 Principal diagnosis: Pneumothorax Interval history: Assessment - End-stage renal disease on hemodialysis - Hypertension - Pneumothorax - Hyperparathyroidism - Hyperphosphatemia - Neutropenia - History of lung Cancer Recommendations - Continue HD MWF - Monitor labs and volume status daily and assess need for additional dialysis session - Continue home antihypertensives - Hold antihypertensives on hemodialysis days for systolics less than 160 - Continue phosphorus binders - ESRD diet with 1.4 g/kg per day protein - Renally dose medication for creatinine clearance less than 15 cc/min - PTX management per pulmonology - Neutropenic precautions Subjective Principal diagnosis: Pneumothorax Interval history: Patient was seen for his renal issues Nursing, interdisciplinary and consult notes were reviewed Vitals, input and output, medications and labs were reviewed No complications with HD Objective - Exam Narrative Exam: General: No acute distress HEENT: Oral mucosa moist Neck: Supple, no JVD Chest: Clear to auscultation bilaterally Heart: RRR, S1 and S2, no pericardial rub Abdomen: Soft, nontender, no renal bruit Extremity: No peripheral cyanosis, edema Neurological: Alert, awake, no asterixis Dermatology: No skin rash Psych: No agitation Musculoskeletal: No joint effusion Objective - Vital Signs Vital signs: Vital Signs - 12hr 04/17/21 04/18/21 04/18/21 23:10 00:07 01:53 Temperature Pulse Rate 99 H Respiratory 20 Rate Blood Pressure 137/76 O2 Sat by Pulse 98 Oximetry O2 Sat by Pulse Oximetry [ Posterior Bilateral Throughout] 04/18/21 04/18/21 04/18/21 03:59 08:20 10:00 Temperature 97.4 F L 97.7 F 98.8 F Pulse Rate 98 H 92 H 90 Respiratory 20 18 16 Rate Blood Pressure 133/85 115/74 121/61 O2 Sat by Pulse 96 97 Oximetry O2 Sat by Pulse 100 Oximetry [ Posterior Bilateral Throughout] 04/18/21 04/18/21 10:15 10:29 Temperature Pulse Rate 90 91 H Respiratory Rate Blood Pressure 121/61 123/67 O2 Sat by Pulse Oximetry O2 Sat by Pulse Oximetry [ Posterior Bilateral Throughout] - Lab 04/18/21 04:50 04/18/21 04:50 Most recent lab results ABG pH 7.381 pH Units (7.350-7.450) 04/18/21 09:27 ABG pCO2 48.0 mm Hg 04/18/21 09:27 ABG pO2 50.0 mm Hg (80.0-90.0) L 04/18/21 09:27 ABG HCO3 27.8 mmol/L (20.0-26.0) H 04/18/21 09:27 ABG O2 Saturation 83.9 % (95.0-99.0) L 04/18/21 09:27 Calcium 9.3 mg/dL (8.4-10.2) 04/18/21 04:50 Medications & Allergies - Medications Allergies/Adverse Reactions: Allergies No Known Allergies Allergy (Verified 04/14/21 17:38) Home Medications: Home Medications Medication Instructions Recorded Confirmed Last Taken Type Albuterol Sulfate [Proventil HFA] 2 puff INHALATION PRN PRN 08/30/13 04/14/21 0 12/11/16 History hydroCHLOROthiazide 25 mg PO DAILY 08/30/13 04/14/21 12/12/16 07:00 History [Hydrochlorothiazide] cloNIDine [Catapres] 0.2 mg PO QHS 05/29/14 04/14/21 09/26/16 History Fluticasone/Salmeterol [Advair 1 puff INHALATION BID 06/29/14 04/14/21 12/12/16 07:00 History Diskus 250-50 mcg] Acetaminophen/Codeine [Tylenol #3] 1 tab PO Q6H PRN #7 tab 01/26/17 04/14/21 Unknown Rx traMADoL [Ultram] 50 mg PO Q6HR PRN #20 tablet 07/05/18 04/14/21 Unknown Rx Furosemide [Lasix TAB] 20 mg PO BID #60 tablet 09/21/19 04/14/21 Unknown Rx Active Medications: Generic Name Dose Route Start Last Admin Trade Name Freq PRN Reason Stop Dose Admin Acetaminophen 650 mg 04/14/21 22:01 Acetaminophen 325 Mg Tab PO Q4H PRN Pain MILD(1-3)/Fever >100.5/[place] Albuterol 2.5 mg 04/14/21 22:01 Albuterol 2.5 Mg/3 Ml Nebu IH Q4HRT PRN Shortness Of Breath Albuterol/Ipratropium 1 ampul 04/18/21 08:00 04/18/21 09:00 Ipratropium/Albuterol Sulfate 3 Ml Ampul.Neb IH 1 ampul TIDRT DEJA Administration Arformoterol Tartrate 15 mcg 04/15/21 08:00 04/18/21 09:00 Arformoterol 15 Mcg/2 Ml Nebu IH 15 mcg Q12HRT DEJA Administration Budesonide 0.5 mg 04/15/21 08:00 04/18/21 09:00 Budesonide 0.5 Mg/2 Ml Nebu IH 0.5 mg Q12HRT DEJA Administration Clonidine HCl 0.2 mg 04/15/21 22:00 04/17/21 23:10 Clonidine 0.2 Mg Tab PO 0.2 mg QHS DEJA Administration Famotidine 10 mg 04/15/21 10:00 04/17/21 23:10 Famotidine 10 Mg Tab PO 10 mg BID DEJA Administration Furosemide 20 mg 04/15/21 10:00 04/17/21 23:10 Furosemide 20 Mg Tab PO 20 mg BID DEJA Administration Heparin Sodium (Porcine) 5,000 unit 04/15/21 10:00 04/17/21 23:11 Heparin 5,000 Unit/1 Ml Vial SUB-Q 5,000 unit Q12HR DEJA Administration Hydrochlorothiazide 25 mg 04/15/21 10:00 04/17/21 10:13 Hydrochlorothiazide 25 Mg Tab PO 25 mg DAILY DEJA Administration Hydromorphone HCl 0.5 mg 04/14/21 22:01 Hydromorphone 1 Mg/1 Ml Inj IV Q3H PRN Pain , Severe (7-10) Sodium Chloride 100 mls @ 999 mls/hr 04/18/21 10:00 Nacl 0.9% IV TIFFANIE PRN Hypotension Ondansetron HCl 4 mg 04/14/21 22:01 Ondansetron 4 Mg/2 Ml Inj IV Q8H PRN Nausea And Vomiting Oxycodone/Acetaminophen 1 tab 04/14/21 22:01 04/18/21 00:07 Oxycodone /Acetaminophen 5-325mg Tab PO 1 tab Q6H PRN Administration Pain, Moderate (4-6) Sodium Chloride 10 ml 04/15/21 10:00 04/17/21 23:11 Sodium Chloride 0.9% 10 Ml Flush Syringe IV 10 ml BID DEJA Administration Sodium Chloride 10 ml 04/14/21 22:01 Sodium Chloride 0.9% 10 Ml Flush Syringe IV PRN PRN LINE FLUSH
[2021-04-18 12:28] LABS: Anisocytosis 2+; Band Neutrophils # (Manual) 0.1 K/mm3; Hypochromasia Few; Platelet Estimate Consistent w Auto; Total Cells Counted 100
--- NOTE | 2021-04-18 13:58 | Progress Note ---
Assessment and Plan 65-year-old male with history of lung cancer and end-stage renal disease on hemodialysis was brought to the emergency room because of possible pneumothorax. Patient had a routine PET scan done today. That was ordered by his oncologist. He was called by home after the PET scan told he could return to the emergency department because he had a possible pneumothorax seen on PET scan. Patient states he feels at his baseline. States with his oxygen he is at his baseline level of breathing. Denies any additional cough shortness of breath. Denies any fevers chills. Patient has not missed any appointments with his dialysis. Patient has a port for his chemotherapy as well as a permacatheter for dialysis. Neither of the have been placed in the last [address] scan of the chest in the emergency room showed: 1. Moderately large right pneumothorax. 2. Severe bullous emphysema. 3. Mild bronchiectasis and peribronchial thickening in both lower lobes. There is mild associated pneumonia, predominantly in the left lower lobe. Past Medical History: arthritis, COPD, ESRD, hypertension, other (Lung cancer, asthma, back problem. Patient awake, Resting on 2 litres O2. O2 saturation 100%. Patient denies chest pain or shortness of breath or cough. Patient diagnosed with stage !V lung cancer. Patient received chemotherapy. Patient has heavy history of smoking. Smoked 1 pack a day x 45 years. Stopped smoking 3 years ago. Denies alcohol or drug abuse. 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 Has children 1. Patient afebrile. Has Leukopenia. Blood pressure 13/56. Pulse 95. CT of chest with out contrast 04/14/21 reported Moderately large right pn eumothorax. Severe bullous emphysema. Mild bronchiectasis and peribronchial thickening in both lower lobes. There is mild associated pneumonia, predominantly in the left lower lobe. Chest xray done 04/16/21 reported Since the bullous disease, most notable the right lung apex, unchanged. No definite pneumothorax. No focal airspace consolidation. No pneumothorax. Chest xray done 04/17/21 reported Stable right apical pneumothorax. Patient denies any chest pain or shortness of breath. Patient presently on Brovanna/Budesonide, Albuterol/atrovent aerosol treatments, S/C heparin and famotidine. I - Patient Problems (1) Bullous emphysema with collapse Status: Acute Plan to address problem: Continue bronchodilators. Continue watch bullous disease with repeat chest xray and CAT scan of chest. (2) COPD (chronic obstructive pulmonary disease) Status: Acute Qualifiers: Qualified Code(s): J43.0 - Unilateral pulmonary emphysema [MacLeod's syndrome] Plan to address problem: O2 2 litres via nasal canula. Brovanna/Budesonide aerosol treatments.q 12 hours. Albuterol/atrovent aerosol treatments as needed. Continue S/C Heparin Continue famotidine. (3) ESRD (end stage renal disease) Status: Acute Plan to address problem: Management as per nephrology. (4) Hypertension Status: Acute Plan to address problem: Management as per primary care. (5) Lung cancer Status: Acute Plan to address problem: Stage 1V. Recommend to consult Oncology. Subjective Date of service: 04/18/21 Principal diagnosis: Pneumothorax Interval history: 65-year-old male with history of lung cancer and end-stage renal disease on hemodialysis was brought to the emergency room because of possible pneumothorax. Patient had a routine PET scan done today. That was ordered by his oncologist. He was called by home after the PET scan told he could return to the emergency department because he had a possible pneumothorax seen on PET scan. Patient states he feels at his baseline. States with his oxygen he is at his baseline level of breathing. Denies any additional cough shortness of breath. Denies any fevers chills. Patient has not missed any appointments with his dialysis. Patient has a port for his chemotherapy as well as a permacatheter for dialysis. Neither of the have been placed in the last [address] scan of the chest in the emergency room showed: 1. Moderately large right pneumothorax. 2. Severe bullous emphysema. 3. Mild bronchiectasis and peribronchial thickening in both lower lobes. There is mild associated pneumonia, predominantly in the left lower lobe. Patient has history of arthritis, COPD, ESRD, hypertension, other (Lung cancer, asthma, back problem. Patient awake, Resting on 2 litres O2. O2 saturation 100%. Patient denies chest pain or shortness of breath. Patient diagnosed with stage !V lung cancer. Patient received chemotherapy. Patient has heavy history of smoking. Smoked 1 pack a day x 45 years. Stopped smoking 3 years ago. Denies alcohol or drug abuse. Worked in [employer] and [employer] before he diabled or retired. 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 Has children 1. Patient afebrile. Has Leukopenia. Blood pressure 13/56. Pulse 95. CT of chest with out contrast 04/14/21 reported Moderately large right pneumothorax. Severe bullous emphysema. Mild bronchiectasis and peribronchial thickening in both lower lobes. There is mild associated pneumonia, predominantly in the left lower lobe. Chest xray done 04/16/21 reported Since the bullous disease, most notable the right lung apex, unchanged. No definite pneumothorax. No focal airspace consolidation. No pneumothorax. Chest xray done 04/17/21 reported Stable right apical pneumothorax. Patient denies any chest pain or shortness of breath or cough. Patient presently on Brovanna/Budesonide, Albuterol/atrovent aerosol treatments, S/C heparin and famotidine. Objective Vital Signs - 12hr 04/18/21 04/18/21 04/18/21 03:59 08:20 08:47 Temperature 97.4 F L 97.7 F Pulse Rate 98 H 92 H 100 H Respiratory 20 18 Rate Blood Pressure 133/85 115/74 O2 Sat by Pulse 96 97 98 Oximetry O2 Sat by Pulse Oximetry [ Posterior Bilateral Throughout] 04/18/21 04/18/21 04/18/21 10:00 10:15 10:29 Temperature 98.8 F Pulse Rate 90 90 91 H Respiratory 16 Rate Blood Pressure 121/61 121/61 123/67 O2 Sat by Pulse Oximetry O2 Sat by Pulse 100 Oximetry [ Posterior Bilateral Throughout] 04/18/21 04/18/21 04/18/21 10:45 11:15 11:30 Temperature Pulse Rate 103 H 94 H 110 H Respiratory Rate Blood Pressure 116/65 116/62 118/63 O2 Sat by Pulse Oximetry O2 Sat by Pulse Oximetry [ Posterior Bilateral Throughout] 04/18/21 04/18/21 04/18/21 11:45 12:00 12:15 Temperature Pulse Rate 100 H 98 H 95 H Respiratory Rate Blood Pressure 117/61 114/63 121/60 O2 Sat by Pulse Oximetry O2 Sat by Pulse Oximetry [ Posterior Bilateral Throughout] 04/18/21 04/18/21 04/18/21 12:30 12:45 13:00 Temperature Pulse Rate 95 H 102 H 98 H Respiratory Rate Blood Pressure 109/66 110/57 115/57 O2 Sat by Pulse Oximetry O2 Sat by Pulse Oximetry [ Posterior Bilateral Throughout] 04/18/21 04/18/21 13:15 13:30 Temperature Pulse Rate 97 H 95 H Respiratory Rate Blood Pressure 124/63 101/66 O2 Sat by Pulse Oximetry O2 Sat by Pulse Oximetry [ Posterior Bilateral Throughout] Constitutional: no acute distress, alert Eyes: non-icteric ENT: oropharynx moist Neck: supple, no lymphadenopathy Ascultation: Bilateral: rhonchi (on left side.), other (Prolonged expiratory phase.) Cardiovascular: regular rate and rhythm Gastrointestinal: normoactive bowel sounds, soft, non-tender Integumentary: normal Extremities: no cyanosis, no edema Neurologic: normal mental status, non-focal exam, pupils equal and round Psychiatric: mood appropriate, affect normal CBC and BMP: 04/18/21 04:50 04/18/21 04:50 ABG, PT/INR, D-dimer: ABG ABG pH 7.381 pH Units (7.350-7.450) 04/18/21 09:27 ABG pCO2 48.0 mm Hg 04/18/21 09:27 ABG pO2 50.0 mm Hg (80.0-90.0) L 04/18/21 09:27 ABG O2 Saturation 83.9 % (95.0-99.0) L 04/18/21 09:27 Abnormal lab findings: Abnormal Labs 04/14/21 04/14/21 04/15/21 17:42 17:42 04:13 WBC 1.9 L* Hgb Hct MCH 27 L RDW 24.2 H Seg Neuts % (Manual) 38.0 L Lymphocytes % (Manual) 56.0 H Monocytes % (Manual) Seg Neutrophils # Man 0.7 L Lymphocytes # (Manual) 1.1 L ABG pO2 ABG HCO3 ABG O2 Saturation ABG Hemoglobin Oxyhemoglobin Sodium 133 L 132 L Chloride 87.8 L 90.2 L BUN 45 H 51 H Creatinine 5.4 H 5.8 H Glucose 115 H 102 H 04/16/21 04/16/21 04/17/21 06:28 06:28 15:09 WBC 1.4 L* 1.8 L* Hgb 11.1 L 10.9 L Hct 34.9 L 34.3 L MCH 27 L 27 L RDW 24.0 H 23.3 H Seg Neuts % (Manual) 18.0 L 28.0 L Lymphocytes % (Manual) 64.0 H 45.0 H Monocytes % (Manual) 17.0 H 20.0 H Seg Neutrophils # Man 0.3 L 0.5 L Lymphocytes # (Manual) 0.9 L 0.8 L ABG pO2 ABG HCO3 ABG O2 Saturation ABG Hemoglobin Oxyhemoglobin Sodium 134 L Chloride 93.6 L BUN 32 H Creatinine 4.7 H Glucose 04/18/21 04/18/21 04/18/21 04:50 04:50 09:27 WBC 2.3 L Hgb 10.3 L Hct 32.5 L MCH 27 L RDW 23.5 H Seg Neuts % (Manual) 37.0 L Lymphocytes % (Manual) 44.0 H Monocytes % (Manual) 15.0 H Seg Neutrophils # Man 0.9 L Lymphocytes # (Manual) 1.0 L ABG pO2 50.0 L ABG HCO3 27.8 H ABG O2 Saturation 83.9 L ABG Hemoglobin 11.2 L Oxyhemoglobin 82.0 L Sodium 134 L Chloride 93.0 L BUN 52 H Creatinine 6.4 H Glucose 101 H
[2021-04-18 14:22] VITALS: BP 113/56
== END 2021-04-18 17:33 | disposition home or self-care (01) | DRG 190 ==
LOC: ED 17:23 → CC1 22:01 → IMCU 22:42 → OBSVTOIN 04-15 13:12 → 4A 04-15 23:42
PROVIDERS: ADMIT Hospitalist; ATTEND Internal Medicine
DX: J43.0 Unilateral pulmonary emphysema [MacLeod's syndrome] (principal); N18.6 End stage renal disease; J93.9 Pneumothorax, unspecified; I12.0 Hypertensive chronic kidney disease with stage 5 chronic kidney disease or end stage renal disease; J98.19 Other pulmonary collapse; M16.11 Unilateral primary osteoarthritis, right hip; Z87.891 Personal history of nicotine dependence; Z79.899 Other long term (current) drug therapy; Z99.2 Dependence on renal dialysis; Z85.118 Personal history of other malignant neoplasm of bronchus and lung; E21.3 Hyperparathyroidism, unspecified; D70.9 Neutropenia, unspecified
CPT/HCPCS: 36415; 71045; 71046; 71250; 71270; 80048; 80053; 80074; 82803; 82805; 85007; 85025; 87641; 94640; 94760; G0378; J1447; J1644; Q9967

== ENCOUNTER 2022-02-28 17:12 | Emergency (ER) | payer MEDICARE ==
--- NOTE | 2022-02-28 18:32 | XRay Report ---
CHEST 2 VIEWS INDICATION / CLINICAL INFORMATION: POSSIBLE PNEUMOTHORAX. COMPARISON: One view of the chest from 04/17/2021. FINDINGS: SUPPORT DEVICES: Unchanged right Port-A-Cath and left PermCath. HEART / MEDIASTINUM: Normal size of the cardiac silhouette with unchanged mild aortic atherosclerosis and clips again seen along the course of the proximal descending thoracic aorta. LUNGS / PLEURA: There is an unchanged chronic small right apical pneumothorax with bilateral emphysem atous changes and chronic appearing parenchymal changes. Right middle/lower lobe opacities are noted. No significant pleural effusion. ADDITIONAL FINDINGS: No significant additional findings. IMPRESSION: 1. Right middle/lower lobe opacities could represent pneumonia. Malignancy is also a consideration. C ontinued close imaging follow-up is recommended. 2. Unchanged chronic small right apical pneumothorax with additional findings as above. Signer Name: Joshua Downey MD Signed: 02/28/2022 6:28 PM Workstation Name: [id number]
[2022-02-28 18:37] LABS: Albumin 3.9 g/dL (3.9-5); Calcium 9.2 mg/dL (8.4-10.2)
[2022-02-28 19:02] LABS: Hematocrit 31.1 % (35.5-45.6); Hemoglobin 9.8 gm/dl (11.8-15.2); Mean Corpuscular HGB Conc 32 % (32-34); Mean Corpuscular Volume 85 fl (84-94); Platelet Count 192 K/mm3 (140-440); Red Blood Count 3.65 M/mm3 (3.65-5.03)
[2022-02-28 19:03] LABS: Chol/HDL Ratio 4.66 %
[2022-02-28 19:20] LABS: Red Cell Distribution Width 26.9 % (13.2-15.2)
--- NOTE | 2022-03-01 11:12 | Electrocardiograph Report ---
[facility] Test Date: 2022-02-28 Test Time: 17:35:54 Pat Name: ROWENA RESENDEZ Department: Room: Gender: M [employer]: RAINA : 1955 Requested By: VERONA CANDELARIA Order Number: [id number] Reading MD: Jh Mcdermott Measurements Intervals [place] Rate: 106 P: 76 MO: 173 QRS: -99 QRSD: 148 T: 74 QT: 420 QTc: 553 Interpretive Statements Sinus tachycardia Multiple premature complexes, vent & supraven RBBB and LAFB No previous ECG available for comparison Electronically Signed On 03-01-2022 11:11:47 EDT by Jh Mcdermott
--- NOTE | 2022-03-01 11:56 | Emergency Department Report ---
ED General Adult HPI - General Chief complaint: Dyspnea/Respdistress Stated complaint: PER DOCTOR PNEUMOTHORAX POST CT SCAN Time Seen by Provider: 03/01/22 11:18 Source: patient Mode of arrival: Ambulatory Limitations: No Limitations - History of Present Illness Initial comments: 66 yo male with cancer and esrd presents to the ED after being recommended to come to the emergency department for evaluation of a pneumothorax that was found on a CT scan in another location. Patient denies any symptoms, and did not want to come to the ER. Patient denies chest pain, shortness of breath, palpitations, or other symptoms. Patient is aware that he has previously been diagnosed with a small pneumothorax. Patient is requesting to be discharged home, as he has been here for many hours, and has missed his dialysis for the day. Severity scale (0 -10): 0 - Related Data Home Medications Medication Instructions Recorded Confirmed Last Taken Albuterol Sulfate [Proventil HFA] 2 puff INHALATION PRN PRN 08/30/13 04/14/21 12/11/16 hydroCHLOROthiazide 25 mg PO DAILY 08/30/13 04/14/21 12/12/16 07:00 [Hydrochlorothiazide] cloNIDine [Catapres] 0.2 mg PO QHS 05/29/14 04/14/21 09/26/16 Fluticasone/Salmeterol [Advair 1 puff INHALATION BID 06/29/14 04/14/21 12/12/16 07:00 Diskus 250-50 mcg] Previous Rx's Medication Instructions Recorded Last Taken Type Acetaminophen/Codeine [Tylenol 1 tab PO Q6H PRN #7 tab 01/26/17 Unknown Rx /Codeine # 3 tab] traMADoL [Ultram 50 MG tab] 50 mg PO Q6HR PRN #20 tablet 07/05/18 Unknown Rx Furosemide [Lasix TAB] 20 mg PO BID #60 tablet 09/21/19 Unknown Rx cephALEXin [Keflex] 500 mg PO Q12HR #6 cap 03/01/22 Unknown Rx Allergies Allergy/AdvReac Type Severity Reaction Status Date / Time No Known Allergies Allergy Verified 04/14/21 17:38 ED Review of Systems ROS: Stated complaint: PER DOCTOR PNEUMOTHORAX POST CT SCAN Other details as noted in HPI Comment: All other systems reviewed and negative Constitutional: denies: chills, fever Eyes: denies: eye pain, eye discharge, vision change ENT: denies: ear pain, throat pain Respiratory: denies: cough, shortness of breath, wheezing Cardiovascular: denies: chest pain, palpitations Endocrine: no symptoms reported Gastrointestinal: denies: abdominal pain, nausea, diarrhea Genitourinary: denies: urgency, dysuria Musculoskeletal: denies: back pain, joint swelling, arthralgia Skin: denies: rash, lesions Neurological: denies: headache, weakness, paresthesias Psychiatric: denies: anxiety, depression Hematological/Lymphatic: denies: easy bleeding, easy bruising ED Past Medical Hx - Past Medical History Hx Hypertension: Yes Hx Heart Attack/AMI: No Hx Renal Disease: Yes (Dialysis m/w/f) Hx of Cancer: Yes (Lung CA) Hx Arthritis: Yes (OA right hip) Hx Seizures: No Hx Asthma: Yes Hx COPD: Yes (home O2 at 2lpm) Hx Tuberculosis: No Hx HIV: No Additional medical history: "BACK PROBLEMS" - Surgical History Additional Surgical History: LEFT TIB / FIB FX/right hip 06/2019. Patient states had to have hardware removed 1 week after placement due to infection. This was done at [facility] 2011. Thumb dislocation with reduction - Social History Smoking Status: Never Smoker Substance Use Type: Alcohol - Medications Home Medications: Home Medications Medication Instructions Recorded Confirmed Last Taken Type Albuterol Sulfate [Proventil HFA] 2 puff INHALATION PRN PRN 08/30/13 04/14/21 12/11/16 History hydroCHLOROthiazide 25 mg PO DAILY 08/30/13 04/14/21 12/12/16 07:00 History [Hydrochlorothiazide] cloNIDine [Catapres] 0.2 mg PO QHS 05/29/14 04/14/21 09/26/16 History Fluticasone/Salmeterol [Advair 1 puff INHALATION BID 06/29/14 04/14/21 12/12/16 07:00 History Diskus 250-50 mcg] Acetaminophen/Codeine [Tylenol 1 tab PO Q6H PRN #7 tab 01/26/17 04/14/21 Unknown Rx /Codeine # 3 tab] traMADoL [Ultram 50 MG tab] 50 mg PO Q6HR PRN #20 tablet 07/05/18 04/14/21 Unknown Rx Furosemide [Lasix TAB] 20 mg PO BID #60 tablet 09/21/19 04/14/21 Unknown Rx cephALEXin [Keflex] 500 mg PO Q12HR #6 cap 03/01/22 Unknown Rx ED Physical Exam - General Limitations: No Limitations General appearance: alert, in no apparent distress - Head Head exam: Present: atraumatic, normocephalic - Eye Eye exam: Present: normal appearance - ENT ENT exam: Present: mucous membranes moist - Neck Neck exam: Present: normal inspection - Respiratory Respiratory exam: Present: normal lung sounds bilaterally. Absent: respiratory distress - Cardiovascular Cardiovascular Exam: Present: regular rate, normal rhythm. Absent: systolic murmur, diastolic murmur, rubs, gallop - GI/Abdominal GI/Abdominal exam: Present: soft, normal bowel sounds - Rectal Rectal exam: Present: deferred - Extremities Exam Extremities exam: Present: normal inspection - Back Exam Back exam: Present: normal inspection - Neurological Exam Neurological exam: Present: alert, oriented X3 - Psychiatric Psychiatric exam: Present: normal affect, normal mood - Skin Skin exam: Present: warm, dry, intact, normal color. Absent: rash ED Course Vital Signs 02/28/22 03/01/22 03/01/22 17:27 08:41 09:06 Temperature 97.9 F 97.5 F L 98.4 F Pulse Rate 114 H 91 H 90 Respiratory 15 20 20 Rate Blood Pressure 125/73 Blood Pressure 110/75 133/67 [Right] O2 Sat by Pulse 98 98 100 Oximetry 03/01/22 03/01/22 11:41 12:46 Temperature 97.4 F L 97.8 F Pulse Rate 84 72 Respiratory 20 20 Rate Blood Pressure Blood Pressure 134/78 138/78 [Right] O2 Sat by Pulse 97 97 Oximetry - Reevaluation(s) Reevaluation #1: Patient was made aware that he could not get dialysis hospital without being admitted, and patient is declining admission, as he is not short of breath, and will go to his dialysis center, tomorrow. ED Medical Decision Making - Lab Data Result diagrams: 02/28/22 17:41 02/28/22 17:41 Critical care attestation.: If time is entered above; I have spent that time in minutes in the direct care of this critically ill patient, excluding procedure time. ED Disposition Clinical Impression: Acute abscess of face Pneumothorax Qualifiers: Pneumothorax type: unspecified pneumothorax Qualified Code(s): J93.9 - Pneumothorax, unspecified Disposition: HOME / SELF CARE / HOMELESS Is pt being admited?: No Does the pt Need Aspirin: No Condition: Stable Instructions: Skin Abscess, Pneumothorax Additional Instructions: Please inform your doctors that the pneumothorax that you have is chronic and very small. Please return to the emergency department if you have any symptoms such as shortness of breath or chest pain. Prescriptions: cephALEXin [Keflex] 500 mg PO Q12HR #6 cap Referrals: PRIMARY CARE, [Primary Care Provider] - 3-5 Days Time of Disposition: 12:24
[2022-03-01 12:47] VITALS: BP 138/78
== END 2022-03-01 12:46 | disposition home or self-care (01) ==
LOC: ED 17:12
DX: J93.9 Pneumothorax, unspecified (principal); L02.01 Cutaneous abscess of face; I10 Essential (primary) hypertension; M19.90 Unspecified osteoarthritis, unspecified site; J45.909 Unspecified asthma, uncomplicated; N28.9 Disorder of kidney and ureter, unspecified; Z98.890 Other specified postprocedural states; Z79.899 Other long term (current) drug therapy
CPT/HCPCS: 36415; 71046; 80053; 80061; 84484; 85027; 93005; 99284